=== PATIENT | female | born 1950 | race Caucasian/White ===

== ENCOUNTER → 2016-12-27 | Outpatient (CLI) | payer OTHER, MEDICARE ==
[~2016-12-27] MED LIST: ASCA500 PO; B-COTAB18 PO; CLB200 PO; CMD5 PO; COEN1CAP28 PO; COLLCAP PO; GLUC10007 PO; HYDROCHLOROTHIAZIDE PO; LEVO112T4 PO; METO-217 PO; TRIA75TA53 PO; TRIAMTERENE PO; ULT50X PO; VTMD1000 PO; ZCR20 PO
[2016-12-27 17:30] LABS: BASO % 0.5 %; BASO ABS # 0.05 K/uL (0-0.2); COMPLETE YES; EOS % 2.6 %; IG% 0.3 %; LYMPH % 23.4 %; LYMPH ABS # 2.34 K/uL (1.2-3.4); MEAN CELL VOLUME 89.9 fL (80-100); MEAN CORPUSCULAR HEMOGLOBIN 31.7 pg (25-34); MEAN CORPUSCULAR HGB CONC 35.2 g/dl (32-36); MEAN PLATELET VOLUME 11.4 fL (7.4-10.4); MONO % 7.7 %; NEUT % 65.5 %; PLATELET COUNT 308 K/uL (130-400); RED BLOOD COUNT 4.67 M/uL (4.2-5.4)
[2016-12-27 17:47] LABS: INR 2.1 (0.9-1.1); PROTHROMBIN TIME (PATIENT) 23.6 SECONDS (9.0-12.0)
[2016-12-27 18:04] LABS: BLOOD UREA NITROGEN 15 mg/dl (7-18); BUN/CREATININE RATIO 18.5 (10-20); CALCIUM 9.5 mg/dl (8.5-10.1); CARBON DIOXIDE 27 mmol/L (21-32); CHLORIDE 98 mmol/L (98-107); GLUCOSE 91 mg/dl (70-99); POTASSIUM 3.2 mmol/L (3.5-5.1); SODIUM 136 mmol/L (136-145)
[2016-12-27 18:17] LABS: ALB/GLOB RATIO 0.9 (0.9-2); ALKALINE PHOSPHATASE 68 U/L (45-117); ALT/SGPT 32 U/L (12-78); AST/SGOT 23 U/L (15-37); CHOLESTEROL 249 mg/dl (0-200); CHOLESTEROL/HDL RATIO 5.1; HDL CHOLESTEROL 49 mg/dl; LDL CHOLESTEROL CALCULATED 166 mg/dl; THYROID STIMULATING HORMONE 0.924 uIu/ml (0.300-4.500); TRIGLYCERIDES 170 mg/dl (0-150); VERY LOW DENSITY LIPOPROT CALC 34 mg/dl
== END | disposition home or self-care (01) ==
LOC: C.LABPBG 12:37
PROVIDERS: ATTEND Family Medicine
DX: E78.5 Hyperlipidemia, unspecified (principal); I10 Essential (primary) hypertension; E03.9 Hypothyroidism, unspecified; Z13.0 Encounter for screening for diseases of the blood and blood-forming organs and certain disorders involving the immune mechanism; I48.91 Unspecified atrial fibrillation

== ENCOUNTER → 2016-12-30 | Outpatient (CLI) | payer OTHER, MEDICARE ==
--- NOTE | 2017-01-03 12:31 | CODING QUERY MEDICAL NECESSITY ---
SUPPORTING DIAGNOSIS NEEDED A supporting diagnosis is required for the test/procedure performed on this patient in order for us to be reimbursed by the patient's insurance. Please provide a supporting diagnosis for the following test/procedure listed below next to the test name along with your signature. *If there is no additional diagnosis for this patient that would support the following test/procedure please document that below next to the test/procedure. Test(s)/Procedure(s) that require a supporting diagnosis: DOS 12/30 * Bone Density Study DIAGNOSIS: Provider Signature: Date: Thank you Mayda Mccollum Health Information Management Once completed, please kindly fax back to [phone] For questions please call [phone]
== END | disposition home or self-care (01) ==
LOC: C.MAMM 07:40
PROVIDERS: ATTEND Family Medicine
DX: Z13.820 Encounter for screening for osteoporosis (principal)

== ENCOUNTER → 2017-06-19 | Outpatient (CLI) | payer OTHER, MEDICARE | END | disposition home or self-care (01) | LOC: C.LABPBG 12:14 | PROVIDERS: ATTEND Family Medicine | DX: Z11.59 Encounter for screening for other viral diseases (principal); I48.91 Unspecified atrial fibrillation ==

== ENCOUNTER → 2017-08-07 | Outpatient (CLI) | payer OTHER, MEDICARE ==
[~2017-08-07] MED LIST changes: +OPTIRAY 320 IV PRN
--- NOTE | 2017-08-07 08:24 | DIAGNOSTIC IMAGING REPORT ---
CT SCAN OF THE ABDOMEN AND PELVIS COMBO CLINICAL HISTORY: Generalized abdominal pain. Hematoma. COMPARISON STUDY: No priors. TECHNIQUE: Before and following the IV administration of 115 cc of Optiray 320, CT scan of the abdomen and pelvis is performed from the lung bases to the proximal femora. Images are reviewed in the axial, sagittal, and coronal planes. IV contrast was administered without complication. A dose lowering technique was utilized adhering to the principles of ALARA. CT DOSE: 2743.94 mGy.cm FINDINGS: Lung bases: The heart is top normal in size and without pericardial effusion. The lung bases are clear noting bibasilar atelectasis. Liver: The contrast-enhanced liver is normal in size, contour, and attenuation. There is no intrahepatic biliary ductal dilatation. The hepatic veins and portal veins are patent. Gallbladder: Unremarkable. Spleen: Normal in size and attenuation. Pancreas: Unremarkable. Adrenal glands: Unremarkable. Kidneys: No renal calculi are identified on the unenhanced series. The contrast enhanced kidneys demonstrate mild cortical atrophy and are without hydronephrosis. The kidneys enhance symmetrically. Subcentimeter cortical hypodensities likely represent cysts but are too small for definitive characterization. Abdominal vasculature: The abdominal aorta is normal in course and caliber noting moderate atherosclerotic calcification. Bowel: There is a tiny duodenal diverticulum. A large complex umbilical hernia contains a segment of the transverse colon. No bowel obstruction is seen. There is mild to moderate diverticulosis of the left colon without CT evidence of acute diverticulitis. The appendix is not identified and reported surgically absent. Peritoneum/retroperitoneum: There is no intraperitoneal free air or abdominal ascites. No retroperitoneal hematoma is identified. Lymphadenopathy: None. Pelvic viscera: The bladder is normal as visualized. The uterus is surgically absent. No adnexal lesion is seen. Skeletal structures: The skeletal structures are osteopenic. Moderate lumbosacral spondylosis is observed. There are bilateral pars defects at L5 with advanced this space narrowing and 1.2 cm of anterolisthesis at L5-S1. Sclerotic change is noted in the pubic symphysis and sacroiliac joints. No lytic or blastic lesions are seen. IMPRESSION: 1. There are no acute infectious or inflammatory findings in the abdomen or pelvis. 2. There is a large complex umbilical hernia which contains a nonobstructed segment of the transverse colon. 3. There is mild to moderate diverticulosis of left colon without CT evidence of acute diverticulitis. 4. Additional findings as above. Electronically signed by: Baljit Fink M.D. 08/07/2017 8:23 AM Dictated Date/Time: 08/07/2017 8:15 AM
== END | disposition home or self-care (01) ==
LOC: C.CTS 07:24
PROVIDERS: ATTEND Family Medicine
DX: R10.9 Unspecified abdominal pain (principal); T14.8 Other injury of unspecified body region; X58.XXXA Exposure to other specified factors, initial encounter; K42.9 Umbilical hernia without obstruction or gangrene; K57.90 Diverticulosis of intestine, part unspecified, without perforation or abscess without bleeding

== ENCOUNTER → 2017-08-08 | Outpatient (CLI) | payer OTHER, MEDICARE ==
[~2017-08-08] MED LIST changes: -OPTIRAY 320 IV PRN
[2017-08-08 12:24] LABS: HEMATOCRIT 45.6 % (37-47); MEAN CELL VOLUME 92.9 fL (80-100); MEAN CORPUSCULAR HEMOGLOBIN 30.8 pg (25-34); MEAN CORPUSCULAR HGB CONC 33.1 g/dl (32-36); PLATELET COUNT 278 K/uL (130-400); RED BLOOD COUNT 4.91 M/uL (4.2-5.4); WHITE BLOOD COUNT 8.76 K/uL (4.8-10.8)
[2017-08-08 13:12] LABS: LYME DISEASE AB IGG NEG (NEG); LYME DISEASE AB IGM NEG (NEG)
[2017-08-08 13:15] LABS: ALB/GLOB RATIO 0.9 (0.9-2); ALT/SGPT 33 U/L (12-78); AST/SGOT 22 U/L (15-37); BLOOD UREA NITROGEN 15 mg/dl (7-18); CALCIUM 9.3 mg/dl (8.5-10.1); CARBON DIOXIDE 28 mmol/L (21-32); CHLORIDE 103 mmol/L (98-107); CREATININE 0.85 mg/dl (0.60-1.20); GLUCOSE 99 mg/dl (70-99); POTASSIUM 3.7 mmol/L (3.5-5.1); SODIUM 138 mmol/L (136-145)
[2017-08-08 13:38] LABS: ALKALINE PHOSPHATASE 57 U/L (45-117); THYROID STIMULATING HORMONE 0.439 uIu/ml (0.300-4.500)
== END | disposition home or self-care (01) ==
LOC: C.LABPBG 10:54
PROVIDERS: ATTEND Family Medicine
DX: I48.91 Unspecified atrial fibrillation (principal); R10.9 Unspecified abdominal pain; E03.9 Hypothyroidism, unspecified; T14.8 Other injury of unspecified body region; W57.XXXA Bitten or stung by nonvenomous insect and other nonvenomous arthropods, initial encounter

== ENCOUNTER 2017-08-12 14:44 | Observation (INO) | payer OTHER, MEDICARE ==
[~2017-08-12] VITALS: Ht 160 cm; Wt 96.8 kg
[~2017-08-12 14:44] MED LIST changes: -B-COTAB18 PO; -COEN1CAP28 PO; -COLLCAP PO; -TRIA75TA53 PO
[2017-08-12] MEDS ORDERED: TRIA75TA53 PO ×2 (15:20)
[2017-08-12] MEDS ORDERED: COLLCAP PO ×2 (15:21)
[2017-08-12] MEDS ORDERED: COEN1CAP28 PO ×2 (15:21)
[2017-08-12] MEDS ORDERED: B-COTAB18 PO ×2 (15:21)
[2017-08-12] MEDS ORDERED: ASPIRIN 81 MG CHEW PO STA (15:24)
[2017-08-12] MEDS ORDERED: NITROGLYCERIN 0.4 MG SL PER TAB CHARGE SL PRN ×2 (15:30→18:15)
[2017-08-12] MEDS ORDERED: OPTIRAY 320 IV PRN (15:30)
[2017-08-12 15:33] LABS: BASO % 0.4 %; BASO ABS # 0.04 K/uL (0-0.2); COMPLETE YES; EOS % 1.3 %; HEMATOCRIT 44.7 % (37-47); IG% 0.5 %; LYMPH % 22.7 %; LYMPH ABS # 2.26 K/uL (1.2-3.4); MEAN CELL VOLUME 89.6 fL (80-100); MEAN CORPUSCULAR HEMOGLOBIN 31.9 pg (25-34); MEAN CORPUSCULAR HGB CONC 35.6 g/dl (32-36); MEAN PLATELET VOLUME 10.7 fL (7.4-10.4); MONO % 5.8 %; NEUT % 69.3 %; PLATELET COUNT 258 K/uL (130-400); RED BLOOD COUNT 4.99 M/uL (4.2-5.4); WHITE BLOOD COUNT 9.95 K/uL (4.8-10.8)
--- NOTE | 2017-08-12 15:42 | DIAGNOSTIC IMAGING REPORT ---
CHEST ONE VIEW PORTABLE CLINICAL HISTORY: cp dyspnea COMPARISON STUDY: No previous studies for comparison. FINDINGS: The bones soft tissues and hemidiaphragms are normal. The cardiomediastinal silhouette is normal. The lungs are clear. The pulmonary vasculature is normal. IMPRESSION: Negative chest. The above report was generated using voice recognition software. It may contain grammatical, syntax or spelling errors. Electronically signed by: Yosef Osborne M.D. 08/12/2017 3:41 PM Dictated Date/Time: 08/12/2017 3:40 PM
[2017-08-12 15:52] LABS: ALT/SGPT 32 U/L (12-78); AST/SGOT 24 U/L (15-37); BLOOD UREA NITROGEN 11 mg/dl (7-18); CALCIUM 9.7 mg/dl (8.5-10.1); CARBON DIOXIDE 27 mmol/L (21-32); CHLORIDE 99 mmol/L (98-107); GLUCOSE 97 mg/dl (70-99); POTASSIUM 3.2 mmol/L (3.5-5.1); SODIUM 136 mmol/L (136-145)
[2017-08-12 15:57] LABS: ALKALINE PHOSPHATASE 58 U/L (45-117)
[2017-08-12] MEDS ORDERED: MoRPHine SULFATE 10 MG/ML CARP/VIAL IV STA (16:02)
[2017-08-12] MEDS ORDERED: ONDANSETRON INJ 2 MG/ML 2 ML VIAL IV STA (16:02)
--- NOTE | 2017-08-12 17:20 | DIAGNOSTIC IMAGING REPORT ---
CT OF THE ABDOMEN AND PELVIS WITH CONTRAST CLINICAL HISTORY: Abdominal pain. COMPARISON STUDY: CT of the abdomen and pelvis August 07, 2017. TECHNIQUE: Following IV administration of 116 mL of Optiray-320, axial images of the abdomen and pelvis were obtained from the lung bases to the proximal femurs. Images were reviewed in the axial, sagittal, and coronal planes. IV contrast was administered without complication. A dose lowering technique was utilized adhering to the principles of ALARA. CT DOSE: 1281.59 mGy.cm FINDINGS: Fatty infiltration of the liver is noted. No hepatic lesions are present. There are multiple subcentimeter renal lesions which are too small to characterize. The spleen, adrenal glands and pancreas are unremarkable. There is mild gallbladder distention without pericholecystic infiltration. Note is made of an umbilical hernia which contains a portion of the transverse colon. There is no resultant bowel obstruction. Left colon diverticulosis is noted without evidence for acute diverticulitis. The appendix is not identified. There is no lymphadenopathy. No suspicious osseous lesion is present. IMPRESSION: 1. No bowel obstruction. Umbilical hernia which contains a portion of the transverse colon which is unchanged since prior CT. 2. Mild gallbladder distention without pericholecystic infiltration. 3. Fatty liver. Electronically signed by: Irwin Aranda M.D. 08/12/2017 5:19 PM Dictated Date/Time: 08/12/2017 5:06 PM
--- NOTE | 2017-08-12 18:02 | History and Physical ---
History & Physical Date & Time of Service: Aug 12, 2017 at 18:00 Chief Complaint: Abdominal Pain And Chest Discomfort Primary Care Physician: Julia Waller, History of Present Illness Source: patient This is a 66 yo F with PMHx of hypertension, hyperlipidemia, atrial fibrillation on coumadin, hypothyroidism s/p subtotal thyroidectomy from Graves disease, history of uterine carcinoma s/p KHLOE in 2001 and obesity with BMI=38.7 , presenting with abdominal pain/hematoma and chest pain to the ER today. The patient notes that her pain in her abdomen began approximately 2 weeks ago around the umbilicus. She noticed a burning and slight tenderness at that time, and then developed an area of ecchymosis on the upper right side of her umbilicus which extended down to the suprapubic region. The patient decided that he should stop taking her Coumadin for 2 days, this was approximately 10 days ago, and then resumed it once the bruising was improving. The patient was seen by Dr. Waller in the office on 08/01/[address] of the abdomen ordered which was completed 08/07/17 which showed no bowel obstruction. There is an umbilical hernia which contains a portion of the transverse colon. A repeat CT abd completed today shows no changes. The patient was concerned about developing chest pain along with the abdominal pain today. The patient admits that she has a small dog which frequently jumps up on the middle of her chest, and attributes some of the pain/soreness to that. She denies any sharp or quick pains in the chest, no radiation, no lightheadedness or dizziness. She does admit that it feels somewhat like an anxiety attack. The patient's bowels last moved this morning which appeared normal to her. She has tolerated regular diet and denies any nausea or vomiting. Here in the ER the patient's initial troponin is negative. Her potassium is slightly low at 3.2. Checking INR as one was not drawn in the ER. No leukocytosis. Other labs are within normal limits. ET of the abdomen and pelvis was reviewed and shows no bowel obstruction. Umbilical hernia which contains portion of the transverse colon, unchanged from prior CT. Past Medical/Surgical History Atrial fibrillation on Coumadin Hypothyroidism History of uterine carcinoma Hypertension Hyperlipidemia Obesity, BMI equals 38.7 Surgical history Tonsillectomy and adenoidectomy Subtotal thyroidectomy Total abdominal hysterectomy Social History Smoking Status: Never Smoker Alcohol Use: occasionally (once per year) Drug Use: none Housing status: lives with family (mother) Occupational Status: retired (nurse) Allergies Coded Allergies: Tetanus Toxoid (Verified Allergy, Unknown, LOCAL REACTION, 08/12/17) Home Medications Scheduled Ascorbic Acid (Vitamin C), 1,000 MG PO DAILY B-Complex Vitamins (Vitamin B Complex), 1 TAB PO DAILY Cholecalciferol (Vitamin D3), 5,000 TAB PO 5XWK Coenzyme Q10 (Ubidecarenone) (Co Q10), 200 MG PO DAILY Collagen-Vitamin C (Collagen Plus Vitamin C), 1 CAP PO DAILY Levothyroxine Sodium (Levothyroxine Sodium), 112 MCG PO DAILY Metoprolol Succinate (Toprol Xl), 50 MG PO BID Triamterene/Hctz (Maxzide 75MG/50MG), 1 TAB PO QAM Warfarin Sod (Coumadin), 5 MG PO DAILY Review of Systems Constitutional: No fever, sweats or chills Eyes: No diplopia, no worsening or blurred vision ENT: normal hearing, no trouble swallowing Respiratory: No cough, sputum, dyspnea at rest or on exertion Cardiovascular: + chest pain, No tightness or palpitations Abdomen: + pain, No nausea, vomiting, diarrhea or constipation Musculoskeletal: No joint pain, calf pain, swelling Neurologic: No weakness, numbness/tingling, or balance problems Psychiatric: No anxiety or depression Skin: No rash or itch Physical Exam Vital Signs Date Time Temp Pulse Resp B/P (MAP) Pulse Ox O2 Delivery O2 Flow Rate FiO2 08/12/17 16:49 87 16 96 08/12/17 16:44 87 16 96 08/12/17 16:39 90 14 96 08/12/17 16:34 93 11 97 08/12/17 16:29 95 16 97 08/12/17 16:24 98 16 97 08/12/17 16:19 105 13 96 08/12/17 16:14 90 13 96 08/12/17 16:09 99 14 97 08/12/17 16:04 90 11 97 08/12/17 16:04 82 08/12/17 16:02 95 20 147/80 97 Room Air 08/12/17 15:59 89 11 95 08/12/17 15:54 106 9 95 08/12/17 15:49 106 17 98 08/12/17 15:41 147/80 08/12/17 14:52 36.6 95 18 164/91 97 Room Air General: awake, alert, no apparent distress, obese Head: Normocephalic, atraumatic ENT: PERRL, EOMI, no pharyngeal exudate, mucous membranes moist Chest: Clear to auscultation, on room air, no adventitious breath sounds Cardiac: nontender with palpation, +irregularly irregular, no murmur, no JVD, normal peripheral pulses Abdominal: + Ecchymosis below the umbilicus, + hard area underlying ecchymotic area, NABS x 4 quadrants, soft, nontender to palpation, no rebound, guarding or tenderness Extremities: Normal inspection, no peripheral edema or erythema, calfs nontender to palpation Psych: Normal mood and affect Neuro: AAO x 3, strength intact bilaterally and related 5/5, no motor deficits, speech is clear, no peripheral sensory deficits Diagnostics Laboratory Results Results Past 24 Hours Test 08/12/17 15:18 Range/Units White Blood Count 9.95 4.8-10.8 K/uL Red Blood Count 4.99 4.2-5.4 M/uL Hemoglobin 15.9 12.0-16.0 g/dL Hematocrit 44.7 37-47 % Mean Corpuscular Volume 89.6 80-100 fL Mean Corpuscular Hemoglobin 31.9 25-34 pg Mean Corpuscular Hemoglobin Concent 35.6 32-36 g/dl Platelet Count 258 130-400 K/uL Mean Platelet Volume 10.7 7.4-10.4 fL Neutrophils (%) (Auto) 69.3 % Lymphocytes (%) (Auto) 22.7 % Monocytes (%) (Auto) 5.8 % Eosinophils (%) (Auto) 1.3 % Basophils (%) (Auto) 0.4 % Neutrophils # (Auto) 6.89 1.4-6.5 K/uL Lymphocytes # (Auto) 2.26 1.2-3.4 K/uL Monocytes # (Auto) 0.58 0.11-0.59 K/uL Eosinophils # (Auto) 0.13 0-0.5 K/uL Basophils # (Auto) 0.04 0-0.2 K/uL RDW Standard Deviation 44.8 36.4-46.3 fL RDW Coefficient of Variation 13.7 11.5-14.5 % Immature Granulocyte % (Auto) 0.5 % Immature Granulocyte # (Auto) 0.05 0.00-0.02 K/uL Sodium Level 136 136-145 mmol/L Potassium Level 3.2 3.5-5.1 mmol/L Chloride Level 99 98-107 mmol/L Carbon Dioxide Level 27 21-32 mmol/L Anion Gap 10.0 3-11 mmol/L Blood Urea Nitrogen 11 7-18 mg/dl Creatinine 0.80 0.60-1.20 mg/dl Est Creatinine Clear Calc Drug Dose 78.7 ml/min Estimated GFR () 89.7 Estimated GFR (Non- 77.4 BUN/Creatinine Ratio 14.0 10-20 Random Glucose 97 70-99 mg/dl Calcium Level 9.7 8.5-10.1 mg/dl Total Bilirubin 0.7 0.2-1 mg/dl Direct Bilirubin 0.2 0-0.2 mg/dl Aspartate Amino Transf (AST/SGOT) 24 15-37 U/L Alanine Aminotransferase (ALT/SGPT) 32 12-78 U/L Alkaline Phosphatase 58 45-117 U/L Troponin I < 0.015 0-0.045 ng/ml Total Protein 8.1 6.4-8.2 gm/dl Albumin 3.9 3.4-5.0 gm/dl Lipase 99 73-393 U/L Diagnostic Radiology CHEST ONE VIEW PORTABLE CLINICAL HISTORY: cp dyspnea COMPARISON STUDY: No previous studies for comparison. FINDINGS: The bones soft tissues and hemidiaphragms are normal. The cardiomediastinal silhouette is normal. The lungs are clear. The pulmonary vasculature is normal. IMPRESSION: Negative chest. The above report was generated using voice recognition software. It may contain grammatical, syntax or spelling errors. Electronically signed by: Yosef Osborne M.D. 08/12/2017 3:41 PM Dictated Date/Time: 08/12/2017 3:40 PM The status of this report is Signed. CT OF THE ABDOMEN AND PELVIS WITH CONTRAST CLINICAL HISTORY: Abdominal pain. COMPARISON STUDY: CT of the abdomen and pelvis August 07, 2017. TECHNIQUE: Following IV administration of 116 mL of Optiray-320, axial images of the abdomen and pelvis were obtained from the lung bases to the proximal femurs. Images were reviewed in the axial, sagittal, and coronal planes. IV contrast was administered without complication. A dose lowering technique was utilized adhering to the principles of ALARA. CT DOSE: 1281.59 mGy.cm FINDINGS: Fatty infiltration of the liver is noted. No hepatic lesions are present. There are multiple subcentimeter renal lesions which are too small to characterize. The spleen, adrenal glands and pancreas are unremarkable. There is mild gallbladder distention without pericholecystic infiltration. Note is made of an umbilical hernia which contains a portion of the transverse colon. There is no resultant bowel obstruction. Left colon diverticulosis is noted without evidence for acute diverticulitis. The appendix is not identified. There is no lymphadenopathy. No suspicious osseous lesion is present. IMPRESSION: 1. No bowel obstruction. Umbilical hernia which contains a portion of the transverse colon which is unchanged since prior CT. 2. Mild gallbladder distention without pericholecystic infiltration. 3. Fatty liver. Electronically signed by: Irwin Aranda M.D. 08/12/2017 5:19 PM Dictated Date/Time: 08/12/2017 5:06 PM The status of this report is Signed. EKG Vent. rate 81 BPM GA interval * ms QRS duration 90 ms QT/QTc 398/462 ms P-R-T axes * 0 17 Atrial fibrillation Poor R wave progression, consider anterior MO vs. lead placement vs. LVH Abnormal ECG When compared with ECG of 21-OCT-2014 15:54, No significant change Confirmed by DONNIE SWEENEY ([id number]) on 08/12/2017 4:38:32 PM Impression Assessment and Plan This is a 66 yo F with PMHx of hypertension, hyperlipidemia, atrial fibrillation on coumadin, hypothyroidism s/p subtotal thyroidectomy from Graves disease, history of uterine carcinoma s/p KHLOE in 2001 and obesity with BMI=38.7 , presenting with abdominal pain/hematoma and chest pain to the ER today. The patient notes that her pain in her abdomen began approximately 2 weeks ago around the umbilicus. Chest pain - Admit the patient to telemetry for observation - Initial troponin was negative, will trend 2 more sets - EKG reviewed showing atrial fibrillation, no signs of ST wave inversion or ischemia - Chest is nontender to palpation on exam - Nitroglycerin tabs when necessary Abdominal pain Abdominal hematoma - CT abd/pelvis reviewed which showing an umbilical hernia with portion of the transverse colon. No obstruction. Fatty liver. Mild gallbladder distention without pericholecystic infiltration. - Allow liquid diet for bowel rest- patient not complaining of nausea or vomiting, last bowel movement was this morning, is passing gas. - Checking INR with abdominal hematoma - Gen. surgery consulted for consultation of umbilical hernia repair Atrial fibrillation - Continue Coumadin 5 mg PO daily - Checking INR, adjust Coumadin accordingly, follow up with a.m. labs Hypertension - Continue Toprol-XL 50 mg BID and triamterene/HCTZ 75/50 QAM. Obesity BMI=38.7 - Diet and exercise should continue to be encouraged DVT prophylaxis: Teds, SCDs, Coumadin CODE STATUS: Full code Disposition: Admit to telemetry for observation, patient from home. Level of Care Telemetry Resuscitation Status FULL RESUSCITATION VTE Prophylaxis VTE Risk Assessment Done? Y/N: Yes Risk Level: Low Given or contraindicated: Warfarin (Coumadin), T.E.D. Stockings, SCD's
[2017-08-12] MEDS ORDERED: ACETAMINOPHEN 325 MG TAB PO PRN (18:15)
[2017-08-12] MEDS ORDERED: ONDANSETRON INJ 2 MG/ML 2 ML VIAL IV PRN (18:15)
[2017-08-12 19:24] VITALS: BP 144/83; PULSE 87; TEMP 36.8; O2SAT 97
[2017-08-12 20:21] LABS: INR 1.9 (0.9-1.1); PROTHROMBIN TIME (PATIENT) 21.4 SECONDS (9.0-12.0)
[2017-08-12] MEDS ORDERED: POTASSIUM CHLORIDE 20 MEQ TABCR PO STA (20:39)
--- NOTE | 2017-08-12 20:39 | Surgery Consultation ---
Consultation Date of Consultation: Aug 12, 2017. Attending Physician: Rafael Calero MD, PhD History of Present Illness Fariha Angeles is a 66 year old woman with HTN, hyperlipidemia, atrial fibrillation on coumadin, hypothyroidism s/p subtotal thyroidectomy (Graves diseas), hx of uterine carcinoma s/p KHLOE in 2001 who presents with abdominal pain radiating into her chest. Patient states she has had an umbilical hernia for approximately 15 years s/p her hysterectomy. It has been very slowly growing in size, but otherwise has not caused any pain or discomfort. Approximately 2 weeks ago, she noticed bruising around the umbilicus and presented to her PCP for evaluation. A CT scan was completed on 08/07/17, which showed an umbilical hernia containing transverse colon - but otherwise no signs of obstruction or other abnormalities. The bruising eventually resolved. Today , she started having epigastric pain which radiated into her chest. She presented to the ED for evaluation. A cardiac workup was initiated, and a CT scan was repeated - which again shows an umbilical hernia containing a portion of transverse colon, no signs of obstruction. Patient has not had any nausea or vomiting since start of symptoms. Denies constipation / diarrhea, melena / hematochezia. Denies fever, chills, headaches, dizziness, vision changes, SOB, abdominal pain, changes in weight or appetite, N/V, dysuria or urinary symptoms , pain / numbness / swelling / tingling in extremities. Social History Smoking Status: Never Smoker Alcohol Use: occasionally (once per year) Drug Use: none Occupation Status: retired (nurse) Allergies Coded Allergies: Tetanus Toxoid (Verified Allergy, Unknown, LOCAL REACTION, 08/12/17) Home Medications Scheduled Ascorbic Acid (Vitamin C), 1,000 MG PO DAILY B-Complex Vitamins (Vitamin B Complex), 1 TAB PO DAILY Cholecalciferol (Vitamin D3), 5,000 TAB PO 5XWK Coenzyme Q10 (Ubidecarenone) (Co Q10), 200 MG PO DAILY Collagen-Vitamin C (Collagen Plus Vitamin C), 1 CAP PO DAILY Levothyroxine Sodium (Levothyroxine Sodium), 112 MCG PO DAILY Metoprolol Succinate (Toprol Xl), 50 MG PO BID Triamterene/Hctz (Maxzide 75MG/50MG), 1 TAB PO QAM Warfarin Sod (Coumadin), 5 MG PO DAILY Current Inpatient Medications Current Inpatient Medications Medications (Trade) Dose Ordered Sig/Molly Route Start Time Stop Time Status Last Admin Dose Admin Ioversol (Optiray 320) 100 ml UD PRN IV 08/12/17 15:30 08/16/17 15:29 Acetaminophen (Tylenol Tab) 650 mg Q4H PRN PO 08/12/17 18:15 09/11/17 18:14 Ondansetron HCl (Zofran Inj) 4 mg Q6H PRN IV 08/12/17 18:15 09/11/17 18:14 Nitroglycerin (Nitrostat Tab) 0.4 mg UD PRN SL 08/12/17 18:15 09/11/17 18:14 Aspirin (Ecotrin Tab) 81 mg QAM PO 08/13/17 09:00 09/12/17 08:59 Levothyroxine Sodium (Synthroid Tab) 112 mcg DAILYBB PO 08/13/17 06:30 09/12/17 06:29 Metoprolol Succinate (Toprol Xl Tab) 50 mg BID PO 08/12/17 21:00 09/11/17 20:59 Triamterene/HCTZ (Dyazide 37.5/25 Mg Cap) 2 cap QAM PO 08/13/17 09:00 09/12/17 08:59 Warfarin Sodium (Coumadin Tab) 5 mg DAILY@1600 PO 08/12/17 21:00 09/11/17 20:59 Review of Systems Constitutional: No fever, No chills, No sweats Eyes: No worsening of vision Respiratory: No cough, No sputum, No shortness of breath Cardiovascular: + chest pain Abdomen: + pain, No nausea, No vomiting, No diarrhea, No constipation, No GI bleeding Genitourinary - Female: No dysuria Physical Exam Date Time Temp Pulse Resp B/P (MAP) Pulse Ox O2 Delivery O2 Flow Rate FiO2 08/12/17 19:24 36.8 87 16 144/83 (103) 97 Room Air 08/12/17 19:11 36.6 85 18 126/87 96 08/12/17 18:56 85 18 126/87 96 Room Air 08/12/17 16:49 87 16 96 08/12/17 16:44 87 16 96 08/12/17 16:39 90 14 96 08/12/17 16:34 93 11 97 08/12/17 16:29 95 16 97 08/12/17 16:24 98 16 97 08/12/17 16:19 105 13 96 08/12/17 16:14 90 13 96 08/12/17 16:09 99 14 97 08/12/17 16:04 90 11 97 08/12/17 16:04 82 08/12/17 16:02 95 20 147/80 97 Room Air 08/12/17 15:59 89 11 95 08/12/17 15:54 106 9 95 08/12/17 15:49 106 17 98 08/12/17 15:41 147/80 08/12/17 14:52 36.6 95 18 164/91 97 Room Air General Appearance: WD/WN, no apparent distress Head: normocephalic Neck: supple Respiratory/Chest: lungs clear, normal breath sounds Cardiovascular: regular rate, rhythm, no edema Abdomen/GI: normal bowel sounds, non tender, soft, + hernia (palpable umbilical hernia, soft, mildly tender to palpation; incompletely reducible. No overlying skin changes. Mild ecchymoses noted around umbilicus.) Extremities/Musculoskelatal: normal inspection Skin: normal color, warm/dry, no rash Laboratory Results Last 24 Hours Test 08/12/17 15:18 White Blood Count 9.95 K/uL Red Blood Count 4.99 M/uL Hemoglobin 15.9 g/dL Hematocrit 44.7 % Mean Corpuscular Volume 89.6 fL Mean Corpuscular Hemoglobin 31.9 pg Mean Corpuscular Hemoglobin Concent 35.6 g/dl Platelet Count 258 K/uL Mean Platelet Volume 10.7 fL Neutrophils (%) (Auto) 69.3 % Lymphocytes (%) (Auto) 22.7 % Monocytes (%) (Auto) 5.8 % Eosinophils (%) (Auto) 1.3 % Basophils (%) (Auto) 0.4 % Neutrophils # (Auto) 6.89 K/uL Lymphocytes # (Auto) 2.26 K/uL Monocytes # (Auto) 0.58 K/uL Eosinophils # (Auto) 0.13 K/uL Basophils # (Auto) 0.04 K/uL RDW Standard Deviation 44.8 fL RDW Coefficient of Variation 13.7 % Immature Granulocyte % (Auto) 0.5 % Immature Granulocyte # (Auto) 0.05 K/uL Prothrombin Time 21.4 SECONDS Prothromb Time International Ratio 1.9 Sodium Level 136 mmol/L Potassium Level 3.2 mmol/L Chloride Level 99 mmol/L Carbon Dioxide Level 27 mmol/L Anion Gap 10.0 mmol/L Blood Urea Nitrogen 11 mg/dl Creatinine 0.80 mg/dl Est Creatinine Clear Calc Drug Dose 78.7 ml/min Estimated GFR () 89.7 Estimated GFR (Non- 77.4 BUN/Creatinine Ratio 14.0 Random Glucose 97 mg/dl Calcium Level 9.7 mg/dl Total Bilirubin 0.7 mg/dl Direct Bilirubin 0.2 mg/dl Aspartate Amino Transf (AST/SGOT) 24 U/L Alanine Aminotransferase (ALT/SGPT) 32 U/L Alkaline Phosphatase 58 U/L Troponin I < 0.015 ng/ml Total Protein 8.1 gm/dl Albumin 3.9 gm/dl Lipase 99 U/L 08/12/17 CT Abd / Pelvis with IV contrast: IMPRESSION: 1. No bowel obstruction. Umbilical hernia which contains a portion of the transverse colon which is unchanged since prior CT. 2. Mild gallbladder distention without pericholecystic infiltration. 3. Fatty liver. Assessment & Plan Fariha Angeles is a 66 year old woman who presents with an umbilical hernia containing transverse colon. -No acute surgical intervention indicated at this time -Hernia is not acute; it is no causing any obstruction, is reducible. No signs / symptoms of incarceration or infection. No change from prior CT scan. -Continue medical management / workup of chest pain -May follow up in clinic for discussion of elective umbilical hernia repair - would need to stop coumadin / normalize INR prior to surgery -Patient agrees with the above plan -Will continue to follow Lisbet Rodríguez MD 08/12/17
--- NOTE | 2017-08-12 20:56 | EMERGENCY ROOM VISIT NOTE ---
History Report prepared by Hiwot: Sigrid Frias Under the Supervision of: Dr. Fortino Ballard D.O. First contact with patient: 14:58 Chief Complaint: ABDOMINAL PAIN Stated Complaint: ABDOMINAL PAIN AND CHEST DISCOMFORT Nursing Triage Summary: Pt presents with c/o "problems with Coumadin and had a hematoma on abdomen. Had a CT on that shows "a large, complex umbilical hernia." Continues to have pain in abd and chest. Denies n/v/d. History of Present Illness The patient is a 66 year old female who presents to the Emergency Room with complaints of intermittent chest pain starting 1.5 days ago. She describes the pain as a pressure. The pain is relieved by laying down and stretching out. It does not change with eating or drinking. The pain lasts for a couple minutes at a time. She has never had this before. She has had intermittent abdominal pain for the past 2 weeks. She has a hematoma on her abdomen. She had a CT last which showed an umbilical hernia. She is still having intermittent pain. She denies any tingling up the neck, cough, rhinorrhea, SOB, arm pain, or jaw pain. Her last bowel movement was this morning. There was no change. She is on Coumadin for A fib. She has a history of hypertension and high cholesterol. He denies any history of diabetes, [place], or heart disease. She has not had any heart catheterizations. She has had a hysterectomy and appendectomy. She still has her gallbladder. Her last stress test was over 2 years ago. She denies any history of smoking. Source of History: patient Onset: 1.5 days ago Position: chest Quality: pressure Timing: intermittent Modifying Factors (Relieving): stretching Associated Symptoms: + abdominal pain, No cough, No neck pain, No SOB Note: Pt denies rhinorrhea, arm pain, jaw pain. Review of Systems See HPI for pertinent positives & negatives. A total of 10 systems reviewed and were otherwise negative. Past Medical & Surgical Medical Problems: (1) Chest pain Family History No pertinent family history stated. Social History Smoking Status: Never Smoker Occupation Status: retired Current/Historical Medications Scheduled Ascorbic Acid (Vitamin C), 1,000 MG PO DAILY B-Complex Vitamins (Vitamin B Complex), 1 TAB PO DAILY Cholecalciferol (Vitamin D3), 5,000 TAB PO 5XWK Coenzyme Q10 (Ubidecarenone) (Co Q10), 200 MG PO DAILY Collagen-Vitamin C (Collagen Plus Vitamin C), 1 CAP PO DAILY Levothyroxine Sodium (Levothyroxine Sodium), 112 MCG PO DAILY Metoprolol Succinate (Toprol Xl), 50 MG PO BID Triamterene/Hctz (Maxzide 75MG/50MG), 1 TAB PO QAM Warfarin Sod (Coumadin), 5 MG PO DAILY Allergies Coded Allergies: Tetanus Toxoid (Verified Allergy, Unknown, LOCAL REACTION, 08/12/17) Physical Exam Vital Signs Date Time Temp Pulse Resp B/P (MAP) Pulse Ox O2 Delivery O2 Flow Rate FiO2 08/12/17 16:49 87 16 96 08/12/17 16:44 87 16 96 08/12/17 16:39 90 14 96 08/12/17 16:34 93 11 97 08/12/17 16:29 95 16 97 08/12/17 16:24 98 16 97 08/12/17 16:19 105 13 96 08/12/17 16:14 90 13 96 08/12/17 16:09 99 14 97 08/12/17 16:04 90 11 97 08/12/17 16:04 82 08/12/17 16:02 95 20 147/80 97 Room Air 08/12/17 15:59 89 11 95 08/12/17 15:54 106 9 95 08/12/17 15:49 106 17 98 08/12/17 15:41 147/80 08/12/17 14:52 36.6 95 18 164/91 97 Room Air Physical Exam GENERAL: sitting up in bed, obese, nontoxic, talking in full sentences. EYE EXAM: normal conjunctiva OROPHARYNX: no exudate, no erythema, lips, buccal mucosa, and tongue normal and mucous membranes are moist NECK: supple, no nuchal rigidity, no adenopathy, non-tender CHEST: No reproducible anterior chest wall pain. LUNGS: Clear to auscultation. Normal chest wall mechanics HEART: no murmurs, S1 normal and S2 normal ABDOMEN: abdomen soft, minimal tenderness around the umbilicus where bruise is located, normo-active bowel sounds, no masses, no rebound or guarding. BACK: Back is symmetrical on inspection and there is no deformity, no midline tenderness, no CVA tenderness. SKIN: no rashes and no bruising UPPER EXTREMITIES: upper extremities are grossly normal. LOWER EXTREMITIES: No pitting edema. Calves equal bilaterally. NEURO EXAM: Normal sensorium, cranial nerves II-XII grossly intact, normal speech, no gross weakness of arms, no gross weakness of legs. Medical Decision & Procedures ER Provider Diagnostic Interpretation: Radiology results as stated below per my review and the radiologist's interpretation: CHEST ONE VIEW PORTABLE CLINICAL HISTORY: cp dyspnea COMPARISON STUDY: No previous studies for comparison. FINDINGS: The bones soft tissues and hemidiaphragms are normal. The cardiomediastinal silhouette is normal. The lungs are clear. The pulmonary vasculature is normal. IMPRESSION: Negative chest. The above report was generated using voice recognition software. It may contain grammatical, syntax or spelling errors. Electronically signed by: Yosef Osborne M.D. 08/12/2017 3:41 PM Dictated Date/Time: 08/12/2017 3:[address] OF THE ABDOMEN AND PELVIS WITH CONTRAST CLINICAL HISTORY: Abdominal pain. COMPARISON STUDY: CT of the abdomen and pelvis August 07, 2017. TECHNIQUE: Following IV administration of 116 mL of [id number]-320, axial images of the abdomen and pelvis were obtained from the lung bases to the proximal femurs. Images were reviewed in the axial, sagittal, and coronal planes. IV contrast was administered without complication. A dose lowering technique was utilized adhering to the principles of ALARA. CT DOSE: 1281.59 mGy.cm FINDINGS: Fatty infiltration of the liver is noted. No hepatic lesions are present. There are multiple subcentimeter renal lesions which are too small to characterize. The spleen, adrenal glands and pancreas are unremarkable. There is mild gallbladder distention without pericholecystic infiltration. Note is made of an umbilical hernia which contains a portion of the transverse colon. There is no resultant bowel obstruction. Left colon diverticulosis is noted without evidence for acute diverticulitis. The appendix is not identified. There is no lymphadenopathy. No suspicious osseous lesion is present. IMPRESSION: 1. No bowel obstruction. Umbilical hernia which contains a portion of the transverse colon which is unchanged since prior CT. 2. Mild gallbladder distention without pericholecystic infiltration. 3. Fatty liver. Electronically signed by: Irwin Aranda M.D. 08/12/2017 5:19 PM Dictated Date/Time: 08/12/2017 5:06 PM Laboratory Results 08/12/17 15:18 Red Blood Count 4.99, Mean Corpuscular Volume 89.6, Mean Corpuscular Hemoglobin 31.9, Mean Corpuscular Hemoglobin Concent 35.6, Mean Platelet Volume 10.7, Neutrophils (%) (Auto) 69.3, Lymphocytes (%) (Auto) 22.7, Monocytes (%) (Auto) 5.8, Eosinophils (%) (Auto) 1.3, Basophils (%) (Auto) 0.4, Neutrophils # (Auto) 6.89, Lymphocytes # (Auto) 2.26, Monocytes # (Auto) 0.58, Eosinophils # (Auto) 0.13, Basophils # (Auto) 0.04 08/12/17 15:18 Test 08/12/17 15:18 White Blood Count 9.95 K/uL (4.8-10.8) Red Blood Count 4.99 M/uL (4.2-5.4) Hemoglobin 15.9 g/dL (12.0-16.0) Hematocrit 44.7 % (37-47) Mean Corpuscular Volume 89.6 fL (80-100) Mean Corpuscular Hemoglobin 31.9 pg (25-34) Mean Corpuscular Hemoglobin Concent 35.6 g/dl (32-36) Platelet Count 258 K/uL (130-400) Mean Platelet Volume 10.7 fL (7.4-10.4) Neutrophils (%) (Auto) 69.3 % Lymphocytes (%) (Auto) 22.7 % Monocytes (%) (Auto) 5.8 % Eosinophils (%) (Auto) 1.3 % Basophils (%) (Auto) 0.4 % Neutrophils # (Auto) 6.89 K/uL (1.4-6.5) Lymphocytes # (Auto) 2.26 K/uL (1.2-3.4) Monocytes # (Auto) 0.58 K/uL (0.11-0.59) Eosinophils # (Auto) 0.13 K/uL (0-0.5) Basophils # (Auto) 0.04 K/uL (0-0.2) RDW Standard Deviation 44.8 fL (36.4-46.3) RDW Coefficient of Variation 13.7 % (11.5-14.5) Immature Granulocyte % (Auto) 0.5 % Immature Granulocyte # (Auto) 0.05 K/uL (0.00-0.02) Prothrombin Time 21.4 SECONDS (9.0-12.0) Prothromb Time International Ratio 1.9 (0.9-1.1) Anion Gap 10.0 mmol/L (3-11) Est Creatinine Clear Calc Drug Dose 78.7 ml/min Estimated GFR () 89.7 Estimated GFR (Non- 77.4 BUN/Creatinine Ratio 14.0 (10-20) Calcium Level 9.7 mg/dl (8.5-10.1) Total Bilirubin 0.7 mg/dl (0.2-1) Direct Bilirubin 0.2 mg/dl (0-0.2) Aspartate Amino Transf (AST/SGOT) 24 U/L (15-37) Alanine Aminotransferase (ALT/SGPT) 32 U/L (12-78) Alkaline Phosphatase 58 U/L (45-117) Troponin I < 0.015 ng/ml (0-0.045) Total Protein 8.1 gm/dl (6.4-8.2) Albumin 3.9 gm/dl (3.4-5.0) Lipase 99 U/L (73-393) Laboratory results per my review. Medications Administered Medications (Trade) Dose Ordered Sig/Molly Route Start Time Stop Time Status Last Admin Dose Admin Aspirin (Aspirin Chew) 324 mg NOW STAT PO 08/12/17 15:24 08/12/17 15:25 DC 08/12/17 15:50 324 MG Nitroglycerin (Nitrostat Tab) 0.4 mg Q5M PRN SL 08/12/17 15:30 08/12/17 19:37 DC 08/12/17 15:50 0.4 MG ECG Indication: chest pain Rate (beats per minute): 81 Rhythm: atrial fibrillation Findings: Q waves (Inferior), other (normal axis) Comparison ECG Date: 21-Oct-2014 Change: no significant change ED Course ED COURSE: Vital signs were reviewed and showed hypertension. The patients medical record was reviewed The above diagnostic studies were performed and reviewed. ED treatments and interventions as stated above. 1500: The patient was evaluated in room B10. A complete history and physical examination was performed. 1524: Aspirin 324 mg PO. 1530: Nitroglycerin 0.4 mg SL. 1600: I reevaluated the patient. Her chest pain was not improved with nitro. 1634: I reevaluated the patient. She is doing well. 1733: Upon reevaluation, the patient is chest pain free. I discussed my findings with the patient and she understands and agrees with the treatment plan. Based on the patients age, coexisting illnesses, exam and lab findings the decision to treat as an inpatient was made. The patient remained stable while under my care. The patient will be evaluated for further management. 175: I reviewed the patient's case with ADAIR Kearney hospitalist. He will evaluate the patient for further management. Medical Decision Differential diagnoses includes but is not limited to acute coronary syndrome, myocardial infarction, pericarditis, pulmonary embolus, aortic dissection, pneumonia, pneumothorax, musculoskeletal, shingles, esophageal. Patient is a 66-year-old female who presents to ER for precordial chest pressure which has been coming going for the past 48 hours. She also complains of persistent lower abdominal pain which is present over the past week which does come and go as well but they are not related. She does have a history of hypertension and hyperlipidemia. She is obese. CBC able BMP, LFTs and bilirubin and troponin were negative. Lipase was normal. INR was subtherapeutic at 1.9. CT of the abdomen and pelvis shows no acute process. She was given aspirin. EKG was nondiagnostic. Chest x-ray unremarkable. She is given nitroglycerin but she thought this worsen the pain. Her pain did resolve shortly after however. With her risk factors follows reasonable to observe her overnight. She was agreeable. Discussed case with internal medicine. Medication Reconcilliation Current Medication List: was personally reviewed by me Blood Pressure Screening Patient's blood pressure: Elevated blood pressure Blood pressure disposition: Elevated BP felt to be situational Consults Time Called: [phone] Consulting Physician: ADAIR Kearney hospitalist Returned Call: 175 I reviewed the patient's case with him. He will evaluate the patient for further management. Impression Primary Impression: Precordial chest pain Additional Impression: Abdominal pain Scribe Attestation The scribe's documentation has been prepared under my direction and personally reviewed by me in its entirety. I confirm that the note above accurately reflects all work, treatment, procedures, and medical decision making performed by me. Departure Information Dispostion Being Evaluated By Hospitalist Referrals Julia Waller DO (PCP) Patient Instructions My [facility] Problem Qualifiers Additional Impression: Abdominal pain Abdominal location: unspecified location Qualified Codes: R10.9 - Unspecified abdominal pain
[2017-08-12] MEDS ORDERED: WARFARIN SOD 5 MG TAB PO SCH (21:00)
[2017-08-12] MEDS: METOPROLOL SUCC 50MG EXT REL TAB PO SCH (21:47)
[2017-08-12 21:49] VITALS: BP 119/79; PULSE 87
[2017-08-12 23:02] LABS: URINE APPEARANCE CLEAR (CLEAR); URINE BILIRUBIN NEG (NEG); URINE COLOR YELLOW; URINE NITRITE NEG (NEG); URINE PH 7.5 (4.5-7.5); URINE SPECIFIC GRAVITY 1.044 (1.000-1.030); UROBILINOGEN NEG (NEG); ZZUR CULT IF INDIC CLEAN CATCH NO
[2017-08-12 23:04] LABS: MANUAL MICROSCOPIC REQUIRED? NO; REVIEW REQ? NO
[2017-08-12 23:11] VITALS: BP 109/74; PULSE 80; TEMP 36.8; O2SAT 95
[2017-08-12] MEDS ORDERED: IV FLUIDS COMPLETED PRN (23:15)
[2017-08-12 23:35] VITALS: BP 109/74; PULSE 80; TEMP 36.8; O2SAT 95; Ht 160 cm; Wt 96.8 kg
[2017-08-13] MEDS ORDERED: PNEUMOCOCCAL ADMINISTRATION CHARGE ONE (01:45)
[2017-08-13] MEDS ORDERED: PNEUMOCOCCAL POLYSACCHARIDES 25 MCG/0.5 ML VIAL/SYR IM. ONE (01:45)
[2017-08-13 03:26] VITALS: BP 86/58; PULSE 72; TEMP 36.8; O2SAT 97
[2017-08-13 04:50] LABS: BASO % 0.6 %; BASO ABS # 0.06 K/uL (0-0.2); COMPLETE YES; EOS % 2.8 %; HEMATOCRIT 41.1 % (37-47); IG% 0.3 %; LYMPH % 28.6 %; LYMPH ABS # 2.72 K/uL (1.2-3.4); MEAN CELL VOLUME 89.9 fL (80-100); MEAN CORPUSCULAR HEMOGLOBIN 31.9 pg (25-34); MEAN CORPUSCULAR HGB CONC 35.5 g/dl (32-36); MEAN PLATELET VOLUME 10.3 fL (7.4-10.4); NEUT % 58.7 %; PLATELET COUNT 224 K/uL (130-400); RED BLOOD COUNT 4.57 M/uL (4.2-5.4); WHITE BLOOD COUNT 9.52 K/uL (4.8-10.8)
[2017-08-13 04:58] LABS: PROTHROMBIN TIME (PATIENT) 21.6 SECONDS (9.0-12.0)
[2017-08-13 05:06] LABS: BLOOD UREA NITROGEN 11 mg/dl (7-18); BUN/CREATININE RATIO 15.7 (10-20); CALCIUM 8.9 mg/dl (8.5-10.1); CARBON DIOXIDE 29 mmol/L (21-32); CHLORIDE 103 mmol/L (98-107); CREATININE 0.68 mg/dl (0.60-1.20); GLUCOSE 91 mg/dl (70-99); POTASSIUM 3.2 mmol/L (3.5-5.1); SODIUM 139 mmol/L (136-145)
[2017-08-13] MEDS ORDERED: LEVOTHYROXINE 112 MCG TAB PO SCH (06:30)
[2017-08-13 06:53] VITALS: BP 112/73; PULSE 72; TEMP 36.5; O2SAT 96
[2017-08-13] MEDS: METOPROLOL SUCC 50MG EXT REL TAB PO SCH (08:02)
[2017-08-13] MEDS ORDERED: ASPIRIN 81 MG ECTAB PO SCH (09:00)
[2017-08-13] MEDS ORDERED: TRIAMTERENE/HCTZ 37.5/25MG CAP PO SCH (09:00)
[2017-08-13 11:39] VITALS: BP 106/65; PULSE 77; TEMP 36.4; O2SAT 96
--- NOTE | 2017-08-13 12:46 | Surgery Progress Note ---
Surgery Progress Note Date of Service Aug 13, 2017. Subjective Patient examined at bedside this morning. Afebrile, vitals stable on room air, no acute events overnight. Denies pain this morning, feels well. Tolerating full liquid diet without abdominal pain, nausea or vomiting. Passing flatus, has not yet moved her bowels this admission. Ambulating and voiding without dififuclty. Would like to go home. Objective Vital Signs: Date Time Temp Pulse Resp B/P (MAP) Pulse Ox O2 Delivery O2 Flow Rate FiO2 08/13/17 11:39 36.4 77 16 106/65 (79) 96 Room Air 08/13/17 08:20 Room Air 08/13/17 06:53 36.5 72 16 112/73 (86) 96 Room Air 08/13/17 04:00 Room Air 08/13/17 03:26 36.8 72 18 86/58 (67) 97 Room Air 08/13/17 00:00 Room Air 08/12/17 23:35 36.8 80 18 109/74 95 Room Air 08/12/17 23:11 36.8 80 18 109/74 (86) 95 Room Air 08/12/17 21:49 87 119/79 (92) 08/12/17 19:24 36.8 87 16 144/83 (103) 97 Room Air 08/12/17 19:11 36.6 85 18 126/87 96 08/12/17 18:56 85 18 126/87 96 Room Air 08/12/17 16:49 87 16 96 08/12/17 16:44 87 16 96 08/12/17 16:39 90 14 96 08/12/17 16:34 93 11 97 08/12/17 16:29 95 16 97 08/12/17 16:24 98 16 97 08/12/17 16:19 105 13 96 08/12/17 16:14 90 13 96 08/12/17 16:09 99 14 97 08/12/17 16:04 90 11 97 08/12/17 16:04 82 08/12/17 16:02 95 20 147/80 97 Room Air 08/12/17 15:59 89 11 95 08/12/17 15:54 106 9 95 08/12/17 15:49 106 17 98 08/12/17 15:41 147/80 08/12/17 14:52 36.6 95 18 164/91 97 Room Air General Appearance: WD/WN, no apparent distress Head: normocephalic Neck: supple Respiratory/Chest: lungs clear, normal breath sounds, no respiratory distress Cardiovascular: regular rate, rhythm, no edema Abdomen: normal bowel sounds, non tender, non distended, soft, + hernia ( palpable umbilical hernia defect, partially reducible, no overlying skin changes , non tender to palpation) Laboratory Results: Results Past 24 Hours Test 08/12/17 15:18 08/12/17 21:13 08/12/17 22:00 08/13/17 04:42 Range/Units White Blood Count 9.95 9.52 4.8-10.8 K/uL Red Blood Count 4.99 4.57 4.2-5.4 M/uL Hemoglobin 15.9 14.6 12.0-16.0 g/dL Hematocrit 44.7 41.1 37-47 % Mean Corpuscular Volume 89.6 89.9 80-100 fL Mean Corpuscular Hemoglobin 31.9 31.9 25-34 pg Mean Corpuscular Hemoglobin Concent 35.6 35.5 32-36 g/dl Platelet Count 258 224 130-400 K/uL Mean Platelet Volume 10.7 10.3 7.4-10.4 fL Neutrophils (%) (Auto) 69.3 58.7 % Lymphocytes (%) (Auto) 22.7 28.6 % Monocytes (%) (Auto) 5.8 9.0 % Eosinophils (%) (Auto) 1.3 2.8 % Basophils (%) (Auto) 0.4 0.6 % Neutrophils # (Auto) 6.89 5.58 1.4-6.5 K/uL Lymphocytes # (Auto) 2.26 2.72 1.2-3.4 K/uL Monocytes # (Auto) 0.58 0.86 0.11-0.59 K/uL Eosinophils # (Auto) 0.13 0.27 0-0.5 K/uL Basophils # (Auto) 0.04 0.06 0-0.2 K/uL RDW Standard Deviation 44.8 45.0 36.4-46.3 fL RDW Coefficient of Variation 13.7 13.8 11.5-14.5 % Immature Granulocyte % (Auto) 0.5 0.3 % Immature Granulocyte # (Auto) 0.05 0.03 0.00-0.02 K/uL Prothrombin Time 21.4 21.6 9.0-12.0 SECONDS Prothromb Time International Ratio 1.9 2.0 0.9-1.1 Sodium Level 136 139 136-145 mmol/L Potassium Level 3.2 3.2 3.5-5.1 mmol/L Chloride Level 99 103 98-107 mmol/L Carbon Dioxide Level 27 29 21-32 mmol/L Anion Gap 10.0 7.0 3-11 mmol/L Blood Urea Nitrogen 11 11 7-18 mg/dl Creatinine 0.80 0.68 0.60-1.20 mg/dl Est Creatinine Clear Calc Drug Dose 78.7 92.8 ml/min Estimated GFR () 89.7 106.4 Estimated GFR (Non- 77.4 91.8 BUN/Creatinine Ratio 14.0 15.7 10-20 Random Glucose 97 91 70-99 mg/dl Calcium Level 9.7 8.9 8.5-10.1 mg/dl Total Bilirubin 0.7 0.2-1 mg/dl Direct Bilirubin 0.2 0-0.2 mg/dl Aspartate Amino Transf (AST/SGOT) 24 15-37 U/L Alanine Aminotransferase (ALT/SGPT) 32 12-78 U/L Alkaline Phosphatase 58 45-117 U/L Troponin I < 0.015 < 0.015 < 0.015 0-0.045 ng/ml Total Protein 8.1 6.4-8.2 gm/dl Albumin 3.9 3.4-5.0 gm/dl Lipase 99 73-393 U/L Urine Color YELLOW Urine Appearance CLEAR CLEAR Urine pH 7.5 4.5-7.5 Urine Specific [place] 1.044 1.000-1.030 Urine Protein NEG NEG Urine Glucose (UA) NEG NEG Urine Ketones NEG NEG Urine Occult Blood TRACE NEG Urine Nitrite NEG NEG Urine Bilirubin NEG NEG Urine Urobilinogen NEG NEG Urine Leukocyte Esterase SMALL NEG Urine WBC (Auto) 1-5 0-5 /hpf Urine RBC (Auto) 5-10 0-4 /hpf Urine Hyaline Casts (Auto) 0 0-5 /lpf Urine Epithelial Cells (Auto) 10-20 0-5 /lpf Urine Bacteria (Auto) NEG NEG Assessment & Plan Fariha Angeles is a 66 year old woman who has an umbilical hernia containing transverse colon. Hernia is not acute; it is no causing any obstruction, is reducible. No signs / symptoms of incarceration or infection. No change from prior CT scan from a few weeks ago. -No acute surgical intervention indicated at this time -May follow up in clinic for discussion of elective umbilical hernia repair - would need to stop coumadin / normalize INR prior to surgery -Patient agrees with the above plan -Discharge per primary team Lisbet Rodríguez MD 08/13/17
[2017-08-13] MEDS ORDERED: POTASSIUM CHLORIDE 20 MEQ TABCR PO ONE (14:00)
--- NOTE | 2017-08-13 14:36 | Discharge Instructions ---
Discharge Instructions Date of Service Aug 13, 2017. Admission Reason for Admission: Chest Pain Discharge Discharge Diagnosis / Problem: Umbilical hernia, chest pain Discharge Goals Goal(s): Decrease discomfort, Diagnostic testing, Therapeutic intervention Activity Recommendations Activity Limitations: resume your previous activity (as tolerated) . Instructions / Follow-Up Instructions / Follow-Up You were admitted to the hospital with chest and abdominal pain. A CT scan of the abdomen revealed that your umbilical hernia has been stable. Your work up for the chest pain included telemetry cardiac monitoring, serial cardiac enzymes and repeat EKGs. Your cardiac work up has returned normal. Your abdominal pain has also improved following a good bowel movement. General surgery evaluated you, and there was no need for acute surgery at this time. It is recommended that you follow up with surgery for an elective hernia repair at a later date. You are otherwise medically stable for discharge. Medications: *No changes have been made to your medications. Please continue to take your medications as prescribed. Follow up: *You will be scheduled to follow up with general surgery in a few weeks for elective umbilical hernia repair. *You will also be scheduled to follow up with your primary care provider 1 week following discharge. Please seek medical attention if you experience fevers, chills, sweats, dizziness, lightheadedness, loss of consciousness, chest pain, palpitations, shortness of breath, nausea, vomiting, worsening abdominal pain, numbness or tingling. Current Hospital Diet Patient's current hospital diet: AHA Diet (Heart Healthy), Full Liquid Diet Discharge Diet Recommended Diet: AHA Diet (Heart Healthy) Pending Studies Studies pending at discharge: no Medical Emergencies . Who to Call and When: Medical Emergencies: If at any time you feel your situation is an emergency, please call 911 immediately. . Non-Emergent Contact Non-Emergency issues call your: Primary Care Provider, Surgeon . Past History Medical & Surgical History: (1) Umbilical hernia (2) Chest pain . "Provider Documentation" section prepared by Jeana Bond. . VTE Core Measure Inpt VTE Proph given/why not?: Warfarin (Coumadin), T.EBlanquita Stockings, SCD's
[2017-08-13 14:48] VITALS: BP 106/65; PULSE 77; TEMP 36.4; O2SAT 96
--- NOTE | 2017-08-13 14:50 | Discharge Summary ---
Discharge Summary Date of Service Aug 13, 2017. (Jeana Bond .HEMANTH) Discharge Summary Admission Date: Aug 12, 2017 at 18:21 Discharge Date: Aug 13, 2017 Discharge Disposition: Home Principal Diagnosis: Chest pain, umbilical hernia Problems/Secondary Diagnoses: HTN HLD A-fib on chronic anticoagulation H/o Grave's disease s/p thyroidectomy, postsurgical hypothyroidism H/o uterine carcinoma s/p KHLOE (2001) Procedures: CT OF THE ABDOMEN AND PELVIS WITH CONTRAST CLINICAL HISTORY: Abdominal pain. COMPARISON STUDY: CT of the abdomen and pelvis August 07, 2017. TECHNIQUE: Following IV administration of 116 mL of Optiray-320, axial images of the abdomen and pelvis were obtained from the lung bases to the proximal femurs. Images were reviewed in the axial, sagittal, and coronal planes. IV contrast was administered without complication. A dose lowering technique was utilized adhering to the principles of ALARA. CT DOSE: 1281.59 mGy.cm FINDINGS: Fatty infiltration of the liver is noted. No hepatic lesions are present. There are multiple subcentimeter renal lesions which are too small to characterize. The spleen, adrenal glands and pancreas are unremarkable. There is mild gallbladder distention without pericholecystic infiltration. Note is made of an umbilical hernia which contains a portion of the transverse colon. There is no resultant bowel obstruction. Left colon diverticulosis is noted without evidence for acute diverticulitis. The appendix is not identified. There is no lymphadenopathy. No suspicious osseous lesion is present. IMPRESSION: 1. No bowel obstruction. Umbilical hernia which contains a portion of the transverse colon which is unchanged since prior CT. 2. Mild gallbladder distention without pericholecystic infiltration. 3. Fatty liver. CHEST ONE VIEW PORTABLE CLINICAL HISTORY: cp dyspnea COMPARISON STUDY: No previous studies for comparison. FINDINGS: The bones soft tissues and hemidiaphragms are normal. The cardiomediastinal silhouette is normal. The lungs are clear. The pulmonary vasculature is normal. IMPRESSION: Negative chest. (Jeana Bond PA-C) Medication Reconciliation Continued Medications: Ascorbic Acid (Vitamin C) 500 Mg Tab 1000 MG PO DAILY B-Complex Vitamins (Vitamin B Complex) 1 Tab Tab 1 TAB PO DAILY Cholecalciferol (Vitamin D3) 1,000 Inter.unit Tab 5000 TAB PO 5XWK Coenzyme Q10 (Ubidecarenone) (Co Q10) 50 Mg Cap 200 MG PO DAILY, CAP Collagen-Vitamin C (Collagen Plus Vitamin C) 1 Cap Cap 1 CAP PO DAILY Levothyroxine Sodium (Levothyroxine Sodium) 112 Mcg Tab 112 MCG PO DAILY Metoprolol Succinate (Toprol Xl) 50 Mg Tabcr 50 MG PO BID, #30 TAB Triamterene/Hctz (Maxzide 75MG/50MG) Tab 1 TAB PO QAM, TAB Warfarin Sod (Coumadin) 5 Mg Tab 5 MG PO DAILY Discharge Exam Patient reports feeling well. She did have a bowel movement this morning and her abdominal pain has since resolved except when the area is palpated. Her chest pain has also resolved. She denies any complaints now and is eager to be discharged. The patient denies fevers, chills, sweats, chest pain, palpitations , claudication, cough, wheezing, shortness of breath, nausea, vomiting, abdominal pain, dysuria, hematuria, urinary retention, paralysis, weakness, numbness and tingling. Review of Systems: Constitutional: No fever, No chills, No sweats Eyes: No worsening of vision, No eye pain, No diplopia ENT: No hearing loss, No sore throat, No trouble swallowing Respiratory: No cough, No wheezing, No shortness of breath Cardiovascular: No chest pain, No claudication, No palpitations Abdomen: No pain, No nausea, No vomiting Musculoskeletal: No joint pain, No muscle pain, No calf pain Genitourinary - Female: No dysuria, No urinary retention, No hematuria Neurologic: No paralysis, No weakness, No numbness/tingling Integumentary: No rash, No itch, No color change Physical Exam: General Appearance: WD/WN, no apparent distress, + obese Eyes: normal inspection, PERRL, EOMI ENT: normal ENT inspection, hearing grossly normal, pharynx normal Neck: supple, no JVD, trachea midline Respiratory/Chest: lungs clear, normal breath sounds, no respiratory distress Cardiovascular: no gallop, no murmur, + irregularly irregular (rate controlled) Abdomen / GI: normal bowel sounds, soft, + tenderness (umbilical area mildly TTP), + hernia (umbilical hernia) Extremities: normal inspection, no calf tenderness, no pedal edema Neurologic/Psychiatric: alert, normal mood/affect, oriented x 3 Skin: normal color, warm/dry, no rash (Bond, Jeana ., PA-C) Hospital Course 66 y/o female with a history of a-fib on chronic anticoagulation, HTN, HLD, h/o Grave's disease s/p thyroidectomy, postsurgical hypothyroidism, and h/o uterine carcinoma s/p KHLOE who presents to the ED on 08/12 with pain in the chest and abdomen. Chest pain, ACS r/o--resolved - Admit the patient to telemetry for observation. No acute events overnight. Pt in rate controlled a-fib with HR 60s-80s - Cardiac enzymes negative x 3 sets - Pt admits that her dog has been jumping up on her chest lately which may have contributed. Pain also seems more related to her abdominal pain - EKG reviewed showing atrial fibrillation, no signs of ST wave inversion or ischemia. Repeat EKG 08/13 no ischemic changes - Chest is nontender to palpation on exam - Nitroglycerin tabs when necessary Abdominal pain--resolved - CT abd/pelvis reviewed which showing an umbilical hernia which contains portion of the transverse colon. No obstruction. Fatty liver. Mild gallbladder distention without pericholecystic infiltration. - Tolerating full liquid for bowel rest- patient not complaining of nausea or vomiting, passing gas and had bowel movement today. Pt does not want to stay until dinner for regular diet - Gen. surgery consulted, appreciate recs: no indication for acute surgery. Should f/u as an outpatient for elective hernia repair Hypokalemia -Potassium 3.2 -Give KCl 40 mEq PO x 1 Atrial fibrillation on chronic AC--stable, rate controlled - Continue Coumadin 5 mg PO daily and Toprol 50 mg PO BID - INR therapeutic at 2.0 on 08/13 HTN -Continue Toprol as above, triamterene/HCTZ 75/50 1 tab PO qd H/o Grave's disease s/p thyroidectomy, postsurgical hypothyroidism -Continue Synthroid 112 mcg PO qd DVT prophylaxis -Coumadin -MARTIN Marie Code Status -Level I, FULL RESUSCITATION STATUS Total Time Spent: Greater than 30 minutes This includes examination of the patient, discharge planning, medication reconciliation, and communication with other providers. (Jeana Bond .HEMANTH) Discharge Instructions Please refer to the electronic Patient Visit Report (Discharge Instructions) for additional information. (Jeana Bond PA-C) Additional Copies To Julia Waller DO Reviewed: Pt Seen/Exam by Me (Beth Berman MD) History Physician Design Release Engineer Supervision Note: I interviewed and examined the patient. Discussed with HEATHER Bond and agree with findings and plan as documented in the note. Any exceptions or clarifications are listed here: Pt doing very well, no abd pain, no chest pain, no SOB. Dinorah diet. She reports that her chest pain was like heartburn and it all resolved when she moved her bowels more today and her abd pain went away at the same time Physical Exam: General Appearance: WD/WN, no apparent distress, + obese Eyes: normal inspection, PERRL, EOMI ENT: normal ENT inspection, hearing grossly normal, pharynx normal Neck: supple, no JVD, trachea midline Respiratory/Chest: lungs clear, normal breath sounds, no respiratory distress Cardiovascular: no gallop, no murmur, + irregularly irregular (rate controlled) Abdomen / GI: normal bowel sounds, soft, nontender, + hernia (umbilical hernia, easily reducible) Extremities: normal inspection, no calf tenderness, no pedal edema Neurologic/Psychiatric: alert, normal mood/affect, oriented x 3 Skin: normal color, warm/dry, no rash 66 yo female here with abd pain from hernia, now reducible, no need for urgent surgery, no cardiac issues, ACS ruled out. Chest pain likely GERD from ileus from hernia? Now all resolved. Plans for outpt repair of hernia underway. Stable for dc to home with close PCP f/u Documented By: Beth Berman (Beth Berman MD)
== END 2017-08-13 15:00 | disposition home or self-care (01) ==
LOC: C.EDB 14:45 → C.MED 18:21 → ENRESERV 18:59
PROVIDERS: ADMIT Hospitalist; ATTEND Hospitalist
DX: R07.9 Chest pain, unspecified (principal); K42.9 Umbilical hernia without obstruction or gangrene; E87.6 Hypokalemia; I10 Essential (primary) hypertension; E78.5 Hyperlipidemia, unspecified; I48.91 Unspecified atrial fibrillation; E89.0 Postprocedural hypothyroidism; E66.9 Obesity, unspecified; Z68.38 Body mass index [BMI] 38.0-38.9, adult; Z79.01 Long term (current) use of anticoagulants; Z90.710 Acquired absence of both cervix and uterus; Z85.42 Personal history of malignant neoplasm of other parts of uterus; Z90.49 Acquired absence of other specified parts of digestive tract

== ENCOUNTER → 2018-01-29 | Outpatient (CLI) | payer OTHER, MEDICARE ==
[~2018-01-29] MED LIST changes: +B-COTAB18 PO; -CLB200 PO; +COEN1CAP28 PO; +COLLCAP PO; -GLUC10007 PO; -HYDROCHLOROTHIAZIDE PO; +TRIA75TA53 PO; -TRIAMTERENE PO; -ULT50X PO; -ZCR20 PO
[2018-01-29 12:30] LABS: HEMATOCRIT 43.6 % (37-47); HEMOGLOBIN 14.9 g/dL (12.0-16.0); MEAN CELL VOLUME 91.8 fL (80-100); MEAN CORPUSCULAR HEMOGLOBIN 31.4 pg (25-34); MEAN CORPUSCULAR HGB CONC 34.2 g/dl (32-36); MEAN PLATELET VOLUME 10.8 fL (7.4-10.4); PLATELET COUNT 301 K/uL (130-400); RED CELL DISTRIBUTION WIDTH CV 13.6 % (11.5-14.5); RED CELL DISTRIBUTION WIDTH SD 45.6 fL (36.4-46.3); WHITE BLOOD COUNT 9.42 K/uL (4.8-10.8)
[2018-01-29 13:14] LABS: BLOOD UREA NITROGEN 15 mg/dl (7-18); CALCIUM 9.5 mg/dl (8.5-10.1); CARBON DIOXIDE 28 mmol/L (21-32); CREATININE 0.81 mg/dl (0.60-1.20); GLUCOSE 104 mg/dl (70-99); POTASSIUM 3.8 mmol/L (3.5-5.1); SODIUM 135 mmol/L (136-145)
[2018-01-29 13:27] LABS: CHOLESTEROL 250 mg/dl (0-200); LDL CHOLESTEROL CALCULATED 156 mg/dl
== END | disposition home or self-care (01) ==
LOC: C.LABPBG 08:34
PROVIDERS: ATTEND Family Medicine
DX: I10 Essential (primary) hypertension (principal); E78.5 Hyperlipidemia, unspecified; E03.9 Hypothyroidism, unspecified; I48.91 Unspecified atrial fibrillation

== ENCOUNTER 2021-10-02 23:49 | Inpatient (IN) ==
[2021-10-03] MEDS ORDERED: MoRPHine SULFATE 4 MG/ML 1 ML CARP\\VIAL IV STA (00:22)
[2021-10-03] MEDS ORDERED: ONDANSETRON INJ 2 MG/ML 2 ML VIAL IV STA (00:22)
[2021-10-03] MEDS: SODIUM CHLORIDE 0.9% 1000ML 1,000 ML IV SCH ×2 (00:45→09:04)
[2021-10-03 00:46] LABS: Hematocrit (blood only) 42.8 % (37-47); Hemoglobin 14.8 g/dL (12.0-16.0); Mean Corpuscular Hemoglobin 31.3 pg (25-34); Mean Corpuscular Hgb Conc 34.6 g/dL (32-36); Mean Corpuscular Volume 90.5 fL (80-100); Mean Platelet Volume 10.3 fL (7.4-10.4); Platelet Count 227 K/uL (130-400); RDW Coefficient of Variation 13.7 % (11.5-14.5); RDW Standard Deviation 45.3 fL (36.4-46.3); Red Blood Count 4.73 M/uL (4.2-5.4); White Blood Count 22.38 K/uL (4.8-10.8)
[2021-10-03 00:53] LABS: Prothrombin Time 19.2 Seconds (9.0-12.0)
[2021-10-03 01:09] LABS: Alanine Aminotransferase 99 U/L (12-78); Albumin Level 3.4 gm/dl (3.4-5.0); Aspartate Aminotransferase 198 U/L (15-37); BUN Creatinine Ratio 13.9 (10-20); Blood Urea Nitrogen 13 mg/dl (7-18); Calcium 9.1 mg/dl (8.5-10.1); Carbon Dioxide 22 mmol/L (21-32); Chloride 97 mmol/L (98-107); Est GFR (African American) 69.9 ml/min; Est GFR (Non-African American) 60.3 ml/min; Glucose 106 mg/dl (70-99); Lipase 82 U/L (73-393); Potassium 2.8 mmol/L (3.5-5.1); Sodium 133 mmol/L (136-145)
[2021-10-03 01:13] LABS: Albumin Globulin Ratio 0.8 (0.9-2); Alkaline Phosphatase 76 U/L (45-117); Bilirubin,Total 2.4 mg/dl (0.2-1); Globulin 4.1 gm/dl (2.5-4.0); Total Protein 7.5 gm/dl (6.4-8.2); Troponin I < 0.015 ng/ml (0-0.045)
[2021-10-03] MEDS ORDERED: PIPERACILLIN/TAZOBACTAM 4.5 GM/120 ML BAG IV ONE (01:17)
[2021-10-03] MEDS ORDERED: PIPERACILL/TAZOBAC CONSULT ACTIVE PRN ×2 (01:17→09:48)
--- NOTE | 2021-10-03 01:49 | Emergency Department Note ---
History of Present Illness General Chief complaint: Abdominal Pain Stated complaint: ABDOMINAL PAIN Time Seen by Provider: 10/03/21 00:13 Source: patient Mode of arrival: ambulatory Limitations: no limitations History of Present Illness Provider complaint: Abdominal pain Onset (ago): day(s) 1 Radiation: back Severity: moderate Pain Consistency: + constant Maximum Pain Intensity: 7 Associated symptoms: + fever/chills, + loss of appetite and + nausea/vomiting; no chest pain or no shortness of breath Treatments prior to arrival: other This is a 70-year-old female presents the emergency department complaining of abdominal pain. Patient states after eating chips and salsa at around 2 PM she began having upper abdominal pain located on the right. She states this is similar to prior episodes that she feels are related to her gallbladder. Pat lan states she has previously had testing of her gallbladder and was told she had sludge. Patient states the intermittent episodes typically have self resolved although this 1 has been persistent. She states tonight then she developed an episode of chills and was concerned for possible infection so she came to the emergency room. She states she did attempt to take a pain pill she has at home, however this did not provide any relief. She states she was nauseated however did not vomit. She denies overt fevers. Denies any recent change in bowel or bladder function. States the pain does seem to radiate from the right upper quadrant around her right flank into the right back, and mildly feels as though it is coming up under the right shoulder. She denies chest pain or trouble breathing. States she does have an umbilical hernia. Patient does use blood thinners due to history of atrial fibrillation. Pt seen during a time of high acuity and national emergency pandemic while wearing PPE. Home Medications Medication Instructions Recorded Confirmed Type ascorbic acid (vitamin C) 1,000 mg 1 gm PO DAILY tab 10/04/19 10/03/21 History tablet coenzyme Q10 200 mg capsule 200 mg PO Q OTHER DAY 10/04/19 10/03/21 History vitamin B complex 1 tab PO DAILY 01/22/20 10/03/21 History potassium chloride 20 mEq 20 meq PO DAILY #90 tab 12/04/20 10/03/21 Rx tablet,extended release(part/cryst) (Klor-Con M) clindamycin phosphate 1 % topical 1 applic TOPICAL DAILY PRN #60 g 04/24/21 10/03/21 Rx gel levothyroxine 112 mcg tablet 112 mcg PO DAILY #90 tab 07/10/21 10/03/21 Rx warfarin 5 mg tablet 5 mg PO .COMPLEX #90 tab 07/26/21 10/03/21 Rx metoprolol tartrate 50 mg tablet 50 mg PO BID #180 tab 07/27/21 10/03/21 Rx triamterene 75 1 tab PO DAILY #90 tab 07/27/21 10/03/21 Rx mg-hydrochlorothiazide 50 mg tablet Allergies Allergy/AdvReac Type Severity Reaction Status Date / Time tetanus toxoid, adsorbed Allergy Mild LOCAL Verified 10/03/21 01:11 REACTION Past Med/Surg History Medical History (Updated 10/04/21 @ 03:00 by Mary Torres DO) Atrial fibrillation Dyslipidemia Hypertension Hypothyroidism Migraine Osteoarthritis Umbilical hernia Vertigo Surgical History H/O wisdom tooth extraction S/P hysterectomy S/P thyroidectomy S/P TKR (total knee replacement) (11/08/14) Left S/P tonsillectomy Family History Grandmother (Maternal) Myocardial infarction Grandfather (Paternal) Myocardial infarction Uncle Esophageal cancer Mother Atrial fibrillation Hypertension Osteoarthritis Kidney disease Aunt Breast cancer Colorectal cancer Denies family history of Ovarian cancer Prostate cancer Lung cancer Social History Smoking Status: Never smoker Second Hand Exposure: Yes; Hx Alcohol Use: No Hx Substance Use: No Preferred Language: Romansh Communication Ability: Effective Visual Impairment: No Limitations Hearing Ability: Normal Brooch Maker Novelty Required: No Beliefs That Will Affect Care: None marital status: Single Current Living Situation: Alone current occupational status: retired current occupation: nurse Feels Safe at Home: Yes Childhood Exposure to Second-Hand Smoke: Yes Diet Comment: regular caffeine: Yes (coffee tea) during the past year weight has: remained stable Dental Care, Regularly: Yes Physical Activity Frequency: 3-4 Times per Week Physical Activity Frequency Comment: general house work, exercise for legs Seatbelt Use: always Sunscreen Use: No Review of Systems A total of 10 systems reviewed and were otherwise negative All systems reviewed & are unremarkable except as noted in HPI & below Physical Exam Vital Signs Vital Signs - 24 hr 10/03/21 03:53 10/03/21 04:00 Pulse Rate from SpO2 Sensor 105 H 106 H Respiratory Rate 18 Blood Pressure 135/71 Blood Pressure Mean 92 Pulse Oximetry 96 94 GENERAL: alert, unwell and uncomfortable appearing, well nourished, mild distress, non-toxic, BMI>41 EYE EXAM: normal conjunctiva, PERRL and EOM's grossly intact OROPHARYNX: no exudate, no erythema, lips, buccal mucosa, and tongue normal and mucous membranes are moist NECK: supple, no nuchal rigidity, no adenopathy, non-tender LUNGS: Clear to auscultation. Normal chest wall mechanics, no w/r/r HEART: no murmurs, S1 normal and S2 normal ABDOMEN: abdomen soft, tenderness with palpation to the epigastric and right upper quadrant, normo-active bowel sounds, no masses, no rebound or guarding. BACK: Back is symmetrical on inspection and there is no deformity, no midline tenderness, no CVA tenderness. SKIN: no rashes and no bruising UPPER EXTREMITIES: upper extremities are grossly normal. FROM, nml pulses b/l. LOWER EXTREMITIES: No pitting edema. FROM, nml pulses b/l. NEURO EXAM: Normal sensorium, cranial nerves II-XII grossly intact, normal speech, no gross weakness of arms, no gross weakness of legs. Gross sensation intact. Course Course 0335: Discussed with Dr. Carl. 0355: Discussed with Dr. Hickman. Administered Medications Piperacillin Sod/Tazobactam (Sod 4.5 gm/ Dextrose) 120 mls @ 30 mls/hr IV Q8H [facility]; Protocol Stop: 10/13/21 15:59 Last Admin: 10/04/21 00:59 Dose: 30 mls/hr Documented by: [id number] Infusion: 10/03/21 22:48 Dose: 0 mls/hr Documented by: [id number] Admin: 10/03/21 18:46 Dose: 30 mls/hr Documented by: [id number] Levothyroxine Sodium (Levothyroxine Sodium 112 Mcg Tablet) 112 mcg PO DAILYBB [facility] Stop: 11/02/21 09:47 Last Admin: 10/03/21 12:30 Dose: 112 mcg Documented by: [id number] Metoprolol Tartrate (Metoprolol Tartrate 50 Mg Tab) 50 mg PO BID DANIELE Stop: 11/02/21 09:47 Last Admin: 10/03/21 20:35 Dose: 50 mg Documented by: [id number] Admin: 10/03/21 12:30 Dose: 50 mg Documented by: [id number] Discontinued Medications Sodium Chloride (Nss 1000ml) 1,000 mls @ 125 mls/hr IV .Q8H DANIELE Stop: 11/02/21 00:29 Last Infusion: 10/03/21 12:11 Dose: 0 mls/hr Documented by: [id number] Admin: 10/03/21 09:04 Dose: 125 mls/hr Documented by: [id number] Infusion: 10/03/21 09:04 Dose: 0 mls/hr Documented by: [id number] Admin: 10/03/21 00:45 Dose: 125 mls/hr Documented by: [id number] Piperacillin Sod/Tazobactam Sod (Zosyn) 4.5 gm in 120 mls @ 240 mls/hr IV NOW ONE Stop: 10/03/21 01:46 Last Infusion: 10/03/21 03:10 Dose: 0 mls/hr Documented by: [id number] Admin: 10/03/21 02:37 Dose: 240 mls/hr Documented by: [id number] Phytonadione 10 mg/ Sodium (Chloride) 51 mls @ 102 mls/hr IV ONE ONE Stop: 10/03/21 08:59 Last Infusion: 10/03/21 12:11 Dose: 0 mls/hr Documented by: [id number] Admin: 10/03/21 09:02 Dose: 102 mls/hr Documented by: [id number] Piperacillin Sod/Tazobactam (Sod 4.5 gm/ Dextrose) 120 mls @ 240 mls/hr IV ONE ONE; Protocol Stop: 10/03/21 12:29 Last Admin: 10/03/21 18:13 Dose: Not Given Documented by: [id number] Lactated Ringer's (Lr) 1,000 mls @ 125 mls/hr IV .Q8H [facility] Stop: 10/04/21 01:47 Last Infusion: 10/04/21 01:51 Dose: 0 mls/hr Documented by: [id number] Admin: 10/03/21 19:09 Dose: 125 mls/hr Documented by: [id number] Infusion: 10/03/21 19:09 Dose: 125 mls/hr Documented by: [id number] Admin: 10/03/21 12:10 Dose: 125 mls/hr Documented by: [id number] Potassium Chloride (K Talat / Wtr) 10 meq in 100 mls @ 100 mls/hr IV Q1H STA Stop: 10/03/21 11:20 Last Infusion: 10/03/21 12:11 Dose: 0 mls/hr Documented by: [id number] Admin: 10/03/21 10:30 Dose: 100 mls/hr Documented by: [id number] Potassium Chloride (K Talat / Wtr) 10 meq in 100 mls @ 100 mls/hr IV Q1H DANIELE Stop: 10/03/21 14:14 Last Admin: 10/03/21 18:51 Dose: Not Given Documented by: [id number] Admin: 10/03/21 18:50 Dose: Not Given Documented by: [id number] Infusion: 10/03/21 17:50 Dose: 0 mls/hr Documented by: [id number] Admin: 10/03/21 11:30 Dose: 75 mls/hr Documented by: [id number] Indomethacin (Indomethacin 50 Mg Supp) Confirm Administered Dose 100 mg TX .STK- MED ONE Stop: 10/03/21 14:12 Last Admin: 10/03/21 15:01 Dose: Not Given Documented by: [id number] Metoprolol Tartrate (Metoprolol Tartrate 1 Mg/Ml Vial) 5 mg IV NOW STA Stop: 10/03/21 08:16 Last Admin: 10/03/21 08:28 Dose: 5 mg Documented by: [id number] Metoprolol Tartrate (Metoprolol Tartrate 50 Mg Tab) 50 mg PO NOW STA Stop: 10/03/21 08:17 Last Admin: 10/03/21 08:28 Dose: 50 mg Documented by: [id number] Metoprolol Tartrate (Metoprolol Tartrate 50 Mg Tab) Confirm Administered Dose 50 mg .ROUTE .STK-MED ONE Stop: 10/03/21 08:21 Last Admin: 10/03/21 08:28 Dose: Not Given Documented by: [id number] Metoprolol Tartrate (Metoprolol Tartrate 1 Mg/Ml Vial) Confirm Administered Dose 5 mg IV .STK-MED ONE Stop: 10/03/21 08:21 Last Admin: 10/03/21 08:28 Dose: Not Given Documented by: [id number] Miscellaneous (Patient's Height And/Or Weight Needed) 1 ea N/A Q2H DANIELE Stop: 11/02/21 11:59 Last Admin: 10/03/21 18:52 Dose: 1 ea Documented by: [id number] Admin: 10/03/21 15:19 Dose: 1 ea Documented by: [id number] Morphine Sulfate (Morphine Sulfate 4 Mg/Ml 1 Ml Carp\Vial) 4 mg IV NOW STA Stop: 10/03/21 00:23 Last Admin: 10/03/21 00:45 Dose: 4 mg Documented by: [id number] Ondansetron HCl (Ondansetron Inj 2 Mg/Ml 2 Ml Vial) 4 mg IV NOW STA Stop: 10/03/21 00:23 Last Admin: 10/03/21 00:45 Dose: 4 mg Documented by: [id number] Potassium Chloride (Potassium Chloride Crtab 20 Meq Tabcr) 40 meq PO NOW STA Stop: 10/03/21 03:25 Last Admin: 10/03/21 03:40 Dose: 40 meq Documented by: [id number] Potassium Chloride (Potassium Chloride Crtab 20 Meq Tabcr) 40 meq PO NOW STA Stop: 10/03/21 04:04 Last Admin: 10/03/21 10:31 Dose: Not Given Documented by: [id number] Potassium Chloride (Potassium Chloride 10 Meq / 100ml Wtr) Confirm Administered Dose 10 meq IV .STK-MED ONE Stop: 10/03/21 10:24 Last Admin: 10/03/21 10:46 Dose: Not Given Documented by: [id number] Medical Decision Making Differential Diagnosis Differential diagnoses includes but is not limited to gastritis, peptic ulcer disease, GERD, gallbladder disease, pancreatitis, small bowel obstruction, acute coronary syndrome, pericarditis, ischemic bowel, irritable bowel disease, irritable bowel syndrome, appendicitis, diverticulitis, malignancy, hernia, urinary tract infection, torsion, [/ectopic (if female)], perforation, trauma, infectious. Medical Records Attestation: I reviewed the patient's medical records. Home Medications Current Medication List: was personally reviewed by me Laboratory Data Attestation: I reviewed the patient's lab results. Result diagrams: 10/03/21 00:32 10/03/21 17:02 Lab Results 10/03/21 10/03/2121 Range/Units 00:32 00:32 00:32 WBC 22.38 H (4.8-10.8) K/uL RBC 4.73 (4.2-5.4) M/uL Hgb 14.8 (12.0-16.0) g/dL Hct 42.8 (37-47) % MCV 90.5 (80-100) fL MCH 31.3 (25-34) pg MCHC 34.6 (32-36) g/dL RDW Std Deviation 45.3 (36.4-46.3) fL RDW Coeff of [place] 13.7 (11.5-14.5) % Plt Count 227 (130-400) K/uL MPV 10.3 (7.4-10.4) fL Immature Gran % (Auto) 0.4 % Neut % (Auto) 95.0 % Lymph % (Auto) 2.5 % [place] % (Auto) 2.1 % Eos % (Auto) 0.0 % Baso % (Auto) 0.0 % Neut # (Auto) 21.25 H (1.4-6.5) K/uL Lymph # (Auto) 0.56 L (1.2-3.4) K/uL [place] # (Auto) 0.48 (0.11-0.59) K/uL Eos # (Auto) 0.00 (0-0.5) K/uL Baso # (Auto) 0.01 (0-0.2) K/uL Immature Gran # (Auto) 0.08 H (0.00-0.02) K/uL PT 19.2 H (9.0-12.0) Seconds INR 2.0 H (0.9-1.1) Sodium 133 L (136-145) mmol/L Potassium 2.8 L (3.5-5.1) mmol/L Chloride 97 L (98-107) mmol/L Carbon Dioxide 22 (21-32) mmol/L Anion Gap 14.0 H (3-11) BUN 13 (7-18) mg/dl Creatinine 0.96 (0.6-1.2) mg/dl Est Cr Clr Drug Dosing Not Reportable Est GFR ( Amer) 69.9 ml/min Est GFR (Non-Af Amer) 60.3 ml/min BUN/Creatinine Ratio 13.9 (10-20) Glucose 106 H (70-99) mg/dl Calcium 9.1 (8.5-10.1) mg/dl Total Bilirubin 2.4 H (0.2-1) mg/dl AST 198 H (15-37) U/L ALT 99 H (12-78) U/L Alkaline Phosphatase 76 (45-117) U/L Troponin I < 0.015 (0-0.045) ng/ml Total Protein 7.5 (6.4-8.2) gm/dl Albumin 3.4 (3.4-5.0) gm/dl Globulin 4.1 H (2.5-4.0) gm/dl Albumin/Globulin Ratio 0.8 L (0.9-2) Lipase 82 (73-393) U/L COVID-19 Eval Order SARS-CoV-2 (PCR) (Negative) 10/03/21 10/03/21 Range/Units 01:45 01:45 WBC (4.8-10.8) K/uL RBC (4.2-5.4) M/uL Hgb (12.0-16.0) g/dL Hct (37-47) % MCV (80-100) fL MCH (25-34) pg MCHC (32-36) g/dL RDW Std Deviation (36.4-46.3) fL RDW Coeff of L[place]ette (11.5-14.5) % Plt Count (130-400) K/uL MPV (7.4-10.4) fL Immature Gran % (Auto) % Neut % (Auto) % Lymph % (Auto) % [place] % (Auto) % Eos % (Auto) % Baso % (Auto) % Neut # (Auto) (1.4-6.5) K/uL Lymph # (Auto) (1.2-3.4) K/uL [place] # (Auto) (0.11-0.59) K/uL Eos # (Auto) (0-0.5) K/uL Baso # (Auto) (0-0.2) K/uL Immature Gran # (Auto) (0.00-0.02) K/uL PT (9.0-12.0) Seconds INR (0.9-1.1) Sodium (136-145) mmol/L Potassium (3.5-5.1) mmol/L Chloride (98-107) mmol/L Carbon Dioxide (21-32) mmol/L Anion Gap (3-11) BUN (7-18) mg/dl Creatinine (0.6-1.2) mg/dl Est Cr Clr Drug Dosing Est GFR ( Amer) ml/min Est GFR (Non-Af Amer) ml/min BUN/Creatinine Ratio (10-20) Glucose (70-99) mg/dl Calcium (8.5-10.1) mg/dl Total Bilirubin (0.2-1) mg/dl AST (15-37) U/L ALT (12-78) U/L Alkaline Phosphatase (45-117) U/L Troponin I (0-0.045) ng/ml Total Protein (6.4-8.2) gm/dl Albumin (3.4-5.0) gm/dl Globulin (2.5-4.0) gm/dl Albumin/Globulin Ratio (0.9-2) Lipase (73-393) U/L COVID-19 Eval Order Covid19 [address] [facility] SARS-CoV-2 (PCR) NEGATIVE (Negative) Imaging Data Radiologist's Impression: Endo Retro Cholangiopancreatogram 10/03/21 00:00 FL ERCP biliary ductal CLINICAL HISTORY: Fluoroscopic assistance for ERCP.Right upper quadrant pain. COMPARISON STUDY: Abdominal ultrasound 10/03/2021. FLUOROSCOPY TIME: 38 seconds. FINDINGS: 5 fluoroscopic spot images of the right or quadrant demonstrate cannulation of the ampulla with contrast injected into the common bile duct. A balloon sweep was performed. This is followed by placement of a common bile duct stent which appears in good position. IMPRESSION: Fluoroscopic assistance provided for ERCP as described above. ACT 112: Negative or not required by law. Electronically signed by: Nabil La M.D. 10/03/2021 5:06 PM US RUQ: Comparison to CT scan from August 12, 2017. The liver is mildly enlarged and fatty infiltrated measuring 18.2 cm. No focal liver lesion is seen. The portal vein is patent with normal directional flow. The common bile duct is upper normal in size measuring 8 mm. No choledochol ithiasis is seen. The gallbladder is fully distended with a 9 mm shadowing stone within it dependently. The wall thickness is normal measuring less than 2 mm. There is trace amount of pericholecystic fluid. Sonographic Campos sign cannot be assessed due to recent pain medication administration. The right kidney is unremarkable. No hydronephrosis is seen. Radiologist: Logan Hickman MD ECG Data Attestation: I personally reviewed and interpreted this ECG as follows: Indication: + abdominal pain Rate (beats per minute): 105 Rhythm: + atrial fibrillation ECG Intervals/blocks: + Normal QRS and + Normal QT ECG [place]: + Normal ECG ST segments: + Nonspecific ST abnormalities MDM Narrative This is a 70-year-old female who presents with worsening upper abdominal pain. Patient states she has had several episodes for many years, however they typic ally will go away. Tonight with pain medication she does keep at home symptoms is not resolving more persistent and worsening so she presented to the emergency room. Labs drawn and sent, patient found to have significant leukocytosis of 22, as well as elevated LFTs with the exception of her alkaline phosphatase. Patient given IV Zosyn while awaiting ultrasound. Patient is anticoagulated due to history of atrial fibrillation and INR was therapeutic at 2.0. Due to patient's description and location of pain, patient was sent for ultrasound which was suggestive of acute cholecystitis. Case discussed with on-call general surgery and then with the hospitalist for admission and medical cleara nce. Patient given medication for pain and nausea and was kept on IV fluids. Patient otherwise kept n.p.o. until additional evaluation. No evidence at this time of bacteremia/sepsis, no evidence for a sending cholangitis. I do not suspect perforation, GI bleed, or colitis. An order was placed for continuous cardiac monitoring. The monitor shows a rate of _92_ with _atrial fibrillation_ rhythm. Impression & Plan Abdominal pain, Acute cholecystitis, Atrial fibrillation Discharge Plan Visit Data Chief Complaint: Abdominal Pain Stated Complaint: ABDOMINAL PAIN ED Provider: Mary Torres Discharge Problem: Abdominal pain, Acute cholecystitis, Atrial fibrillation Patient Disposition: Admitted As Inpatient Condition: Good Discharge Instructions Interventions: ED Discharge Assessment Last Done: 10/03/21 06:00 Discharge Problem: Abdominal pain Qualifiers: Abdominal location: upper abdomen, unspecified Qualified Code(s): R10.10 - Upper abdominal pain, unspecified Atrial fibrillation Qualifiers: Atrial fibrillation type: unspecified chronic Qualified Code(s): I48.20 - Chronic atrial fibrillation, unspecified
[2021-10-03 01:58] LABS: Basophils # (auto) 0.01 K/uL (0-0.2); Immature Granulocytes # (auto) 0.08 K/uL (0.00-0.02); Immature Granulocytes % (auto) 0.4 %; Lymphocytes # (auto) 0.56 K/uL (1.2-3.4); Lymphocytes % (auto) 2.5 %; Monocytes # (auto) 0.48 K/uL (0.11-0.59); Monocytes % (auto) 2.1 %; Neutrophils # (auto) 21.25 K/uL (1.4-6.5)
[2021-10-03] MEDS ORDERED: POTASSIUM CHLORIDE CRTAB 20 MEQ TABCR PO STA ×2 (03:24→04:03)
--- NOTE | 2021-10-03 04:21 | History & Physical Report ---
Date of Service October 03, 2021 Assessment & Plan (1) Acute cholecystitis: Plan: 70yo female with history of AF on Coumadin anticoagulation, HTN, HLP presenting with RUQ pain which started this AM. Pain similar to prior biliary pain. She is afebrile, HD stable, non-toxic in appearance. Pain has resolved with Morphine. Labs significant for neutrophil predominant leukocytosis with WBC=22.38 with bands. Elevation of EER=659, ALT=99 and Tbili=2.4. RUQ US with distended gallbladder with dependent 9mm stone and mild pericholecystic fluid. -Admit to medical -Keep NPO -Zosyn 3.375gm IV q 8 -Tylenol PRN pain or fever -Zofran PRN nausea -Morphine as needed for pain - 2mg IV q 4 hours - adjust as needed -Bowel regimen with colace and Miralax PRN -General Surgery consultation appreciated -Repeat CBC, LFTs and chemistry in AM -Will defer additional imaging for now (2) Hypokalemia: Plan: K=2.8. Patient is on daily Triamterene/HCTZ with K supplementation outpatient -Will hold Triamterene/HCTZ -K repletion with 80mEq -Repeat chemistry panel in AM (3) Atrial fibrillation: Plan: Mildly elevated HR in setting of pain and possible infection. Anticoagulated on Coumadin with appropriate INR of 2 -Continue Metoprolol 50mg po BID -Hold Coumadin for possible cholecystectomy -Monitor INR daily (4) Hypertension: Plan: Blood pressure well controlled -Continue metoprolol 50mg po BID -Hold Triamterene-HCTZ for now -Continue to monitor (5) Hypothyroidism: Plan: Chronic -Continue Synthroid 112 mcg po daily Plan: F/E/N - LR at 125mL/hr x 2 liters, K repletion as above, NPO except chips/sips/meds for now Ppx - SCDs Code - DNR/DNI per discussion with patient DIspo - Admit to medical History of Present Illness Chief Complaint: RUQ pain Primary Care Provider: DO Fariha Cheung Karthik is a 70yo female with history of AF on Coumadin anticoagulation, HTN, HLP and Hypothyroidism presenting with RUQ pain. Patient reports longstanding history of gallbladder pain dating back to her teenage years. Her episodes are usually brief and self-limiting. This afternoon around 1400 she developed acute RUQ discomfort after eating chips and salsa. The pain was severe, stabbing in nature and radiating into epigastrium and back. She had some associated nausea without vomiting and chills as well. Pain persisted longer than usual which prompted her to come to the ER. Last episode of biliary pain was January 2021 Pain relieved with morphine. Now with dull aching pain in RUQ, much improved No additional complaints at this time In the ER patient afebrile, HD stable, nontoxic in appearance. ER Course: Morphine, Zosyn, KCl, NSS Allergies Allergy/AdvReac Type Severity Reaction Status Date / Time tetanus toxoid, adsorbed Allergy Mild LOCAL Verified 10/03/21 01:11 REACTION Home Medications Medication Instructions Recorded Confirmed Type ascorbic acid (vitamin C) 1,000 mg 1 gm PO DAILY tab 10/04/19 10/03/21 History tablet coenzyme Q10 200 mg capsule 200 mg PO Q OTHER DAY 10/04/19 10/03/21 History vitamin B complex 1 tab PO DAILY 01/22/20 10/03/21 History potassium chloride 20 mEq 20 meq PO DAILY #90 tab 12/04/20 10/03/21 Rx tablet,extended release(part/cryst) (Klor-Con M) clindamycin phosphate 1 % topical 1 applic TOPICAL DAILY PRN #60 g 04/24/21 10/03/21 Rx gel levothyroxine 112 mcg tablet 112 mcg PO DAILY #90 tab 07/10/21 10/03/21 Rx warfarin 5 mg tablet 5 mg PO .COMPLEX #90 tab 07/26/21 10/03/21 Rx metoprolol tartrate 50 mg tablet 50 mg PO BID #180 tab 07/27/21 10/03/21 Rx triamterene 75 1 tab PO DAILY #90 tab 07/27/21 10/03/21 Rx mg-hydrochlorothiazide 50 mg tablet Past Med/Surg History Medical History (Updated 10/03/21 @ 04:17 by Leesa Hickman DO) Atrial fibrillation Dyslipidemia Hypertension Hypothyroidism Migraine Osteoarthritis Umbilical hernia Vertigo Surgical History H/O wisdom tooth extraction S/P hysterectomy S/P thyroidectomy S/P TKR (total knee replacement) (11/08/14) Left S/P tonsillectomy Family History Grandmother (Maternal) Myocardial infarction Grandfather (Paternal) Myocardial infarction Uncle Esophageal cancer Mother Atrial fibrillation Hypertension Osteoarthritis Kidney disease Aunt Breast cancer Colorectal cancer Denies family history of Ovarian cancer Prostate cancer Lung cancer Social History Smoking Status: Never smoker Second Hand Exposure: Yes; Hx Alcohol Use: No Hx Substance Use: No Preferred Language: Bengali Communication Ability: Effective Visual Impairment: No Limitations Hearing Ability: Normal [employer] Bonder Required: No Beliefs That Will Affect Care: None marital status: Single Current Living Situation: Alone current occupational status: retired current occupation: nurse Feels Safe at Home: Yes Childhood Exposure to Second-Hand Smoke: Yes Diet Comment: regular caffeine: Yes (coffee tea) during the past year weight has: remained stable Dental Care, Regularly: Yes Physical Activity Frequency: 3-4 Times per Week Physical Activity Frequency Comment: general house work, exercise for legs Seatbelt Use: always Sunscreen Use: No Review of Systems Review of Systems: All systems reviewed & are unremarkable except as noted in HPI & below Physical Exam Physical Exam: General: patient resting comfortably, NAD, non-toxic in appearance, AA&O x 4 Skin: warm, dry, intact, no rashes or lesions HEENT: NC/AT, PERRL, EOMI, anicteric sclera, conjunctiva without injection, external ear normal to inspection and nontender, nares patent, moist mucus membranes, dentition intact, no oropharyngeal lesions, neck supple, trachea midline, no LAD, no thyromegaly, no JVD Heart: +S1/S2, irregularly irregular, no m/r/g Lungs: equal air entry bilaterally, no rales/rhonchi/wheezes Abd: +BS, soft, mildly tender in RUQ with no rebound/guarding/peritoneal signs, no masses/organomegaly/ascites Ext: warm, 2+ pulses in UE/LE bilaterally, no clubbing/cyanosis or edema Neuro: nonfocal, patient AA&O x 4, speech intact, no facial droop, moving all extremities on command with equal strength 5/5 Results & Data Results & Data ([facility]) Vital Signs (Past 12 Hours) Vital Signs Temp Pulse Resp BP Pulse Ox 10/03/21 03:53 18 135/71 96 10/03/21 01:30 95 H 18 102/58 L 92 10/03/21 01:00 91 H 22 97 10/03/21 00:41 104 H 22 109/61 95 10/02/21 23:56 36.5 C 107 H 20 103/62 96 Laboratory Results Laboratory Results WBC 22.38 K/uL (4.8-10.8) H 10/03/21 00:32 RBC 4.73 M/uL (4.2-5.4) 10/03/21 00:32 Hgb 14.8 g/dL (12.0-16.0) 10/03/21 00:32 Hct 42.8 % (37-47) 10/03/21 00:32 MCV 90.5 fL (80-100) 10/03/21 00:32 MCH 31.3 pg (25-34) 10/03/21 00:32 MCHC 34.6 g/dL (32-36) 10/03/21 00:32 RDW Std Deviation 45.3 fL (36.4-46.3) 10/03/21 00:32 RDW Coeff of Linnette 13.7 % (11.5-14.5) 10/03/21 00:32 Plt Count 227 K/uL (130-400) 10/03/21 00:32 MPV 10.3 fL (7.4-10.4) 10/03/21 00:32 Immature Gran % (Auto) 0.4 % 10/03/21 00:32 Neut % (Auto) 95.0 % 10/03/21 00:32 Lymph % (Auto) 2.5 % 10/03/21 00:32 [place] % (Auto) 2.1 % 10/03/21 00:32 Eos % (Auto) 0.0 % 10/03/21 00:32 Baso % (Auto) 0.0 % 10/03/21 00:32 Neut # (Auto) 21.25 K/uL (1.4-6.5) H 10/03/21 00:32 Lymph # (Auto) 0.56 K/uL (1.2-3.4) L 11/03/21 00:32 [place] # (Auto) 0.48 K/uL (0.11-0.59) 10/03/21 00:32 Eos # (Auto) 0.00 K/uL (0-0.5) 10/03/21 00:32 Baso # (Auto) 0.01 K/uL (0-0.2) 10/03/21 00:32 Immature Gran # (Auto) 0.08 K/uL (0.00-0.02) H 10/03/21 00:32 PT 19.2 Seconds (9.0-12.0) H 10/03/21 00:32 INR 2.0 (0.9-1.1) H 10/03/21 00:32 Sodium 133 mmol/L (136-145) L 10/03/21 00:32 Potassium 2.8 mmol/L (3.5-5.1) L 10/03/21 00:32 Chloride 97 mmol/L (98-107) L 10/03/21 00:32 Carbon Dioxide 22 mmol/L (21-32) 10/03/21 00:32 Anion Gap 14.0 (3-11) H 10/03/21 00:32 BUN 13 mg/dl (7-18) 10/03/21 00:32 Creatinine 0.96 mg/dl (0.6-1.2) 10/03/21 00:32 Est Cr Clr Drug Dosing Not Reportable 10/03/21 00:32 Est GFR ( Amer) 69.9 ml/min 10/03/21 00:32 Est GFR (Non-Af Amer) 60.3 ml/min 10/03/21 00:32 BUN/Creatinine Ratio 13.9 (10-20) 10/03/21 00:32 Glucose 106 mg/dl (70-99) H 10/03/21 00:32 Calcium 9.1 mg/dl (8.5-10.1) 10/03/21 00:32 Total Bilirubin 2.4 mg/dl (0.2-1) H 10/03/21 00:32 AST 198 U/L (15-37) H 10/03/21 00:32 ALT 99 U/L (12-78) H 10/03/21 00:32 Alkaline Phosphatase 76 U/L (45-117) 10/03/21 00:32 Troponin I < 0.015 ng/ml (0-0.045) 10/03/21 00:32 Total Protein 7.5 gm/dl (6.4-8.2) 10/03/21 00:32 Albumin 3.4 gm/dl (3.4-5.0) 10/03/21 00:32 Globulin 4.1 gm/dl (2.5-4.0) H 10/03/21 00:32 Albumin/Globulin Ratio 0.8 (0.9-2) L 10/03/21 00:32 Lipase 82 U/L (73-393) 10/03/21 00:32 COVID-19 Eval Order Covid19 at [facility] 10/03/21 01:45 SARS-CoV-2 (PCR) NEGATIVE (Negative) 10/03/21 01:45 Diagnostic Findings RUQUS - Per STAT rad: Comparison to CT scan from 08/12/2017 - The liver is mildly enlarged and fatty infiltrated measuring 18.2cm. No focal liver lesion is seen. The portal vein is patent with normal direction of flow. The CBD is upper normal size measuring 8mm. No choledocholithiasis is seen. The gallbladder is fully distended with a 9mm shadowing stone within it dependently. THe wal lthickness is normal measuring less than 2mm. There is a trace amount of pericholecystic fluid. Sonographic Campos's sign cannot be assessed due to recent pain medication administration. The right kidney is unremarkable. No hydronephrosis. ECG Additional Comments: EKG with AF at 105bpm, normal axis, QRS=84, VEr=605, no acute ischemic changes. No change from prior study Code Status & VTE Plan VTE Prophylaxis Plan VTE Prophylaxis will be ordered: Yes PG Care Time/CCT Total # of Minutes Spent Total Time Spent with Patient: Total time spent is greater than 50% in coordination of care (as documented) at patient's floor/unit and/or counseling patient: Coding Level of Care Code 22501 Initial Inpt Care Lvl 3 Diagnoses Hypertension I10 Hypothyroidism E03.9 Atrial fibrillation I48.91 Acute cholecystitis K81.0 Hypokalemia E87.6
--- NOTE | 2021-10-03 07:18 | Ultrasound Report ---
US abdomen limited CLINICAL HISTORY: RUQ pain. COMPARISON: Previous abdominal CT from 08/12/2017 TECHNIQUE: Multiple grayscale and color images of the right upper quadrant of the abdomen. FINDINGS: This is a limited study due to overlying bowel gas. Pancreas: The head and body the pancreas are within normal limits. The tail is obscured by overlying bowel gas. Liver: Liver is increased in echogenicity characteristic of fatty infiltration. Liver is mildly enlar ged measuring 18.2 cm in the axillary margin. There is no evidence for a focal mass. There is no intr ahepatic biliary duct dilatation. Gallbladder: The gallbladder is distended with no evidence for wall thickening. There is evidence fo r a single calculus with posterior acoustic shadowing seen. There is minimal pericholecystic fluid pr esent. The patient had recent pain medication and Campos's sign cannot be assessed. Common Bile Duct: (CBD): There is mild dilatation of the common bile duct measuring 9 mm. There is no evidence for choledocholithiasis. Inferior Vena Cava (IVC): The imaged IVC is patent. Right kidney: There is no evidence for hydronephrosis, calculus or gross renal mass. The kidney is n ormal in size measuring Centimeters IMPRESSION: 1. Distention of the gallbladder with cholelithiasis and minimal pericholecystic edema. The presence of early acute cholecystitis cannot be completely excluded due to the patient having had pain medicin e. Campos's sign cannot be assessed. 2. Mild dilatation of the common bile duct with no evidence of choledocholithiasis. 3. Mild hepatomegaly with fatty infiltration of the liver. ACT 112: Negative or not required by law. Electronically signed by: Laurent Wasserman M.D. 10/03/2021 7:17 AM
[2021-10-03] MEDS ORDERED: METOPROLOL TARTRATE 1 MG/ML VIAL IV STA (08:15)
[2021-10-03] MEDS ORDERED: METOPROLOL TARTRATE 50 MG TAB PO STA (08:16)
[2021-10-03] MEDS ORDERED: METOPROLOL TARTRATE 1 MG/ML VIAL IV ONE (08:20)
[2021-10-03] MEDS ORDERED: METOPROLOL TARTRATE 50 MG TAB ONE (08:20)
[2021-10-03] MEDS ORDERED: PHYTONADIONE 10 MG in SODIUM CHLORIDE 0.9% 50 ML IV ONE (08:30)
[2021-10-03] MEDS ORDERED: ACETAMINOPHEN 325 MG TAB PO PRN (09:48)
[2021-10-03] MEDS ORDERED: MoRPHine SULFATE 2 MG/ML CARP IV PRN (09:48)
[2021-10-03] MEDS ORDERED: ONDANSETRON INJ 2 MG/ML 2 ML VIAL IV PRN ×2 (09:48→12:38)
[2021-10-03] MEDS ORDERED: DOCUSATE SODIUM 100 MG CAP PO PRN (09:48)
[2021-10-03] MEDS ORDERED: POLYETHYLENE (MIRALAX) 17 GM PACK PO PRN (09:48)
--- NOTE | 2021-10-03 09:50 | Gastrointestinal Consultation ---
Date of Consultation October 03, 2021 Assessment & Plan (1) Acute cholecystitis: 70 year old female admitted w/ pain, nausea, imaging concerning for gallstones, acute cholecystitis, biliary dilation w/ elevated LFTs raising concern for CBD stone/sludge. NPO Hold Coumadin Vit K ordered EUS +/- ERCP today Continue IV ABX Continue supportive measure and pain control CCY per general surgery team Thank you for allowing us to participate in the care of this patient. Please call with any acute changes, questions or concerns. Please see addendum below with additional recommendation from my supervising physician. Supervising Physician Co-Signing Physician Notes I performed a history and physical examination of the patient today, including specifically on physical exam - soft abdomen. I have discussed the patient's management with the advanced practitioner. Please refer to the nurse practitioner's note for the documented findings and plan of care. EUS/ERCP Patient was explained in detail regarding risks, benefits, limitations and alternatives of the above endoscopic procedure. Risks of intravenous sedation used for procedure were also explained. Risks include, but not limited to perforation, bleeding, infection, respiratory distress, cardiac arrest and . Patient is also aware about the possibility of missed lesion. Patient's questions were answered. The patient verbalized understanding the information and agreed to undergo the procedure. History of Present Illness Reason for Consultation: elevated LFT, gallstones Requesting Physician: Cullen Attending Physician: Beth Berman MD History of Present Illness 70 year old female with history of afib on coumadin, pre-diabets, dyslipidemia, htn, OA and others below admitted w/ pain, nausea. Imaging concerning for gall stones, acute cholecystitis and biliary dilation - GI asked to evaluate given elevated LFTs. Pt was seen, chart reviewed. Notes her symptoms are similar to prior epidoes of biliary pain. Ruq, nausea w/ emesis. Denies GERD. No change in bowel habits. Denies black or bloody stools. No fevers but feels chills. No CP, SOB ABD US 2020: . Distention of the gallbladder with cholelithiasis and minimal pericholecystic edema. The presence of early acute cholecystitis cannot be completely excluded due to the patient having had pain medicine. Campos's sign cannot be assessed. 2. Mild dilatation of the common bile duct with no evidence of choledocholithiasis. 3. Mild hepatomegaly with fatty infiltration of the liver. Allergies Allergy/AdvReac Type Severity Reaction Status Date / Time tetanus toxoid, adsorbed Allergy Mild LOCAL Verified 10/03/21 01:11 REACTION Home Medications Medication Instructions Recorded Confirmed Type ascorbic acid (vitamin C) 1,000 mg 1 gm PO DAILY tab 10/04/19 10/03/21 History tablet coenzyme Q10 200 mg capsule 200 mg PO Q OTHER DAY 10/04/19 10/03/21 History vitamin B complex 1 tab PO DAILY 01/22/20 10/03/21 History potassium chloride 20 mEq 20 meq PO DAILY #90 tab 12/04/20 10/03/21 Rx tablet,extended release(part/cryst) (Klor-Con M) clindamycin phosphate 1 % topical 1 applic TOPICAL DAILY PRN #60 g 04/24/21 10/03/21 Rx gel levothyroxine 112 mcg tablet 112 mcg PO DAILY #90 tab 07/10/21 10/03/21 Rx warfarin 5 mg tablet 5 mg PO .COMPLEX #90 tab 07/26/21 10/03/21 Rx metoprolol tartrate 50 mg tablet 50 mg PO BID #180 tab 07/27/21 10/03/21 Rx triamterene 75 1 tab PO DAILY #90 tab 07/27/21 10/03/21 Rx mg-hydrochlorothiazide 50 mg tablet Patient History Medical History (Updated 10/03/21 @ 12:35 by Nabil Streeter MD) Atrial fibrillation Dyslipidemia Hypertension Hypothyroidism Migraine Osteoarthritis Umbilical hernia Vertigo Surgical History H/O wisdom tooth extraction S/P hysterectomy S/P thyroidectomy S/P TKR (total knee replacement) (11/08/14) Left S/P tonsillectomy Family History Grandmother (Maternal) Myocardial infarction Grandfather (Paternal) Myocardial infarction Uncle Esophageal cancer Mother Atrial fibrillation Hypertension Osteoarthritis Kidney disease Aunt Breast cancer Colorectal cancer Denies family history of Ovarian cancer Prostate cancer Lung cancer Social History Smoking Status: Never smoker Second Hand Exposure: Yes; Hx Alcohol Use: No Hx Substance Use: No Preferred Language: [place] Verdean Communication Ability: Effective Visual Impairment: No Limitations Hearing Ability: Normal House Decorator Required: No Beliefs That Will Affect Care: None marital status: Single Current Living Situation: Alone current occupational status: retired current occupation: nurse Feels Safe at Home: Yes Childhood Exposure to Second-Hand Smoke: Yes Diet Comment: regular caffeine: Yes (coffee tea) during the past year weight has: remained stable Dental Care, Regularly: Yes Physical Activity Frequency: 3-4 Times per Week Physical Activity Frequency Comment: general house work, exercise for legs Seatbelt Use: always Sunscreen Use: No Review of Systems Review of Systems: All systems reviewed & are unremarkable except as noted in HPI & below Physical Exam Constitutional: WD/WN, vitals as above Neck: trachea midline, no thyromegaly Respiratory: normal respiratory effort, lungs clear to auscultation Cardiovascular: Rate/Rhythm: + tachycardic Gastrointestinal (Abdomen): normal bowel sounds, soft, nontender, no hepatosplenomegaly Skin: no rashes, warm and dry Results & Data ([facility]) Vital Signs (Past 12 Hours) Vital Signs Temp Pulse Resp BP Pulse Ox 10/03/21 08:28 155 H 174/98 H 10/03/21 05:00 114/73 93 10/03/21 04:30 93 10/03/21 04:00 94 10/03/21 03:53 18 135/71 96 10/03/21 01:30 95 H 18 102/58 L 92 10/03/21 01:00 91 H 22 97 10/03/21 00:41 104 H 22 109/61 95 10/02/21 23:56 36.5 C 107 H 20 103/62 96 Laboratory Results 10/03/21 10/03/21 10/03/21 Range/Units 01:45 01:45 00:32 WBC (4.8-10.8) K/uL RBC (4.2-5.4) M/uL Hgb (12.0-16.0) g/dL Hct (37-47) % MCV (80-100) fL MCH (25-34) pg MCHC (32-36) g/dL RDW Std Deviation (36.4-46.3) fL RDW Coeff of Linnette (11.5-14.5) % Plt Count (130-400) K/uL MPV (7.4-10.4) fL Immature Gran % (Auto) % Neut % (Auto) % Lymph % (Auto) % [place] % (Auto) % Eos % (Auto) % Baso % (Auto) % Neut # (Auto) (1.4-6.5) K/uL Lymph # (Auto) (1.2-3.4) K/uL [place] # (Auto) (0.11-0.59) K/uL Eos # (Auto) (0-0.5) K/uL Baso # (Auto) (0-0.2) K/uL Immature Gran # (Auto) (0.00-0.02) K/uL PT (9.0-12.0) Seconds INR (0.9-1.1) Sodium 133 L (136-145) mmol/L Potassium 2.8 L (3.5-5.1) mmol/L Chloride 97 L (98-107) mmol/L Carbon Dioxide 22 (21-32) mmol/L Anion Gap 14.0 H (3-11) BUN 13 (7-18) mg/dl Creatinine 0.96 (0.6-1.2) mg/dl Est Cr Clr Drug Dosing Not Reportable Est GFR ( Amer) 69.9 ml/min Est GFR (Non-Af Amer) 60.3 ml/min BUN/Creatinine Ratio 13.9 (10-20) Glucose 106 H (70-99) mg/dl Calcium 9.1 (8.5-10.1) mg/dl Total Bilirubin 2.4 H (0.2-1) mg/dl AST 198 H (15-37) U/L ALT 99 H (12-78) U/L Alkaline Phosphatase 76 (45-117) U/L Troponin I < 0.015 (0-0.045) ng/ml Total Protein 7.5 (6.4-8.2) gm/dl Albumin 3.4 (3.4-5.0) gm/dl Globulin 4.1 H (2.5-4.0) gm/dl Albumin/Globulin Ratio 0.8 L (0.9-2) Lipase 82 (73-393) U/L COVID-19 Eval Order Covid19 at [facility] SARS-CoV-2 (PCR) NEGATIVE (Negative) 10/03/21 10/03/21 Range/Units 00:32 00:32 WBC 22.38 H (4.8-10.8) K/uL RBC 4.73 (4.2-5.4) M/uL Hgb 14.8 (12.0-16.0) g/dL Hct 42.8 (37-47) % MCV 90.5 (80-100) fL MCH 31.3 (25-34) pg MCHC 34.6 (32-36) g/dL RDW Std Deviation 45.3 (36.4-46.3) fL RDW Coeff of Linnette 13.7 (11.5-14.5) % Plt Count 227 (130-400) K/uL MPV 10.3 (7.4-10.4) fL Immature Gran % (Auto) 0.4 % Neut % (Auto) 95.0 % Lymph % (Auto) 2.5 % [place] % (Auto) 2.1 % Eos % (Auto) 0.0 % Baso % (Auto) 0.0 % Neut # (Auto) 21.25 H (1.4-6.5) K/uL Lymph # (Auto) 0.56 L (1.2-3.4) K/uL [place] # (Auto) 0.48 (0.11-0.59) K/uL Eos # (Auto) 0.00 (0-0.5) K/uL Baso # (Auto) 0.01 (0-0.2) K/uL Immature Gran # (Auto) 0.08 H (0.00-0.02) K/uL PT 19.2 H (9.0-12.0) Seconds INR 2.0 H (0.9-1.1) Sodium (136-145) mmol/L Potassium (3.5-5.1) mmol/L Chloride (98-107) mmol/L Carbon Dioxide (21-32) mmol/L Anion Gap (3-11) BUN (7-18) mg/dl Creatinine (0.6-1.2) mg/dl Est Cr Clr Drug Dosing Est GFR ( Amer) ml/min Est GFR (Non-Af Amer) ml/min BUN/Creatinine Ratio (10-20) Glucose (70-99) mg/dl Calcium (8.5-10.1) mg/dl Total Bilirubin (0.2-1) mg/dl AST (15-37) U/L ALT (12-78) U/L Alkaline Phosphatase (45-117) U/L Troponin I (0-0.045) ng/ml Total Protein (6.4-8.2) gm/dl Albumin (3.4-5.0) gm/dl Globulin (2.5-4.0) gm/dl Albumin/Globulin Ratio (0.9-2) Lipase (73-393) U/L COVID-19 Eval Order SARS-CoV-2 (PCR) (Negative)
[2021-10-03] MEDS ORDERED: POTASSIUM CHLORIDE / WTR 10 MEQ/100 ML PLCT IV STA (10:21)
[2021-10-03] MEDS ORDERED: POTASSIUM CHLORIDE 10 MEQ / 100ML WTR IV ONE (10:23)
--- NOTE | 2021-10-03 10:35 | Surgery Consultation ---
Date of Consultation October 03, 2021 Assessment & Plan (1) Acute cholecystitis: pt is a 70 year-old female who presents to ER with acute RUQ pain, IMP: acute cholecystitis, cholelithiasis plan, recommend- correct INR, Hold coumadin, consult GI for ERCP, consult sheet metal assembler for pre-op clearance, laparoscopic cholecystectomy possible open or cholangiogram tomorrow, D/W benefits, rissk and alternatives of the surgery, pt understood, she agrees with the plan, I answered all questions, NPO after MN, IV zosyn 3.375gm q8h, control pain, IV fluid, (2) Cholelithiasis: see above History of Present Illness Reason for Consultation: acute cholecystitis, Attending Physician: Beth Berman MD History of Present Illness History of Present Illness Chief Complaint: RUQ pain Primary Care Provider: Julia Waller DO Fariha Angeles is a 70yo female with history of AF on Coumadin anticoagulation, HTN, HLP and Hypothyroidism presenting with RUQ pain. Patient reports longstanding history of gallbladder pain dating back to her teenage years. Her episodes are usually brief and self-limiting. This afternoon around 1400 she developed acute RUQ discomfort after eating chips and salsa. The pain was severe, stabbing in nature and radiating into epigastrium and back. She had some associated nausea without vomiting and chills as well. Pain persisted longer than usual which prompted her to come to the ER. Last episode of biliary pain was January 2021 Pain relieved with morphine. Now with dull aching pain in RUQ, much improved No additional complaints at this time In the ER patient afebrile, HD stable, nontoxic in appearance. ER Course: Morphine, Zosyn, KCl, NSS I ( Vini Carl mD ) got a call for consult acute cholecystitis, I reviewed pt's H/P, labs, U/S study with pt, pt is still have RUQ pain and A-Fib, Allergies Allergy/AdvReac Type Severity Reaction Status Date / Time tetanus toxoid, adsorbed Allergy Mild LOCAL Verified 10/03/21 01:11 REACTION Home Medications Medication Instructions Recorded Confirmed Type ascorbic acid (vitamin C) 1,000 mg 1 gm PO DAILY tab 10/04/1910/03 History tablet coenzyme Q10 200 mg capsule 200 mg PO Q OTHER DAY 10/04/19 10/03/21 H istory vitamin B complex 1 tab PO DAILY 01/22/20 10/03/21 History potassium chloride 20 mEq 20 meq PO DAILY #90 tab 12/04/20 10/03/21 R x tablet,extended release(part/cryst) (Gaurav García) clindamycin phosphate 1 % topical 1 applic TOPICAL DAILY PRN #60 g 04/24/21 10/03/21 Rx gel levothyroxine 112 mcg tablet 112 mcg PO DAILY #90 tab 07/10/21 Rx warfarin 5 mg tablet 5 mg PO .COMPLEX #90 tab 07/26/21 10/03/21 Rx metoprolol tartrate 50 mg tablet 50 mg PO BID #180 tab 07/27/2110/03 Rx triamterene 75 1 tab PO DAILY #90 tab 07/27/21 10/03/21 Rx mg-hydrochlorothiazide 50 mg tablet Past Med/Surg History Medical History(Updated 10/03/21 @ 04:17 by Leesa Hickman DO) Atrial fibrillation Dyslipidemia Hypertension Hypothyroidism Migraine Osteoarthritis Umbilical hernia Vertigo Surgical History H/O wisdom tooth extraction S/P hysterectomy S/P thyroidectomy S/P TKR (total knee replacement) (11/08/14) LeftS/P tonsillectomy Family History Grandmother (Maternal) Myocardial infarctionGrandfather (Paternal) Myocardial infarctionUncle Esophageal cancerMother Atrial fibrillation Hypertension Osteoarthritis Kidney diseaseAunt Breast cancer Colorectal cancerDenies family history of Ovarian cancer Prostate cancer Lung cancer Social History Smoking Status: Never smoker Second Hand Exposure: Yes; Hx Alcohol Use: No Hx Substance Use: No Preferred Language: [place] Citizen Communication Ability: Effective Visual Impairment: No Limitations Hearing Ability: Normal Learning Operations Specialist Required: No Beliefs That Will Affect Care: None marital status: Single Current Living Situation: Alone current occupational status: retired current occupation: nurse Feels Safe at Home: Yes Childhood Exposure to Second-Hand Smoke: Yes Diet Comment: regular caffeine: Yes (coffee tea) during the past year weight has: remained stable Dental Care, Regularly: Yes Physical Activity Frequency: 3-4 Times per Week Physical Activity Frequency Comment: general house work, exercise for legs Seatbelt Use: always Sunscreen Use: No Review of Systems Review of Systems: All systems reviewed & are unremarkable except as noted in HPI & below Allergies Allergy/AdvReac Type Severity Reaction Status Date / Time tetanus toxoid, adsorbed Allergy Mild LOCAL Verified 10/03/21 01:11 REACTION Home Medications Medication Instructions Recorded Confirmed Type ascorbic acid (vitamin C) 1,000 mg 1 gm PO DAILY tab 10/04/19 10/03/21 History tablet coenzyme Q10 200 mg capsule 200 mg PO Q OTHER DAY 10/04/19 10/03/21 History vitamin B complex 1 tab PO DAILY 01/22/20 10/03/21 History potassium chloride 20 mEq 20 meq PO DAILY #90 tab 12/04/20 10/03/21 Rx tablet,extended release(part/cryst) (Klor-Con M) clindamycin phosphate 1 % topical 1 applic TOPICAL DAILY PRN #60 g 04/24/21 10/03/21 Rx gel levothyroxine 112 mcg tablet 112 mcg PO DAILY #90 tab 07/10/21 10/03/21 Rx warfarin 5 mg tablet 5 mg PO .COMPLEX #90 tab 07/26/21 10/03/21 Rx metoprolol tartrate 50 mg tablet 50 mg PO BID #180 tab 07/27/21 10/03/21 Rx triamterene 75 1 tab PO DAILY #90 tab 07/27/21 10/03/21 Rx mg-hydrochlorothiazide 50 mg tablet Patient History Medical History (Updated 10/03/21 @ 10:37 by Vini Carl MD) Atrial fibrillation Dyslipidemia Hypertension Hypothyroidism Migraine Osteoarthritis Umbilical hernia Vertigo Surgical History H/O wisdom tooth extraction S/P hysterectomy S/P thyroidectomy S/P TKR (total knee replacement) (11/08/14) Left S/P tonsillectomy Family History Grandmother (Maternal) Myocardial infarction Grandfather (Paternal) Myocardial infarction Uncle Esophageal cancer Mother Atrial fibrillation Hypertension Osteoarthritis Kidney disease Aunt Breast cancer Colorectal cancer Denies family history of Ovarian cancer Prostate cancer Lung cancer Social History Smoking Status: Never smoker Second Hand Exposure: Yes; Hx Alcohol Use: No Hx Substance Use: No Preferred Language: [place] Citizen Communication Ability: Effective Visual Impairment: No Limitations Hearing Ability: Normal Learning Operations Specialist Required: No Beliefs That Will Affect Care: None marital status: Single Current Living Situation: Alone current occupational status: retired current occupation: nurse Feels Safe at Home: Yes Childhood Exposure to Second-Hand Smoke: Yes Diet Comment: regular caffeine: Yes (coffee tea) during the past year weight has: remained stable Dental Care, Regularly: Yes Physical Activity Frequency: 3-4 Times per Week Physical Activity Frequency Comment: general house work, exercise for legs Seatbelt Use: always Sunscreen Use: No Review of Systems Constitutional: as per Subjective / HPI Eyes: as per Subjective / HPI Respiratory: as per Subjective / HPI Cardiovascular: Additional Comments: HTN, A-fib Gastrointestinal: as per Subjective / HPI Genitourinary: as per Subjective / HPI Musculoskeletal: as per Subjective / HPI Neurologic: as per Subjective / HPI Psychiatric: as per Subjective / HPI Endocrine: prediabetes Physical Exam Constitutional: WD/WN, vitals as above Eyes: PERRL, conjunctivae normal, anicteric sclerae Neck: trachea midline, no thyromegaly Respiratory: normal respiratory effort, lungs clear to auscultation Cardiovascular: normal S1, S@, no murmurs, A-fib Gastrointestinal (Abdomen): soft, mild tenderness at RUQ, no rebound pain, no distend, BS + Musculoskeletal: no cyanosis or clubbing, extremities motor strength 5/5 Neurologic: patellar DTR's 2+ bilat, sensation intact Psychiatric: A+Ox3, euthymic affect Results & Data ([facility]) Vital Signs (Past 12 Hours) Vital Signs Temp Pulse Resp BP Pulse Ox 10/03/21 08:28 155 H 174/98 H 10/03/21 05:00 114/73 93 10/03/21 04:30 93 10/03/21 04:00 94 10/03/21 03:53 18 135/71 96 10/03/21 01:30 95 H 18 102/58 L 92 10/03/21 01:00 91 H 22 97 10/03/21 00:41 104 H 22 109/61 95 10/02/21 23:56 36.5 C 107 H 20 103/62 96 Laboratory Results Abnormal lab results 10/03/21 10/03/21 10/03/21 Range/Units 00:32 00:32 00:32 WBC 22.38 H (4.8-10.8) K/uL Neut # (Auto) 21.25 H (1.4-6.5) K/uL Lymph # (Auto) 0.56 L (1.2-3.4) K/uL Immature Gran # (Auto) 0.08 H (0.00-0.02) K/uL PT 19.2 H (9.0-12.0) Seconds INR 2.0 H (0.9-1.1) Sodium 133 L (136-145) mmol/L Potassium 2.8 L (3.5-5.1) mmol/L Chloride 97 L (98-107) mmol/L Anion Gap 14.0 H (3-11) Glucose 106 H (70-99) mg/dl Total Bilirubin 2.4 H (0.2-1) mg/dl AST 198 H (15-37) U/L ALT 99 H (12-78) U/L Globulin 4.1 H (2.5-4.0) gm/dl Albumin/Globulin Ratio 0.8 L (0.9-2) Diagnostic Findings US abdomen limited CLINICAL HISTORY: RUQ pain. COMPARISON: Previous abdominal CT from 08/12/2017 TECHNIQUE: Multiple grayscale and color images of the right upper quadrant of the abdomen. FINDINGS: This is a limited study due to overlying bowel gas. Pancreas: The head and body the pancreas are within normal limits. The tail is obscured by overlying bowel gas. Liver: Liver is increased in echogenicity characteristic of fatty infiltration. Liver is mildly enlarged measuring 18.2 cm in the axillary margin. There is no evidence for a focal mass. There is no intrahepatic biliary duct dilatation. Gallbladder: The gallbladder is distended with no evidence for wall thickening. There is evidence for a single calculus with posterior acoustic shadowing seen. There is minimal pericholecystic fluid present. The patient had recent pain medication and Campos's sign cannot be assessed. Common Bile Duct: (CBD): There is mild dilatation of the common bile duct m easuring 9 mm. There is no evidence for choledocholithiasis. Inferior Vena Cava (IVC): The imaged IVC is patent. Right kidney: There is no evidence for hydronephrosis, calculus or gross renal mass. The kidney is normal in size measuring Centimeters IMPRESSION: 1. Distention of the gallbladder with cholelithiasis and minimal pericholecystic edema. The presence of early acute cholecystitis cannot be completely excluded due to the patient having had pain medicine. Campos's sign cannot be assessed. 2. Mild dilatation of the common bile duct with no evidence of choledocholithiasis. 3. Mild hepatomegaly with fatty infiltration of the liver.
--- NOTE | 2021-10-03 10:57 | Electrocardiogram Report ---
Test Reason : Blood Pressure : / mmHG Vent. Rate : 105 BPM Atrial Rate : 127 BPM P-R Int : 000 ms QRS Dur : 084 ms QT Int : 346 ms P-R-T Axes : 000 -01 001 degrees QTc Int : 457 ms Poor data quality, interpretation may be adversely affected Atrial fibrillation with rapid ventricular response Anterior infarct (cited on or before 03-OCT-2021) Abnormal ECG When compared with ECG of 22-JAN-2020 11:46, No significant change was found Confirmed by Nehemiah Maria ([id number]) on 10/03/2021 10:57:31 AM Referred By: REFERRED SELF Confirmed By:Dionisio Maria
[2021-10-03] MEDS: POTASSIUM CHLORIDE / WTR 10 MEQ/100 ML PLCT IV SCH ×3 (11:30→18:51)
[2021-10-03] MEDS ORDERED: PIPERACILLIN/TAZOBACTAM 4.5 GM in DEXTROSE 5% 100 ML IV ONE (12:00)
[2021-10-03] MEDS: LACTATED RINGER'S 1,000 ML IV SCH ×2 (12:10→19:09)
[2021-10-03] MEDS: METOPROLOL TARTRATE 50 MG TAB PO SCH ×2 (12:30→20:35)
[2021-10-03] MEDS: LEVOTHYROXINE SODIUM 112 MCG TABLET PO SCH (12:30)
--- NOTE | 2021-10-03 12:33 | Anesthesiology Consultation ---
Date of Service October 03, 2021 Assessment & Plan (1) Encounter for pre-operative examination: Chart Review Chart Review: Acceptable Risk for Surgery (necessary surgery) and Patient NOT seen in Pre Admission Testing Consults Requested none History Surgery Operation Date: 10/03/21 08:20 Proposed Procedures p Endoscopic Ultrasonography Upper - Martir Chatman MD s Endoscopic Retrograde Cholangiopancreatogram - Martir Chatman MD Operation Date: 10/04/21 11:20 Proposed Procedures p Laparoscopic Cholecystectomy - Vini Carl MD Allergies Allergy/AdvReac Type Severity Reaction Status Date / Time tetanus toxoid, adsorbed Allergy Mild LOCAL Verified 10/03/21 01:11 REACTION Medications Home Medications Medication Instructions Recorded Confirmed Last Taken ascorbic acid (vitamin C) 1,000 mg 1 gm PO DAILY tab 10/04/19 10/03/21 10/02/21 tablet coenzyme Q10 200 mg capsule 200 mg PO Q OTHER DAY 10/04/19 10/03/21 10/02/21 vitamin B complex 1 tab PO DAILY 01/22/20 10/03/21 10/02/21 potassium chloride 20 mEq 20 meq PO DAILY #90 tab 12/04/20 10/03/21 10/02/21 tablet,extended release(part/cryst) (Klor-Con M) clindamycin phosphate 1 % topical 1 applic TOPICAL DAILY PRN #60 g 04/24/21 10/03/21 Unknown gel levothyroxine 112 mcg tablet 112 mcg PO DAILY #90 tab 07/10/21 10/03/21 10/02/21 warfarin 5 mg tablet 5 mg PO .COMPLEX #90 tab 07/26/21 10/03/21 10/01/21 metoprolol tartrate 50 mg tablet 50 mg PO BID #180 tab 07/27/21 10/03/21 10/02/21 08:00 triamterene 75 1 tab PO DAILY #90 tab 07/27/21 10/03/21 10/02/21 mg-hydrochlorothiazide 50 mg tablet Active Medications Generic Name Dose Route Start Last Admin Trade Name Freq PRN Reason Stop Dose Admin Lactated Ringer's 1,000 mls @ 125 mls/hr 10/03/21 09:48 10/03/21 12:10 Lr IV 10/04/21 01:47 125 mls/hr .Q8H DANIELE Administration Potassium Chloride 10 meq in 100 mls @ 100 mls/hr 10/03/21 11:15 10/03/21 11:30 K Talat / Wtr IV 10/03/21 14:14 75 mls/hr Q1H DANIELE Administration Past Medical History Medical History (Updated 10/03/21 @ 12:35 by Nabil Streeter MD) Atrial fibrillation Dyslipidemia Hypertension Hypothyroidism Migraine Osteoarthritis Umbilical hernia Vertigo Past Family History Family History Grandmother (Maternal) Myocardial infarction Grandfather (Paternal) Myocardial infarction Uncle Esophageal cancer Mother Atrial fibrillation Hypertension Osteoarthritis Kidney disease Aunt Breast cancer Colorectal cancer Denies family history of Ovarian cancer Prostate cancer Lung cancer Past Surgical History Surgical History H/O wisdom tooth extraction S/P hysterectomy S/P thyroidectomy S/P TKR (total knee replacement) (11/08/14) Left S/P tonsillectomy Social History Smoking Status: Never smoker Hx Alcohol Use: No Hx Substance Use: No Physical Exam Vital Signs Last Vital Signs Temp 36.9 C 10/03/21 10:00 Pulse 87 10/03/21 10:00 Resp 22 10/03/21 10:00 BP 127/73 10/03/21 10:00 Pulse Ox 95 10/03/21 10:00 Testing Laboratory Results 10/03/21 00:32 10/03/21 00:32 PT 19.2 Seconds (9.0-12.0) H 10/03/21 00:32 INR 2.0 (0.9-1.1) H 10/03/21 00:32 Electrocardiogram Date: 11/02/21 DICTATED BY:Nehemiah Maria MD Test Reason : Blood Pressure : / mmHG Vent. Rate : 105 BPM Atrial Rate : 127 BPM P-R Int : 000 ms QRS Dur : 084 ms QT Int : 346 ms P-R-T Axes : 000 -01 001 degrees QTc Int : 457 ms Poor data quality, interpretation may be adversely affected Atrial fibrillation with rapid ventricular response Anterior infarct (cited on or before 03-OCT-2021) Abnormal ECG When compared with ECG of 22-JAN-2020 11:46, No significant change was found Confirmed by Nehemiah Maria ([id number]) on 10/03/2021 10:57:31 AM Referred By: REFERRED SELF Confirmed By:Dionisio Maria Signed By: 10/03/21 1057
[2021-10-03] MEDS ORDERED: ATROPINE SULFATE 0.1 MG/ML 10ML SYR IV PRN (12:38)
[2021-10-03] MEDS ORDERED: PHENYLEPHRINE 100MCG/ML 5ML SYR IV PRN (12:38)
[2021-10-03] MEDS ORDERED: fentaNYL citrate 100 MCG/2 ML VIAL IV PRN (12:38)
[2021-10-03] MEDS ORDERED: LABETALOL HCL IV 5 MG/ML 20ML IV PRN (12:38)
[2021-10-03] MEDS ORDERED: ePHEDrine sulfate 50 MG/ML AMP IV PRN (12:38)
--- NOTE | 2021-10-03 12:41 | History & Physical Bridge Note ---
Date of Service October 03, 2021 History & Physical Bridge Note I have examined the patient, reviewed the History & Physical and in the interval since the performance of the History & Physical I have noted the following changes of clinical significance: Patient feeling better now with pain medicine, pain in the right upper quadrant is less but still present. No further nausea. She was in rapid atrial fibrillation this morning she missed her p.o. metoprolol last night. I gave her IV metoprolol and her morning p.o. metoprolol and rates are now improved when I saw her. I discussed her care with the studio owner who will perform ERCP today. The general surgeon is requesting a preoperative cardiology evaluation. The patient reports that she has never followed with a tester food products for her atrial fibrillation. She has no history of CAD or angina. She is easily able to climb up and down flight of stairs without chest pain or shortness of breath and is quite active. Her PCP manages her atrial fibrillation on her Coumadin which she has been on for 10 years and does not want a switch to a DOAC. Vitals reviewed Gen: AAOx3, NAD HEENT: Anicteric sclerae, EOMI CV: Irregularly irregular, normal rate no mgr nl S1S2 Pulm: CTAB no wcr Abd: +BS soft minimal tenderness right upper quadrant without guarding or rebound ND no masses or hernias Ext: No edema, 2+ DP pulses Skin: No rashes, warm/dry Neuro: Full strength throughout Laboratory values reviewed, radiology studies reviewed ECG reviewed 70-year-old female here with likely choledocholithiasis and acute cholecystitis. Needs urgent ERCP today-discussed with GI Reverse Coumadin with 10 mg of IV vitamin K, repeat INR this afternoon Replete potassium with further for riders potassium chloride and repeat potassium level this afternoon Plan for cholecystectomy tomorrow, n.p.o. after midnight We will consult cardiology as per surgery request for preoperative evaluation, although patient can easily achieve at least 4 METS and has no active cardiac issues, she is at average risk perioperatively for cardiovascular mortality and morbidity and should proceed with surgery as planned.
[2021-10-03] MEDS ORDERED: fentaNYL citrate 100 MCG/2 ML VIAL ONE (14:04)
[2021-10-03] MEDS ORDERED: INDOMETHACIN 50 MG SUPP PR ONE (14:11)
[2021-10-03] MEDS ORDERED: SUGAMMADEX SODIUM 200 MG/2 ML VIAL IV ONE (14:49)
--- NOTE | 2021-10-03 14:59 | Operative Report ---
Post Operative Report Pre & Post Diagnosis Operation Date: 10/03/21 08:20 Pre-Op Diagnosis: ACUTE CHOLECYSTITIS Post-Op Diagnosis: ACUTE CHOLECYSTITIS Operation Date: 10/04/21 11:20 <No data on this case meets the specified criteria> I identified the patient and participated in the time-out.: Yes Procedure Operation Date: 10/03/21 08:20 Actual Procedures p Endoscopic Ultrasonography Upper, esophagogastroduodenoscopy(Not Applicable) - Martir Chatman MD s Endoscopic Retrograde Cholangiopancreatogram(Not Applicable) - Martir nichols MD Operation Date: 10/04/21 11:20 <No data on this case meets the specified criteria> Surgeon Martir Chatman MD Egg Separator None Estimated Blood Loss 0 Findings See Below (CBD stone removed, cholangitis noted, stent placed) Specimens None Description of Procedure EUS/ERCP I attest to the content of the Intraoperative Record and any orders documented therein. Any exceptions are noted below.
[2021-10-03] MEDS ORDERED: PROPOFOL IV EMULSION 10 MG/ML 20 ML VIAL IV ONE (15:00)
[2021-10-03] MEDS ORDERED: ROCURONIUM BROMIDE 10 MG/ML 5 ML VIAL IV ONE (15:00)
[2021-10-03] MEDS ORDERED: ONDANSETRON INJ 2 MG/ML 2 ML VIAL ONE (15:00)
[2021-10-03] MEDS ORDERED: DEXAMETHASONE SOD INJ 4 MG/ML VIAL ONE (15:00)
[2021-10-03] MEDS ORDERED: SUCCINYLCHOLINE CHLORIDE 20 MG/ML 10 ML VIAL IV ONE (15:00)
[2021-10-03] MEDS ORDERED: LIDOCAINE 2% 2 ML VIAL/AMP(20MG/ML) INFIL ONE (15:00)
--- NOTE | 2021-10-03 15:07 | GI REPORT ---
Patient Name: Fariha Angeles Procedure Date: 10/03/2021 2:11 PM Date of : 1950 Admit Type: Inpatient Age: 70 Gender: Female Attending MD: Martir Chatman MD Procedure: Upper GI endoscopy Providers: Martir Chatman MD Referring MD: Beth Berman Md Indications: Abdominal pain Medicines: General Anesthesia Complications: No immediate complications. Estimated Blood Loss: Estimated blood loss: none. Procedure: Pre-Anesthesia Assessment: - Prior to the procedure, a History and Physical was performed, and patient medications, allergies and sensitivities were reviewed. The patient's tolerance of previous anesthesia was reviewed. - The risks and benefits of the procedure and the sedation options and risks were discussed with the patient. All questions were answered and informed consent was obtained. - Patient identification and proposed procedure were verified prior to the procedure by the physician and the nurse. The procedure was verified in the procedure room. - Pre-procedure physical examination revealed no contraindications to sedation. After obtaining informed consent, the endoscope was passed under direct vision. Throughout the procedure, the patient's blood pressure, pulse, and oxygen saturations were monitored continuously. The Endoscope was introduced through the mouth, and advanced to the second part of duodenum. The upper GI endoscopy was accomplished without difficulty. The patient tolerated the procedure well. Findings: The examined esophagus was normal. The entire examined stomach was normal. The duodenal bulb and second portion of the duodenum were normal. Impression: - Normal esophagus. - Normal stomach. - Normal duodenal bulb and second portion of the duodenum. - No specimens collected. Recommendation: - Perform an upper endoscopic ultrasound (UEUS) today. Martir Chatman MD 10/03/2021 3:07:07 PM This report has been signed electronically. Note Initiated On: 10/03/2021 2:11 PM Number of Addenda: 0 I attest to the content of the Intraoperative Record and orders documented therein, exceptions below {[id number]}
--- NOTE | 2021-10-03 15:09 | GI REPORT ---
Patient Name: Fariha Angeles Procedure Date: 10/03/2021 2:10 PM Date of : 1950 Admit Type: Inpatient Age: 70 Gender: Female Attending MD: Martir Chatman MD Procedure: Upper EUS Providers: Martir Chatman MD Referring MD: Beth Berman Md Indications: Elevated liver enzymes, Suspected choledocholithiasis Medicines: General Anesthesia Complications: No immediate complications. Estimated Blood Loss: Estimated blood loss: none. Procedure: Pre-Anesthesia Assessment: - Prior to the procedure, a History and Physical was performed, and patient medications, allergies and sensitivities were reviewed. The patient's tolerance of previous anesthesia was reviewed. - The risks and benefits of the procedure and the sedation options and risks were discussed with the patient. All questions were answered and informed consent was obtained. - Patient identification and proposed procedure were verified prior to the procedure by the physician and the nurse. The procedure was verified in the procedure room. - Pre-procedure physical examination revealed no contraindications to sedation. After obtaining informed consent, the endoscope was passed under direct vision. Throughout the procedure, the patient's blood pressure, pulse, and oxygen saturations were monitored continuously. The Endosonoscope was introduced through the mouth, and advanced to the second part of duodenum. The upper EUS was accomplished without difficulty. The patient tolerated the procedure well. Findings: ENDOSONOGRAPHIC FINDING: : There was no sign of significant endosonographic abnormality in the ampulla. There was dilation in the common bile duct which measured up to 10 mm. One stone was visualized endosonographically in the common bile duct. The stone was round. It was hyperechoic and characterized by shadowing. Many stones were visualized endosonographically in the gallbladder. They were hyperechoic and characterized by shadowing. There was no sign of significant endosonographic abnormality in the visualized portion of the liver. There was no sign of significant endosonographic abnormality in the entire pancreas. The pancreatic duct measured up to 2 mm in diameter. There was no sign of significant endosonographic abnormality in the visualized portion of the left adrenal gland. There was no sign of significant endosonographic abnormality involving the celiac trunk. Impression: - There was no sign of significant pathology in the ampulla. - There was dilation in the common bile duct which measured up to 10 mm. - One stone was visualized endosonographically in the common bile duct. - Many stones were visualized endosonographically in the gallbladder. - There was no evidence of significant pathology in the visualized portion of the liver. - There was no sign of significant pathology in the entire pancreas. - Endosonographic images of the left adrenal gland were unremarkable. - The celiac trunk was endosonographically normal. - No specimens collected. Recommendation: - Perform an ERCP today. Martir Chatman MD 10/03/2021 3:09:30 PM This report has been signed electronically. Note Initiated On: 10/03/2021 2:10 PM Number of Addenda: 0 I attest to the content of the Intraoperative Record and orders documented therein, exceptions below {[id number]}
--- NOTE | 2021-10-03 15:13 | GI REPORT ---
Patient Name: Fariha Angeles Procedure Date: 10/03/2021 2:09 PM Date of : 1950 Admit Type: Inpatient Age: 70 Gender: Female Attending MD: Martir Chatman MD Procedure: ERCP Providers: Martir Chatman MD Referring MD: Beth Berman Md Indications: For therapy of bile duct stone(s), Elevated liver enzymes Medicines: General Anesthesia Complications: No immediate complications. Estimated Blood Loss: Estimated blood loss: none. Procedure: Pre-Anesthesia Assessment: - Prior to the procedure, a History and Physical was performed, and patient medications, allergies and sensitivities were reviewed. The patient's tolerance of previous anesthesia was reviewed. - The risks and benefits of the procedure and the sedation options and risks were discussed with the patient. All questions were answered and informed consent was obtained. - Patient identification and proposed procedure were verified prior to the procedure by the physician and the nurse. The procedure was verified in the procedure room. - Pre-procedure physical examination revealed no contraindications to sedation. After obtaining informed consent, the scope was passed under direct vision. Throughout the procedure, the patient's blood pressure, pulse, and oxygen saturations were monitored continuously. The scope was introduced through the mouth, and advanced to the duodenum and used to inject contrast into the bile duct. The ERCP was accomplished without difficulty. The patient tolerated the procedure well. Findings: The physical damage appraiser film was normal. The esophagus was successfully intubated under direct vision. The scope was advanced to a normal major papilla in the descending duodenum without detailed examination of the pharynx, larynx and associated structures, and upper GI tract. The upper GI tract was grossly normal. The major papilla was on the rim of a diverticulum. A 0.035 inch angled standard wire was passed into the biliary tree. The Fusion OMNI sphincterotome was passed over the guidewire and the bile duct was then deeply cannulated. Contrast was injected. I personally interpreted the bile duct images. Ductal flow of contrast was adequate. Image quality was adequate. Contrast extended to the main bile duct. Opacification of the entire biliary tree was successful. The maximum diameter of the ducts was 10 mm. Biliary sphincterotomy was made with a monofilament traction (standard) sphincterotome using ERBE electrocautery. There was no post-sphincterotomy bleeding. The biliary tree was swept with a 12 mm balloon starting at the bifurcation. Sludge was swept from the duct. One stone was removed. No stones remained. Pus was swept from the duct. One 10 Fr by 8 cm plastic biliary stent with two external flaps and a single internal flap was placed into the common bile duct. Bile flowed through the stent. The stent was in good position. Impression: - The major papilla was on the rim of a diverticulum. - Choledocholithiasis was found. Complete removal was accomplished by biliary sphincterotomy and balloon extraction. - The biliary tree was swept and pus was found. - One plastic biliary stent was placed into the common bile duct. Recommendation: - [facility]. - Repeat ERCP in 6 - 8 weeks to remove stent. - Follow up with surgery for cholecystectomy. Martir Chatman MD 10/03/2021 3:13:08 PM This report has been signed electronically. Note Initiated On: 10/03/2021 2:09 PM Number of Addenda: 0 I attest to the content of the Intraoperative Record and orders documented therein, exceptions below {[id number]}
[2021-10-03] MEDS: PATIENT'S HEIGHT AND/OR WEIGHT NEEDED SCH ×2 (15:19→18:52)
--- NOTE | 2021-10-03 15:33 | Anesthesiology Progress Note ---
Date of Service October 03, 2021 Anesthesia Post Procedure Vital Signs Vital Signs: Temp Pulse Pulse Resp BP BP Pulse Ox 10/03/21 15:30 96 H 16 116/53 L 100 10/03/21 15:20 90 16 109/61 100 10/03/21 15:12 36.6 C 91 H 16 112/44 L 98 10/03/21 13:04 37.5 C 95 H 18 135/80 96 10/03/21 10:00 36.9 C 87 22 127/73 95 10/03/21 08:28 155 H 174/98 H 10/03/21 05:00 114/73 93 10/03/21 04:30 93 10/03/21 04:00 94 10/03/21 03:53 18 135/71 96 10/03/21 01:30 95 H 18 102/58 L 92 10/03/21 01:00 91 H 22 97 10/03/21 00:41 104 H 22 109/61 95 10/02/21 23:56 36.5 C 107 H 20 103/62 96 Pain Intensity Right Upper Abdomen: Pain Intensity: 0 Transfer of Care Handoff Completed per policy Notes Mental Status: alert / awake / arousable Patient Amnestic to Procedure: Yes Nausea / Vomiting: adequately controlled Pain: adequately controlled Airway Patency, RR, SpO2: stable & adequate BP & HR: stable & adequate Hydration State: stable & adequate Anesthetic Complications: no major complications apparent and Pt Satisfied with anesthetic care
--- NOTE | 2021-10-03 15:41 | Anesthesiology Consultation ---
Date of Service October 03, 2021 Assessment & Plan Chart Review Chart Review: Acceptable Risk for Surgery and Patient NOT seen in Pre Admission Testing Consults Requested none History Surgery Operation Date: 10/03/21 08:20 Proposed Procedures p Endoscopic Ultrasonography Upper - Martir Chatman MD s Endoscopic Retrograde Cholangiopancreatogram - Martir Chatman MD Operation Date: 10/04/21 11:20 Proposed Procedures p Laparoscopic Cholecystectomy - Vini Carl MD Height/Weight Height: 5 ft 2.5 in Weight: 104.2 kg Allergies Allergy/AdvReac Type Severity Reaction Status Date / Time tetanus toxoid, adsorbed Allergy Mild LOCAL Verified 10/03/21 01:11 REACTION Medications Home Medications Medication Instructions Recorded Confirmed Last Taken ascorbic acid (vitamin C) 1,000 mg 1 gm PO DAILY tab 10/04/19 10/03/21 10/02/21 tablet coenzyme Q10 200 mg capsule 200 mg PO Q OTHER DAY 10/04/19 10/03/21 10/02/21 vitamin B complex 1 tab PO DAILY 01/22/20 10/03/21 10/02/21 potassium chloride 20 mEq 20 meq PO DAILY #90 tab 12/04/20 10/03/21 10/02/21 tablet,extended release(part/cryst) (Klor-Con M) clindamycin phosphate 1 % topical 1 applic TOPICAL DAILY PRN #60 g 04/24/21 10/03/21 Unknown gel levothyroxine 112 mcg tablet 112 mcg PO DAILY #90 tab 07/10/21 10/03/21 10/02/21 warfarin 5 mg tablet 5 mg PO .COMPLEX #90 tab 07/26/21 10/03/21 10/01/21 metoprolol tartrate 50 mg tablet 50 mg PO BID #180 tab 07/27/21 10/03/21 10/02/21 08:00 triamterene 75 1 tab PO DAILY #90 tab 07/27/21 10/03/21 10/02/21 mg-hydrochlorothiazide 50 mg tablet Active Medications Generic Name Dose Route Start Last Admin Trade Name Freq PRN Reason Stop Dose Admin Lactated Ringer's 1,000 mls @ 125 mls/hr 10/03/21 09:48 10/03/21 12:10 Lr IV 10/04/21 01:47 125 mls/hr .Q8H DANIELE Administration Levothyroxine Sodium 112 mcg 10/03/21 09:48 10/03/21 12:30 Levothyroxine Sodium 112 Mcg Tablet PO 11/02/21 09:47 112 mcg DAILYBB DANIELE Administration Metoprolol Tartrate 50 mg 10/03/21 09:48 10/03/21 12:30 Metoprolol Tartrate 50 Mg Tab PO 11/02/21 09:47 50 mg BID DANIELE Administration NPO Date Last Intake of Fluids: 10/03/21 Time Last Intake of Fluids: 01:00 Date Last Intake of Solids: 10/02/21 Time Last Intake of Solids: 14:00 Past Medical History Medical History Atrial fibrillation Dyslipidemia Hypertension Hypothyroidism Migraine Osteoarthritis Umbilical hernia Vertigo Past Family History Family History Grandmother (Maternal) Myocardial infarction Grandfather (Paternal) Myocardial infarction Uncle Esophageal cancer Mother Atrial fibrillation Hypertension Osteoarthritis Kidney disease Aunt Breast cancer Colorectal cancer Denies family history of Ovarian cancer Prostate cancer Lung cancer Past Surgical History Surgical History H/O wisdom tooth extraction S/P hysterectomy S/P thyroidectomy S/P TKR (total knee replacement) (11/08/14) Left S/P tonsillectomy Social History Smoking Status: Never smoker Hx Alcohol Use: No Hx Substance Use: No Physical Exam Vital Signs Last Vital Signs Temp 36.6 C 10/03/21 15:12 Pulse 96 H 10/03/21 15:30 Resp 16 10/03/21 15:30 BP 116/53 L 10/03/21 15:30 Pulse Ox 100 10/03/21 15:30 Testing Laboratory Results 10/03/21 00:32 10/03/21 00:32 PT 19.2 Seconds (9.0-12.0) H 10/03/21 00:32 INR 2.0 (0.9-1.1) H 10/03/21 00:32 Electrocardiogram Date: 11/02/21 DICTATED BY:Nehemiah Maria MD Test Reason : Blood Pressure : / mmHG Vent. Rate : 105 BPM Atrial Rate : 127 BPM P-R Int : 000 ms QRS Dur : 084 ms QT Int : 346 ms P-R-T Axes : 000 -01 001 degrees QTc Int : 457 ms Poor data quality, interpretation may be adversely affected Atrial fibrillation with rapid ventricular response Anterior infarct (cited on or before 03-OCT-2021) Abnormal ECG When compared with ECG of 22-JAN-2020 11:46, No significant change was found Confirmed by Nehemiah Maria ([id number]) on 10/03/2021 10:57:31 AM Referred By: REFERRED SELF Confirmed By:Dionisio Maria Signed By: 10/03/21 1057
--- NOTE | 2021-10-03 16:51 | Cardiology Consultation ---
Date of Consultation October 03, 2021 Assessment & Plan (1) Atrial fibrillation: 1. Atrial fibrillation: Generally asymptomatic. Also good rate control on her current medical regimen. Somewhat elevated rates given her acute illness. However, no symptoms. She has elected to stay on warfarin rather than a novel agent. 2. Preoperative evaluation: She has a history of good exercise tolerance. She did not report symptoms of cardiovascular disease associated with activity. Her examination is also benign with the exception of rate controlled atrial fibrillation. I do not believe she requires any additional cardiovascular testing prior to the proposed procedure. The patient did receive vitamin K to reverse her anticoagulation. Warfarin should be resumed post surgery as soon as she is able to take pills. Standard cardiovascular precautions apply which involve limiting blood loss, avoiding significant anemia, avoiding hypoxia, avoiding significant hypertension or hypotension, and avoiding sustained high heart rates History of Present Illness Reason for Consultation: Preoperative cardiovascular evaluation Requesting Physician: Vini Attending Physician: Beth Berman MD History of Present Illness The patient is a 70-year-old woman with a history of permanent atrial fibrillation who presented with symptoms of cholecystitis. She is scheduled for a laparoscopic cholecystectomy tomorrow. Patient states that for many years she has suffered from atrial fibrillation, initially paroxysmal and now permanent. She believes this was precipitated by hyperthyroidism many years ago. In general she is not bothered by the arrhythmia. Rarely she will note some fluttering. This appears to be with higher heart rates and significant exertion. Otherwise, no sense of palpitation. She is an active individual who is able to mow her lawn and shovel snow without limitation. She denies any exertional dyspnea or chest discomfort. If she has some limitation with activity tends to be related to arthritis or back pain. She denies any orthopnea or paroxysmal nocturnal dyspnea. She has occasional episodes of dizziness that she feels is vertigo. This tends to be exacerbated by certain weather conditions intense respond to meclizine. She has not suffered syncope. No lower extremity edema. Currently feeling well. Some right upper quadrant discomfort. Allergies Allergy/AdvReac Type Severity Reaction Status Date / Time tetanus toxoid, adsorbed Allergy Mild LOCAL Verified 10/03/21 01:11 REACTION Home Medications Medication Instructions Recorded Confirmed Type ascorbic acid (vitamin C) 1,000 mg 1 gm PO DAILY tab 10/04/19 10/03/21 History tablet coenzyme Q10 200 mg capsule 200 mg PO Q OTHER DAY 10/04/19 10/03/21 History vitamin B complex 1 tab PO DAILY 01/22/20 10/03/21 History potassium chloride 20 mEq 20 meq PO DAILY #90 tab 12/04/20 10/03/21 Rx tablet,extended release(part/cryst) (RufusCon M) clindamycin phosphate 1 % topical 1 applic TOPICAL DAILY PRN #60 g 04/24/21 10/03/21 Rx gel levothyroxine 112 mcg tablet 112 mcg PO DAILY #90 tab 07/10/21 10/03/21 Rx warfarin 5 mg tablet 5 mg PO .COMPLEX #90 tab 07/26/21 10/03/21 Rx metoprolol tartrate 50 mg tablet 50 mg PO BID #180 tab 07/27/21 10/03/21 Rx triamterene 75 1 tab PO DAILY #90 tab 07/27/21 10/03/21 Rx mg-hydrochlorothiazide 50 mg tablet Patient History Medical History Atrial fibrillation Dyslipidemia Hypertension Hypothyroidism Migraine Osteoarthritis Umbilical hernia Vertigo Surgical History H/O wisdom tooth extraction S/P hysterectomy S/P thyroidectomy S/P TKR (total knee replacement) (11/08/14) Left S/P tonsillectomy Family History Grandmother (Maternal) Myocardial infarction Grandfather (Paternal) Myocardial infarction Uncle Esophageal cancer Mother Atrial fibrillation Hypertension Osteoarthritis Kidney disease Aunt Breast cancer Colorectal cancer Denies family history of Ovarian cancer Prostate cancer Lung cancer Social History Smoking Status: Never smoker Second Hand Exposure: Yes; Hx Alcohol Use: No Hx Substance Use: No Preferred Language: Tajik Communication Ability: Effective Visual Impairment: No Limitations Hearing Ability: Normal Math And Science Instructor Required: No Beliefs That Will Affect Care: None marital status: Single Current Living Situation: Alone current occupational status: retired current occupation: nurse Feels Safe at Home: Yes Childhood Exposure to Second-Hand Smoke: Yes Diet Comment: regular caffeine: Yes (coffee tea) during the past year weight has: remained stable Dental Care, Regularly: Yes Physical Activity Frequency: 3-4 Times per Week Physical Activity Frequency Comment: general house work, exercise for legs Seatbelt Use: always Sunscreen Use: No Review of Systems Review of Systems: Per HPI. Physical Exam Physical Exam: She is alert and oriented x3. Mood affect appear normal. She answered all questions appropriately. Obese HEENT: Sclerae are anicteric. Pupils are equal and reactive to light and accommodation. Extraocular movements were intact. Neuro: Cranial nerves intact Neck: Well-healed thyroidectomy scar Lungs: Lungs are clear to auscultation bilaterally. There are no rales wheezes or rhonchi. She has normal respiratory effort without use of accessory muscles. There is normal pulmonary excursion. Cardiac: The rhythm was irregular. S1 and S2 were normal. There are no murmurs on examination. The PMI was not markedly displaced on palpation. Abdomen: Obese Extremities: Patient has bilateral radial pulses that are equal in intensity. There is no evidence cyanosis or clubbing. There was no evidence of significant peripheral edema bilaterally. Skin: There are no rashes noted on examination today. Results & Data ([facility]) Vital Signs (Past 12 Hours) Vital Signs Temp Pulse Pulse Resp BP BP Pulse Ox 10/03/21 16:00 89 16 110/70 94 10/03/21 15:50 87 16 100/56 L 95 10/03/21 15:40 37.4 C 91 H 20 115/47 L 100 10/03/21 15:30 96 H 16 116/53 L 100 10/03/21 15:20 90 16 109/61 100 10/03/21 15:12 36.6 C 91 H 16 112/44 L 98 10/03/21 13:04 37.5 C 95 H 18 135/80 96 10/03/21 10:00 36.9 C 87 22 127/73 95 10/03/21 08:28 155 H 174/98 H 10/03/21 05:00 114/73 93 Laboratory Results Abnormal Lab Results 10/03/21 10/03/21 10/03/21 00:32 00:32 00:32 WBC 22.38 H RBC 4.73 Hgb 14.8 Hct 42.8 MCV 90.5 MCH 31.3 MCHC 34.6 RDW Std Deviation 45.3 RDW Coeff of Linnette 13.7 Plt Count 227 MPV 10.3 Immature Gran % (Auto) 0.4 Neut % (Auto) 95.0 Lymph % (Auto) 2.5 Luce % (Auto) 2.1 Eos % (Auto) 0.0 Baso % (Auto) 0.0 Neut # (Auto) 21.25 H Lymph # (Auto) 0.56 L Luce # (Auto) 0.48 Eos # (Auto) 0.00 Baso # (Auto) 0.01 Immature Gran # (Auto) 0.08 H PT 19.2 H INR 2.0 H Sodium 133 L Potassium 2.8 L Chloride 97 L Carbon Dioxide 22 Anion Gap 14.0 H BUN 13 Creatinine 0.96 Est Cr Clr Drug Dosing Not Reportable Est GFR ( Amer) 69.9 Est GFR (Non-Af Amer) 60.3 BUN/Creatinine Ratio 13.9 Glucose 106 H Calcium 9.1 Total Bilirubin 2.4 H AST 198 H ALT 99 H Alkaline Phosphatase 76 Troponin I < 0.015 Total Protein 7.5 Albumin 3.4 Globulin 4.1 H Albumin/Globulin Ratio 0.8 L Lipase 82 COVID-19 Eval Order SARS-CoV-2 (PCR) 10/03/21 10/03/21 01:45 01:45 WBC RBC Hgb Hct MCV MCH MCHC RDW Std Deviation RDW Coeff of Linnette Plt Count MPV Immature Gran % (Auto) Neut % (Auto) Lymph % (Auto) Luce % (Auto) Eos % (Auto) Baso % (Auto) Neut # (Auto) Lymph # (Auto) Luce # (Auto) Eos # (Auto) Baso # (Auto) Immature Gran # (Auto) PT INR Sodium Potassium Chloride Carbon Dioxide Anion Gap BUN Creatinine Est Cr Clr Drug Dosing Est GFR ( Amer) Est GFR (Non-Af Amer) BUN/Creatinine Ratio Glucose Calcium Total Bilirubin AST ALT Alkaline Phosphatase Troponin I Total Protein Albumin Globulin Albumin/Globulin Ratio Lipase COVID-19 Eval Order Covid19 at [facility] SARS-CoV-2 (PCR) NEGATIVE Diagnostic Findings With possible common bile duct stone ECG Additional Comments: EKG obtained today revealed atrial fibrillation and a rapid ventricular response. Poor R-wave progression in the precordial leads. Unchanged from 2019 PG Care Time/CCT Total # of Minutes Spent Total Time Spent with Patient: Total time spent is greater than 50% in coordination of care (as documented) at patient's floor/unit and/or counseling patient: Coding Level of Care Code 31024 Initial Inpt Care Lvl 3 Diagnoses Atrial fibrillation I48.91
--- NOTE | 2021-10-03 17:08 | Fluoroscopy Report ---
FL ERCP biliary ductal CLINICAL HISTORY: Fluoroscopic assistance for ERCP.Right upper quadrant pain. COMPARISON STUDY: Abdominal ultrasound 10/03/2021. FLUOROSCOPY TIME: 38 seconds. FINDINGS: 5 fluoroscopic spot images of the right or quadrant demonstrate cannulation of the ampulla with contrast injected into the common bile duct. A balloon sweep was performed. This is followed by placement of a common bile duct stent which appears in good position. IMPRESSION: Fluoroscopic assistance provided for ERCP as described above. ACT 112: Negative or not required by law. Electronically signed by: Nabil La M.D. 10/03/2021 5:06 PM
[2021-10-03 17:26] LABS: INR 1.6 (0.9-1.1); Prothrombin Time 15.5 Seconds (9.0-12.0)
[2021-10-03] MEDS: PIPERACILLIN/TAZOBACTAM 4.5 GM in DEXTROSE 5% 100 ML IV SCH (18:46)
[2021-10-04] MEDS: PIPERACILLIN/TAZOBACTAM 4.5 GM in DEXTROSE 5% 100 ML IV SCH ×4 (00:59→23:40)
[2021-10-04] MEDS: LEVOTHYROXINE SODIUM 112 MCG TABLET PO SCH (06:05)
[2021-10-04 06:27] LABS: Basophils # (auto) 0.01 K/uL (0-0.2); Basophils % (auto) 0.1 %; Eosinophils # (auto) 0.01 K/uL (0-0.5); Eosinophils % (auto) 0.1 %; Hemoglobin 12.6 g/dL (12.0-16.0); Immature Granulocytes # (auto) 0.03 K/uL (0.00-0.02); Immature Granulocytes % (auto) 0.2 %; Lymphocytes # (auto) 0.73 K/uL (1.2-3.4); Lymphocytes % (auto) 5.3 %; Mean Corpuscular Hemoglobin 31.3 pg (25-34); Mean Corpuscular Hgb Conc 34.1 g/dL (32-36); Mean Corpuscular Volume 91.8 fL (80-100); Mean Platelet Volume 10.7 fL (7.4-10.4); Monocytes # (auto) 0.38 K/uL (0.11-0.59); Monocytes % (auto) 2.8 %; Neutrophils # (auto) 12.55 K/uL (1.4-6.5); Neutrophils % (auto) 91.5 %; Platelet Count 210 K/uL (130-400); RDW Coefficient of Variation 14.7 % (11.5-14.5); RDW Standard Deviation 49.9 fL (36.4-46.3); Red Blood Count 4.03 M/uL (4.2-5.4); White Blood Count 13.71 K/uL (4.8-10.8)
[2021-10-04 06:38] LABS: INR 1.4 (0.9-1.1); Prothrombin Time 13.5 Seconds (9.0-12.0)
[2021-10-04 06:55] LABS: Albumin Level 2.6 gm/dl (3.4-5.0); BUN Creatinine Ratio 12.3 (10-20); Bilirubin Direct 1.7 mg/dl (0-0.2); Calcium 8.6 mg/dl (8.5-10.1); Creatinine Clr Calc Pharmacy 70.9 ml/min; Est GFR (African American) 79.9 ml/min; Est GFR (Non-African American) 68.9 ml/min; Potassium 3.6 mmol/L (3.5-5.1)
[2021-10-04 06:58] LABS: Bilirubin,Total 2.7 mg/dl (0.2-1); Total Protein 6.6 gm/dl (6.4-8.2)
[2021-10-04] MEDS: METOPROLOL TARTRATE 50 MG TAB PO SCH ×2 (08:15→20:54)
--- NOTE | 2021-10-04 09:03 | Gastroenterology Progress Note ---
Date of Service October 04, 2021 Assessment & Plan (1) Acute cholecystitis: Plan: 70 year old female admitted w/ pain, nausea, imaging concerning for gallstones, acute cholecystitis, biliary dilation w/ elevated LFTs raising concern for CBD stone/sludge. S/P ERCP w/ stone extraction, sphincterotomy and extraction, stent placed Continue ABX for 10 days Continue supportive measure and pain control CCY per general surgery team Repeat ERCP in 6-8 weeks for stent removal GI will sign off. Thank you for allowing us to participate in the care of this patient. Please call with any acute changes, questions or concerns. Please see addendum below with additional recommendation from my supervising physician. (2) Choledocholithiasis: Admission and Anticipated Discharge Date Admission Date: October 03, 2021 Supervising Physician Co-Signing Physician Notes I performed a history and physical examination of the patient today, including specifically on physical exam - soft abdomen. I have discussed the patient's management with the advanced practitioner. Please refer to the nurse practitioner's note for the documented findings and plan of care. Going for Lap kenyatta today. Monitor LFTs Recall GI if needed. Subjective Feeling well. Pain improved. NPO for CCY today. No concerns. Review of Systems Review of Systems: All systems reviewed & are unremarkable except as noted in HPI & below Physical Exam Constitutional: WD/WN, vitals as above Neck: trachea midline, no thyromegaly Respiratory: normal respiratory effort, lungs clear to auscultation Cardiovascular: Rate/Rhythm: regular rate Gastrointestinal (Abdomen): normal bowel sounds, soft, nontender, no hepatosplenomegaly Skin: no rashes, warm and dry Results & Data ([facility]) Vital Signs (Past 12 Hours) Vital Signs Temp Pulse Resp BP Pulse Ox 10/04/21 07:24 36.7 C 75 16 113/73 95 10/03/21 23:03 36.7 C 73 16 101/67 96 Laboratory Results 10/04/21 10/04/21 10/04/21 Range/Units 05:52 05:52 05:52 WBC 13.71 H (4.8-10.8) K/uL RBC 4.03 L (4.2-5.4) M/uL Hgb 12.6 (12.0-16.0) g/dL Hct 37.0 (37-47) % MCV 91.8 (80-100) fL MCH 31.3 (25-34) pg MCHC 34.1 (32-36) g/dL RDW Std Deviation 49.9 H (36.4-46.3) fL RDW Coeff of Linnette 14.7 H (11.5-14.5) % Plt Count 210 (130-400) K/uL MPV 10.7 H (7.4-10.4) fL Immature Gran % (Auto) 0.2 % Neut % (Auto) 91.5 % Lymph % (Auto) 5.3 % [place] % (Auto) 2.8 % Eos % (Auto) 0.1 % Baso % (Auto) 0.1 % Neut # (Auto) 12.55 H (1.4-6.5) K/uL Lymph # (Auto) 0.73 L (1.2-3.4) K/uL [place] # (Auto) 0.38 (0.11-0.59) K/uL Eos # (Auto) 0.01 (0-0.5) K/uL Baso # (Auto) 0.01 (0-0.2) K/uL Immature Gran # (Auto) 0.03 H (0.00-0.02) K/uL PT 13.5 H (9.0-12.0) Seconds INR 1.4 H (0.9-1.1) Sodium 139 (136-145) mmol/L Potassium 3.6 (3.5-5.1) mmol/L Chloride 104 (98-107) mmol/L Carbon Dioxide 29 (21-32) mmol/L Anion Gap 6.0 (3-11) BUN 11 (7-18) mg/dl Creatinine 0.86 (0.6-1.2) mg/dl Est Cr Clr Drug Dosing 70.9 ml/min Est GFR ( Amer) 79.9 ml/min Est GFR (Non-Af Amer) 68.9 ml/min BUN/Creatinine Ratio 12.3 (10-20) Glucose 140 H (70-99) mg/dl Calcium 8.6 (8.5-10.1) mg/dl Total Bilirubin 2.7 H (0.2-1) mg/dl Direct Bilirubin 1.7 H (0-0.2) mg/dl AST 146 H (15-37) U/L ALT 176 H (12-78) U/L Alkaline Phosphatase 60 (45-117) U/L Total Protein 6.6 (6.4-8.2) gm/dl Albumin 2.6 L (3.4-5.0) gm/dl 10/03/21 10/03/21 Range/Units 17:02 17:02 WBC (4.8-10.8) K/uL RBC (4.2-5.4) M/uL Hgb (12.0-16.0) g/dL Hct (37-47) % MCV (80-100) fL MCH (25-34) pg MCHC (32-36) g/dL RDW Std Deviation (36.4-46.3) fL RDW Coeff of Linnette (11.5-14.5) % Plt Count (130-400) K/uL MPV (7.4-10.4) fL Immature Gran % (Auto) % Neut % (Auto) % Lymph % (Auto) % [place] % (Auto) % Eos % (Auto) % Baso % (Auto) % Neut # (Auto) (1.4-6.5) K/uL Lymph # (Auto) (1.2-3.4) K/uL [place] # (Auto) (0.11-0.59) K/uL Eos # (Auto) (0-0.5) K/uL Baso # (Auto) (0-0.2) K/uL Immature Gran # (Auto) (0.00-0.02) K/uL PT 15.5 H (9.0-12.0) Seconds INR 1.6 H (0.9-1.1) Sodium (136-145) mmol/L Potassium 3.9 D (3.5-5.1) mmol/L Chloride (98-107) mmol/L Carbon Dioxide (21-32) mmol/L Anion Gap (3-11) BUN (7-18) mg/dl Creatinine (0.6-1.2) mg/dl Est Cr Clr Drug Dosing ml/min Est GFR ( Amer) ml/min Est GFR (Non-Af Amer) ml/min BUN/Creatinine Ratio (10-20) Glucose (70-99) mg/dl Calcium (8.5-10.1) mg/dl Total Bilirubin (0.2-1) mg/dl Direct Bilirubin (0-0.2) mg/dl AST (15-37) U/L ALT (12-78) U/L Alkaline Phosphatase (45-117) U/L Total Protein (6.4-8.2) gm/dl Albumin (3.4-5.0) gm/dl
[2021-10-04] MEDS ORDERED: PROPOFOL IV EMULSION 10 MG/ML 20 ML VIAL IV ONE (13:01)
[2021-10-04] MEDS ORDERED: NEOSTIGMINE METHYLSULFATE 1 MG/ML 10ML VIAL ONE (13:01)
[2021-10-04] MEDS ORDERED: fentaNYL citrate 100 MCG/2 ML VIAL ONE ×2 (13:01→14:15)
[2021-10-04] MEDS ORDERED: ONDANSETRON INJ 2 MG/ML 2 ML VIAL ONE (13:01)
[2021-10-04] MEDS ORDERED: ROCURONIUM BROMIDE 10 MG/ML 5 ML VIAL IV ONE (13:01)
[2021-10-04] MEDS ORDERED: MIDAZOLAM HCL 1 MG/ML 2ML VIAL ONE (13:01)
[2021-10-04] MEDS ORDERED: DEXAMETHASONE SOD INJ 4 MG/ML VIAL ONE (13:01)
[2021-10-04] MEDS ORDERED: LIDOCAINE 2% 2 ML VIAL/AMP(20MG/ML) INFIL ONE (13:01)
[2021-10-04] MEDS ORDERED: GLYCOPYRROLATE 0.2 MG/ML VIAL ONE (13:01)
[2021-10-04] MEDS ORDERED: LIDOCAINE 1% LOCAL 20 ML VIAL ONE (13:27)
[2021-10-04] MEDS ORDERED: BUPIVACAINE 0.5 % 5 MG/1 ML MPF 30ML VIAL ONE (13:27)
[2021-10-04] MEDS ORDERED: BACITRACIN OINT 15 GM TUBE ONE (13:27)
[2021-10-04] MEDS ORDERED: ceFAZolin 2000MG 2,000 MG/15 ML SYR IV ONE (13:28)
--- NOTE | 2021-10-04 13:28 | History & Physical Bridge Note ---
Date of Service October 04, 2021 History & Physical Bridge Note I have examined the patient, reviewed the History & Physical and in the interval since the performance of the History & Physical I have noted the following changes of clinical significance: no changes noted Supervising Physician Co-Signing Physician Notes I performed a history and physical examination of the patient today, including specifically on physical exam - soft abdomen. I have discussed the patient's management with the advanced practitioner. Please refer to the nurse practitioner's note for the documented findings and plan of care. Going for Lap kenyatta today. Monitor LFTs Recall GI if needed.
[2021-10-04] MEDS ORDERED: KETOROLAC 30 MG/ML VIAL IV PRN (13:38)
[2021-10-04] MEDS ORDERED: fentaNYL citrate 100 MCG/2 ML VIAL IV PRN (13:38)
[2021-10-04] MEDS ORDERED: ATROPINE SULFATE 0.1 MG/ML 10ML SYR IV PRN (13:38)
[2021-10-04] MEDS ORDERED: ONDANSETRON INJ 2 MG/ML 2 ML VIAL IV PRN (13:38)
[2021-10-04] MEDS ORDERED: PROMETHAZINE HCL 6.25 MG in SODIUM CHLORIDE 0.9% 50 ML IV PRN (13:38)
[2021-10-04] MEDS ORDERED: Nursing to Pharmacy Communication SCH (13:45)
[2021-10-04] MEDS: SURGICEL ABSORB HEMOSTAT 2IN X 14IN TOP ONE ×2 (14:53→14:58)
[2021-10-04] MEDS ORDERED: SUGAMMADEX SODIUM 200 MG/2 ML VIAL IV ONE (14:57)
--- NOTE | 2021-10-04 15:10 | Post Operative Brief Note ---
Immediate Post Op Note v1 Date of Surgery October 04, 2021 Pre & Post Diagnosis Operation Date: 10/03/21 08:20 Pre-Op Diagnosis: Acute cholangitis Post-Op Diagnosis: Acute cholangitis Operation Date: 10/04/21 11:20 Pre-Op Diagnosis: Acute Cholecystitis, Cholelithiasis Post-Op Diagnosis: Acute Cholecystitis, cholelithiasis I identified the patient and participated in the time-out.: Yes Procedure Operation Date: 10/03/21 08:20 Actual Procedures p Endoscopic Ultrasonography Upper, esophagogastroduodenoscopy(Not Applicable) - Martir Chatman MD s Endoscopic Retrograde Cholangiopancreatogram(Not Applicable) - Martir Chatman MD Operation Date: 10/04/21 11:20 Actual Procedures p Laparoscopic Cholecystectomy, Ventral Hernia Repair(Not Applicable) - Vini Carl MD Surgeon Vini Carl MD Protection Specialist HEATHER Parks Estimated Blood Loss 20 Findings Consistent with Post-Op Diagnosis Fluids 1000ml Specimens gallbladder Anesthesia Type General Complications none Disposition Accompanied Patient To Recovery: Yes
--- NOTE | 2021-10-04 15:48 | Anesthesiology Progress Note ---
Date of Service October 04, 2021 Anesthesia Post Procedure Vital Signs Vital Signs: Temp Pulse Pulse Resp BP Pulse Ox 10/04/21 15:40 70 13 153/66 H 100 10/04/21 15:31 36.2 C L 78 12 143/81 H 95 10/04/21 13:23 36.5 C 75 18 113/58 L 96 10/04/21 07:24 36.7 C 75 16 113/73 95 10/03/21 23:03 36.7 C 73 16 101/67 96 10/03/21 20:33 105 H 120/78 10/03/21 16:00 89 16 110/70 94 10/03/21 15:50 87 16 100/56 L 95 Pain Intensity Right Upper Abdomen: Pain Intensity: 0 Transfer of Care Handoff Completed per policy Notes Mental Status: alert / awake / arousable and participated in evaluation Patient Amnestic to Procedure: Yes Nausea / Vomiting: adequately controlled Pain: adequately controlled Airway Patency, RR, SpO2: stable & adequate BP & HR: stable & adequate Hydration State: stable & adequate Anesthetic Complications: no major complications apparent
[2021-10-04] MEDS ORDERED: NON-FORMULARY MEDICATION (Coenzyme Q10 200 mg capsule) PO SCH (16:31)
[2021-10-04] MEDS ORDERED: oxyCODONE/ACETAMINOPHEN 5mg/325mg TAB PO PRN (16:31)
[2021-10-04] MEDS ORDERED: COUGH DROP (SUGAR FREE) LOZ 24 LOZ/1 BOX BUCCAL ONE (17:42)
--- NOTE | 2021-10-04 17:51 | Hospitalist Progress Note ---
Date of Service October 04, 2021 Assessment & Plan (1) Acute cholecystitis: Plan: 70yo female with history of AF on Coumadin anticoagulation, HTN, HLP presenting with RUQ pain. Pain similar to prior biliary pain. She was afebrile but labs significant for neutrophil predominant leukocytosis with WBC=22.38 with bands. Elevation of QXC=577, ALT=99 and Tbili=2.4. RUQ US with distended gallbladder with dependent 9mm stone and mild pericholecystic fluid. She was admitted and had urgent ERCP on 10/03 after discussion with GI-had choledocholithiasis with biliary stent placement and sphincterotomy Her Coumadin was reversed on 10/03 with 10 mg of IV vitamin K -Now status post cholecystectomy on 10/04 -Continue Zosyn 3.375gm IV q 8 and convert to p.o. Augmentin on discharge for total of 10 days -Tylenol and Percocet as needed PRN pain -Zofran PRN nausea -Bowel regimen with colace and Miralax PRN -General Surgery and gastroenterology consultations appreciated Remains afebrile leukocytosis improving, LFTs remain elevated but stable from previous -Continue to hold Coumadin until the afternoon of 10/05 -Repeat CBC, LFTs and chemistry in AM-expect LFTs will continue to trend downward -Will need repeat ERCP in 6-8 weeks to remove biliary stent -Advance diet as tolerated (2) Ascending cholangitis: Plan: As above (3) Choledocholithiasis: Plan: As above (4) Hypokalemia: Plan: K=2.8 on arrival and now normalized after replacement Patient is on daily Triamterene/HCTZ with K supplementation outpatient -Okay to restart triamterene/HCTZ -Follow BMP (5) Atrial fibrillation: Plan: Mildly elevated HR in setting of pain and possible infection upon arrival which is now improved Anticoagulated on Coumadin which has been reversed for surgery as above -Continue Metoprolol 50mg po BID -Continue to hold Coumadin but can restart on 10/05 -Monitor INR daily (6) Hypertension: Plan: Blood pressure well controlled to mildly elevated now after holding triamterene HCTZ -Continue metoprolol 50mg po BID -Restart Triamterene-HCTZ in the morning -Continue to monitor (7) Hypothyroidism: Plan: Chronic. TSH 0.2 in 05/2021 -Continue Synthroid 112 mcg po daily Plan: Ppx - SCDs Code - DNR/DNI per discussion with patient DIspo -continued stance medical/surgical, but possible discharge home tomorrow Admission and Anticipated Discharge Date Admission Date: October 03, 2021 Subjective Patient had cholecystectomy today. She is doing very well afterwards and is tolerating clear liquids diet for dinner. She only has some pain in the abdomen at surgical sites with coughing. Has a sore throat from ET tube. Denies chest pains or shortness of breath Review of Systems Review of Systems: All systems reviewed & are unremarkable except as noted in HPI & below Physical Exam Constitutional: WD/WN, vitals as above Eyes: PERRL, conjunctivae normal, anicteric sclerae Neck: trachea midline, no thyromegaly Respiratory: normal respiratory effort, lungs clear to auscultation Cardiovascular: Rate/Rhythm: regular rate and + irregularly irregular Heart Sounds: no murmur Extremities: no edema Chest (Breasts): Chest: normal inspection of chest Gastrointestinal (Abdomen): Inspection/Auscultation: normal bowel sounds; + abdomen abnormal to inspection (Multiple laparoscopic incisions with dressings clean dry and intact ) and abdomen not distended Percussion/Palpation: abdomen soft; abdomen nontender Musculoskeletal: Extremities: extremities normal to inspection; no cyanosis and no clubbing Skin: no rashes, warm and dry Neurologic: moves all extremities and awake; no focal motor deficits Psychiatric: A+Ox3, euthymic affect Lymphatic: no lymphedema Results & Data Results & Data ([facility]) Vital Signs (Past 12 Hours) Vital Signs Temp Pulse Pulse Pulse Resp BP Pulse Ox 10/04/21 17:41 36.4 C L 74 16 151/81 H 97 10/04/21 17:00 36.4 C L 84 16 142/84 H 98 10/04/21 16:34 36.4 C L 75 16 116/54 L 97 10/04/21 16:10 36.1 C L 76 17 114/73 99 10/04/21 16:00 68 20 135/72 99 10/04/21 15:50 68 15 149/74 H 99 10/04/21 15:40 70 13 153/66 H 100 10/04/21 15:31 36.2 C L 78 12 143/81 H 95 10/04/21 13:23 36.5 C 75 18 113/58 L 96 10/04/21 07:24 36.7 C 75 16 113/73 95 Laboratory Results 10/04/21 10/04/21 10/04/21 Range/Units 05:52 05:52 05:52 WBC 13.71 H (4.8-10.8) K/uL RBC 4.03 L (4.2-5.4) M/uL Hgb 12.6 (12.0-16.0) g/dL Hct 37.0 (37-47) % MCV 91.8 (80-100) fL MCH 31.3 (25-34) pg MCHC 34.1 (32-36) g/dL RDW Std Deviation 49.9 H (36.4-46.3) fL RDW Coeff of Linnette 14.7 H (11.5-14.5) % Plt Count 210 (130-400) K/uL MPV 10.7 H (7.4-10.4) fL Immature Gran % (Auto) 0.2 % Neut % (Auto) 91.5 % Lymph % (Auto) 5.3 % Maries % (Auto) 2.8 % Eos % (Auto) 0.1 % Baso % (Auto) 0.1 % Neut # (Auto) 12.55 H (1.4-6.5) K/uL Lymph # (Auto) 0.73 L (1.2-3.4) K/uL Maries # (Auto) 0.38 (0.11-0.59) K/uL Eos # (Auto) 0.01 (0-0.5) K/uL Baso # (Auto) 0.01 (0-0.2) K/uL Immature Gran # (Auto) 0.03 H (0.00-0.02) K/uL PT 13.5 H (9.0-12.0) Seconds INR 1.4 H (0.9-1.1) Sodium 139 (136-145) mmol/L Potassium 3.6 (3.5-5.1) mmol/L Chloride 104 (98-107) mmol/L Carbon Dioxide 29 (21-32) mmol/L Anion Gap 6.0 (3-11) BUN 11 (7-18) mg/dl Creatinine 0.86 (0.6-1.2) mg/dl Est Cr Clr Drug Dosing 70.9 ml/min Est GFR ( Amer) 79.9 ml/min Est GFR (Non-Af Amer) 68.9 ml/min BUN/Creatinine Ratio 12.3 (10-20) Glucose 140 H (70-99) mg/dl Calcium 8.6 (8.5-10.1) mg/dl Total Bilirubin 2.7 H (0.2-1) mg/dl Direct Bilirubin 1.7 H (0-0.2) mg/dl AST 146 H (15-37) U/L ALT 176 H (12-78) U/L Alkaline Phosphatase 60 (45-117) U/L Total Protein 6.6 (6.4-8.2) gm/dl Albumin 2.6 L (3.4-5.0) gm/dl PG Care Time/CCT Total # of Minutes Spent Total Time Spent with Patient: Total time spent is greater than 50% in coordination of care (as documented) at patient's floor/unit and/or counseling patient: Coding Level of Care Code 49609 Subseq Hosp Care Lvl 3 Diagnoses Acute cholecystitis K81.0 Hypokalemia E87.6 Atrial fibrillation I48.20 Atrial fibrillation type: unspecified chronic Hypertension I10 Hypothyroidism E03.9 Choledocholithiasis K80.50 Ascending cholangitis K83.09 (1) Atrial fibrillation Atrial fibrillation type: unspecified chronic Qualified Code(s): I48.20 - Chronic atrial fibrillation, unspecified
[2021-10-04] MEDS ORDERED: diphenhydrAMINE Capsule 25 MG CAP PO ONE (21:15)
[2021-10-04] MEDS ORDERED: LORATADINE 10 MG TAB PO ONE (21:30)
--- NOTE | 2021-10-04 23:49 | Operative Report (OR) ---
DATE OF SERVICE: 10/04/2021 PREOPERATIVE DIAGNOSES: Acute cholecystitis, cholelithiasis. POSTOPERATIVE DIAGNOSES: Acute cholecystitis, cholelithiasis. OPERATION: Laparoscopic cholecystectomy. SURGEON: Vini Carl MD. CABLE TOOL OPERATOR: Ely Steve PA-C. ANESTHESIA: General. ESTIMATED BLOOD LOSS: About 20 mL. FINDINGS: Acute cholecystitis with cholelithiasis. COMPLICATIONS: None. INDICATIONS FOR THE PROCEDURE: This is a 70-year-old female who was admitted to the hospital for acu te cholecystitis, cholelithiasis and patient is postop ERCP and removal of common bile duct stone. I recommended to do laparoscopic cholecystectomy, possible open, possible cholangiogram. I did talk to the patient about the benefit, risk, alternate procedure. I indicated the risks may include, but no t limited to, such as bleeding, infection, injury to other organs, injury to common bile duct, bile l eak, myocardial infarction, DVT, stroke, even . The patient understands and she signed informed consent and I answered all questions. DETAILS OF PROCEDURE: After we identified the patient and verified the procedure, we brought the pat ient to the OR, put the patient in the supine position. The patient received SCD on bilateral legs t o prevent DVT. Also, patient received 3.375 grams of Zosyn IV for prophylactic antibiotic. The chavez ent received general anesthesia without difficulty. The abdomen was prepped and draped in routine st erile fashion. After timeout, I injected the local anesthesia by using 1% lidocaine mixed with 0.5% Marcaine just above the umbilicus. I then made a small incision just above the umbilicus, opened fas sendy, opened peritoneum. Under direct vision, put a Golden trocar in, connected to CO2 to create pneu moperitoneum, flow rate at 6 liters per minute, pressure not more than 14 mmHg. Once we got a nice pneumoperitoneum, we put a camera in, looked around the abdomen. Normal finding o n the liver; however, the gallbladder showed significant inflammation, gallbladder wall thickening an d edema, confirming the diagnosis of acute cholecystitis. Once we confirmed the diagnosis, I put ano ther two 5 mm trocars in the right upper quadrant and one 11 trocar in the epigastric area. Once all trocars in, we used the grasper to hold the base of gallbladder, put in the direction to the diaphra gm, another grasper to hold the pouch of gallbladder, put a lateral to explore the triangle of Calot. The cystic duct was identified and mobilized. I put two 10 mm metal clips on the proximal cystic cami t and one on the distal cystic duct, then used a scissor for transection of cystic duct; rechecked, n o bile leak. The cystic artery was identified and mobilized. I put two 10 mm metal clips on the pro ximal cystic artery and one on the distal cystic artery, then used a scissor for transection of cysti c artery, rechecked, no active bleeding. Then, we used the Bovie to take down gallbladder from liver bed. Rechecked, no active bleeding, no bile leak from liver bed. Then, we removed gallbladder thro ugh the catch bag. Then, we reinserted the Golden trocar in, connected to CO2 to create pneumoperitoneum, again looked a round the abdomen, no active bleeding, no bile leak from the liver bed. Then, we removed all trocars under direct vision. No active bleeding from the trocar site. Pneumoperitoneum was released. Then I closed the umbilical incision fascial layer by using 0 Vicryl [id number] x2, closed subcutane ous layer by using 2-0 Vicryl interruptedly, closed skin by using 4-0 Vicryl continuous running, clos ed the epigastric incision fascial layer by using 0 Vicryl [id number] x2, closed subcutaneous la tien by using 2-0 Vicryl interruptedly, closed skin by using 4-0 Vicryl interruptedly, closed another two 5 mm trocar site of skin only by using 4-0 Vicryl. Then, we put the dressing on. The patient tolerated the procedure well. All instrument, needle and sponge counts were correct x2 a t the end of the case. The patient was transferred to recovery room in stable condition. The specim en was sent to pathology. The oncology physician assistant, Ely, is necessary for this procedure. Her role is to hold the camera, expos ure and retraction. Job ID: [id number]
[2021-10-05] MEDS: LEVOTHYROXINE SODIUM 112 MCG TABLET PO SCH (05:57)
[2021-10-05 06:23] LABS: Basophils # (auto) 0.01 K/uL (0-0.2); Basophils % (auto) 0.1 %; Eosinophils # (auto) 0.01 K/uL (0-0.5); Eosinophils % (auto) 0.1 %; Hematocrit (blood only) 36.7 % (37-47); Hemoglobin 12.3 g/dL (12.0-16.0); Immature Granulocytes # (auto) 0.04 K/uL (0.00-0.02); Immature Granulocytes % (auto) 0.3 %; Lymphocytes # (auto) 0.83 K/uL (1.2-3.4); Lymphocytes % (auto) 6.2 %; Mean Corpuscular Hemoglobin 31.1 pg (25-34); Mean Corpuscular Hgb Conc 33.5 g/dL (32-36); Mean Corpuscular Volume 92.9 fL (80-100); Mean Platelet Volume 11.1 fL (7.4-10.4); Monocytes % (auto) 4.5 %; Neutrophils # (auto) 11.88 K/uL (1.4-6.5); Neutrophils % (auto) 88.8 %; Platelet Count 201 K/uL (130-400); RDW Coefficient of Variation 14.6 % (11.5-14.5); Red Blood Count 3.95 M/uL (4.2-5.4); White Blood Count 13.37 K/uL (4.8-10.8)
[2021-10-05 06:56] LABS: INR 1.1 (0.9-1.1); Prothrombin Time 11.3 Seconds (9.0-12.0)
[2021-10-05 07:03] LABS: Albumin Level 2.5 gm/dl (3.4-5.0); BUN Creatinine Ratio 18.8 (10-20); Bilirubin,Total 1.2 mg/dl (0.2-1); Calcium 8.4 mg/dl (8.5-10.1); Creatinine Clr Calc Pharmacy 74.3 ml/min; Est GFR (African American) 84.6 ml/min; Potassium 3.4 mmol/L (3.5-5.1); Total Protein 6.5 gm/dl (6.4-8.2)
[2021-10-05] MEDS: METOPROLOL TARTRATE 50 MG TAB PO SCH (08:36)
[2021-10-05] MEDS: PIPERACILLIN/TAZOBACTAM 4.5 GM in DEXTROSE 5% 100 ML IV SCH (08:36)
[2021-10-05] MEDS ORDERED: POTASSIUM CHLORIDE CRTAB 20 MEQ TABCR PO SCH (09:00)
[2021-10-05] MEDS ORDERED: VITAMIN B COMPLEX TAB PO SCH (09:00)
[2021-10-05] MEDS ORDERED: TRIAMTERENE/HCTZ 37.5/25MG TAB PO SCH (09:00)
[2021-10-05] MEDS ORDERED: ASCORBIC ACID 500 MG TAB PO SCH (09:00)
[2021-10-05] MEDS ORDERED: POTASSIUM CHLORIDE CRTAB 20 MEQ TABCR PO STA (10:13)
--- NOTE | 2021-10-05 10:24 | Surgery Progress Note ---
Date of Service October 05, 2021 Assessment & Plan (1) Acute cholecystitis: Plan: POD # 1 s/p laparoscopic cholecystectomy and ventral hernia repair without mesh, POD # 2 s/p ERCP +stent placement -avss - minimal postop pain, controlled - no n/v - t.bili and lfts improved Plan: Doing well from surgical standpoint regular diet continue ambulation okay to resume Coumadin discharge instructions reviewed and provided f/u surgical office in [address] Carl has seen patient and agrees with above. Admission and Anticipated Discharge Date Admission Date: October 03, 2021 Subjective feeling better minimal abdominal pain, soreness on right side due to coughing throughout night no chest pain or shortness of breath no nausea or vomiting tolerated clear liquids ambulating urinating without difficulty Physical Exam Constitutional: WD/WN, vitals as above + obese Respiratory: normal respiratory effort; no respiratory distress and no labored breathing Gastrointestinal (Abdomen): Inspection/Auscultation: abdomen normal to inspection and + abdominal surgical incision (covered with clean and dry dressings); abdomen not distended Percussion/Palpation: + abdomen tender (mild at incision sites) and abdomen soft; no guarding and abdomen not rigid Skin: no rashes, warm and dry Psychiatric: A+Ox3, euthymic affect Results & Data ([facility]) Vital Signs (Past 12 Hours) Vital Signs Temp Pulse Resp BP Pulse Ox 10/05/21 07:07 36.7 C 68 16 104/68 95 10/05/21 05:58 36.5 C 70 16 129/73 96 10/05/21 03:36 36.5 C 66 16 116/56 L 96 10/04/21 23:44 36.4 C L 72 16 151/84 H 96 Laboratory Results 10/05/21 10/05/21 10/05/21 Range/Units 05:32 05:32 05:32 WBC 13.37 H (4.8-10.8) K/uL RBC 3.95 L (4.2-5.4) M/uL Hgb 12.3 (12.0-16.0) g/dL Hct 36.7 L (37-47) % MCV 92.9 (80-100) fL MCH 31.1 (25-34) pg MCHC 33.5 (32-36) g/dL RDW Std Deviation 50.0 H (36.4-46.3) fL RDW Coeff of Linnette 14.6 H (11.5-14.5) % Plt Count 201 (130-400) K/uL MPV 11.1 H (7.4-10.4) fL Immature Gran % (Auto) 0.3 % Neut % (Auto) 88.8 % Lymph % (Auto) 6.2 % Gordon % (Auto) 4.5 % Eos % (Auto) 0.1 % Baso % (Auto) 0.1 % Neut # (Auto) 11.88 H (1.4-6.5) K/uL Lymph # (Auto) 0.83 L (1.2-3.4) K/uL Gordon # (Auto) 0.60 H (0.11-0.59) K/uL Eos # (Auto) 0.01 (0-0.5) K/uL Baso # (Auto) 0.01 (0-0.2) K/uL Immature Gran # (Auto) 0.04 H (0.00-0.02) K/uL PT 11.3 (9.0-12.0) Seconds INR 1.1 (0.9-1.1) Sodium 136 (136-145) mmol/L Potassium 3.4 L (3.5-5.1) mmol/L Chloride 101 (98-107) mmol/L Carbon Dioxide 28 (21-32) mmol/L Anion Gap 7.0 (3-11) BUN 15 (7-18) mg/dl Creatinine 0.82 (0.6-1.2) mg/dl Est Cr Clr Drug Dosing 74.3 ml/min Est GFR ( Amer) 84.6 ml/min Est GFR (Non-Af Amer) 73.0 ml/min BUN/Creatinine Ratio 18.8 (10-20) Glucose 130 H (70-99) mg/dl Calcium 8.4 L (8.5-10.1) mg/dl Total Bilirubin 1.2 H D (0.2-1) mg/dl Direct Bilirubin Pending AST 96 H (15-37) U/L ALT 151 H (12-78) U/L Alkaline Phosphatase 59 (45-117) U/L Total Protein 6.5 (6.4-8.2) gm/dl Albumin 2.5 L (3.4-5.0) gm/dl
[2021-10-05 10:49] LABS: Bilirubin Direct 0.5 mg/dl (0-0.2)
--- NOTE | 2021-10-05 12:22 | Discharge Summary ---
Date of Service October 05, 2021 Admission HPI Per Admitting Provider Fariha Angeles is a 70yo female with history of AF on Coumadin anticoagulation, HTN, HLP and Hypothyroidism presenting with RUQ pain. Patient reports longstanding history of gallbladder pain dating back to her teenage years. Her episodes are usually brief and self-limiting. This afternoon around 1400 she developed acute RUQ discomfort after eating chips and salsa. The pain was severe, stabbing in nature and radiating into epigastrium and back. She had some associated nausea without vomiting and chills as well. Pain persisted longer than usual which prompted her to come to the ER. Last episode of biliary pain was January 2021 Pain relieved with morphine. Now with dull aching pain in RUQ, much improved No additional complaints at this time In the ER patient afebrile, HD stable, nontoxic in appearance. ER Course: Morphine, Zosyn, KCl, NSS Principal Diagnosis Ascending cholangitis, choledocholithiasis, acute cholecystitis status post ERCP with biliary stent placement and sphincterotomy, status post cholecystectomy and ventral hernia repair, hypokalemia Discharge Exam Constitutional WD/WN, vitals as above Eyes + anicteric sclerae Neck trachea midline, no thyromegaly Respiratory normal respiratory effort, lungs clear to auscultation Cardiovascular Rate/Rhythm: regular rate and + irregularly irregular Heart Sounds: no murmur Extremities: no edema Chest (Breasts) Chest: normal inspection of chest Gastrointestinal (Abdomen) Inspection/Auscultation: normal bowel sounds; + abdomen abnormal to inspection (Multiple laparoscopic incisions with dressings clean dry and intact ) and abdomen not distended Percussion/Palpation: abdomen soft; abdomen nontender Musculoskeletal Extremities: extremities normal to inspection; no cyanosis and no clubbing Skin no rashes, warm and dry Neurologic moves all extremities and awake; no focal motor deficits Psychiatric A+Ox3, euthymic affect Lymphatic no lymphedema Discharge Data Allergies Allergy/AdvReac Type Severity Reaction Status Date / Time tetanus toxoid, adsorbed Allergy Mild LOCAL Verified 10/03/21 01:11 REACTION Consultations 10/03/21 03:56 Consult General Surgery Stat ED Decision to Admit Stat 10/03/21 07:46 Consult Gastroenterology Routine 10/03/21 12:39 Consult Cardiology Routine Procedures Performed Operation Date: 10/03/21 08:20 Actual Procedures p Endoscopic Ultrasonography Upper, esophagogastroduodenoscopy(Not Applicable) - Martir Chatman MD s Endoscopic Retrograde Cholangiopancreatogram(Not Applicable) - Martir Chatman MD Operation Date: 10/04/21 11:20 Actual Procedures p Laparoscopic Cholecystectomy, Ventral Hernia Repair(Not Applicable) - Vini Carl MD Ordered Studies 10/03/21 [place] ERCP biliary ductal Routine 10/03/21 00:22 US abdomen limited Urgent 10/03/21 14:02 US upper EUS PACS images Routine Hospital Course (1) Acute cholecystitis: 70yo female with history of AF on Coumadin anticoagulation, HTN, HLP presenting with RUQ pain. Pain similar to prior biliary pain. She was afebrile but labs significant for neutrophil predominant leukocytosis with WBC=22.38 with bands. Elevation of FSB=829, ALT=99 and Tbili=2.4. RUQ US with distended gallbladder with dependent 9mm stone and mild pericholecystic fluid. She was admitted and had urgent ERCP on 10/03 after discussion with GI-had choledocholithiasis with biliary stent placement and sphincterotomy Her Coumadin was reversed on 10/03 with 10 mg of IV vitamin K -Now status post cholecystectomy on 10/04-doing very well postoperatively -Received Zosyn 3.375gm IV q 8 and convert to p.o. Augmentin on discharge for total of 10 days-needs 8 more days on discharge -Tylenol and Percocet as needed PRN pain after discharge -Bowel regimen with colace and Miralax PRN -General Surgery and gastroenterology consultations appreciated Remains afebrile leukocytosis improving, LFTs remain elevated but continued to downtrend from previous almost back to normal -Okay to restart Coumadin at usual home doses and have INR checked on Friday -Follow LFTs as an outpatient with PCP in 1 week -Will need repeat ERCP in 6-8 weeks with GI to remove biliary stent -Tolerating regular diet the time of discharge -Follow-up with general surgery in 2 weeks (2) Ascending cholangitis: As above (3) Choledocholithiasis: As above (4) Hypokalemia: K=2.8 on arrival and now normalized after replacement Patient is on daily Triamterene/HCTZ with K supplementation outpatient -Okay to restart triamterene/HCTZ and potassium supplement Given extra 20 mEq p.o. potassium chloride on the day of discharge -Follow BMP (5) Atrial fibrillation: Mildly elevated HR in setting of pain and possible infection upon arrival which is now improved Anticoagulated on Coumadin which has been reversed for surgery as above -Continue Metoprolol 50mg po BID Restart Coumadin and check INR on Friday as above (6) Hypertension: Blood pressure well controlled -Continue metoprolol 50mg po BID -Restart Triamterene-HCTZ on the day of discharge (7) Hypothyroidism: Chronic. TSH 0.2 in 05/2021 -Continue Synthroid 112 mcg po daily Ppx - SCDs Code - DNR/DNI per discussion with patient DIspo -discharge to home Total Time Total Time Spent Total Time Spent (In Minutes): 35 minutes Total Time Includes: Examination of the Patient, Discharge Planning, Medication Reconciliation and Communication With Other Providers (General surgery) Discharge Plan Discharge Items Patient Disposition: Home - Self-Care Reason For Visit: ACUTE CHOLECYSTITIS Discharge Diagnosis: Ascending cholangitis, choledocholithiasis, acute cholecystitis, status post cholecystectomy and biliary stent placement, ventral hernia repair without mesh Condition on Discharge: Good Activity: As commented below Non-emergency contact: Primary Care Provider, Surgeon and Acid Purification Equipment Operator Call non-emergency contact if: you have any medication questions, your symptoms worsen, your pain is not controlled, your pain is worsening, your pain is unusual for you, your pain is concerning for you, you have a fever, your wound has increased redness, your wound has increased drainage and your wound pain has increased Follow-up/Referrals: Julia Waller DO [Primary Care Provider] - (Follow-up within 1 to 2 weeks.) Vini Carl MD [Physician] - (Follow-up as directed.) Martir Chatman MD [Hospitalist] - (Follow-up for repeat ERCP in 6-8 weeks. [facility] gastro[facility] office should be contacting you with this appointment date and time.) Diet: Heart Healthy and Low Fat Addtl Attending Provider Instructions: Please continue to take the antibiotics for 8 more days-this is Augmentin 1 tablet twice daily. You can take oxycodone/acetaminophen for moderate to severe pain and Tylenol as needed for mild pain. You can restart your Coumadin today and have your INR checked on Friday at the lab in [place]. Dr. Waller can continue to manage your Coumadin after discharge. Addtl Director Of Anesthesia Services Provider Instructions: Post-Surgical ~Discharge Instructions Activity Recommendations: - lifting limitation: (20 pounds for 4 weeks), - exercise/sex/sports limit: (nonstrenuous for 2 weeks), - driving or machine use limit: (none for 1 week or until pain free and no longer taking narcotic pain medication), - Shower/bathe limit: (march shower beginning Friday) Diet: - Resume previous diet SPECIAL CARE INSTRUCTIONS: - May shower on Friday. Keep dressing dry until Friday. Friday, remove outer dressings and let water run over area and pat dry. - Leave steri strips on for one week and then remove. They may fall off on their own that is okay. - Call the surgeon's office with any questions or concerns - - (ex. temperature higher than 101 degrees F, excessive bleeding or pain). MEDICATIONS: - Resume previous medications unless instructed otherwise by your surgeon. - Percocet 1 every 4 hours, as needed for moderate to severe pain - May want to take daily stool softener (Colace) while taking narcotic pain medication to prevent constipation and straining. FOLLOW UP VISIT: - If not already scheduled, please call the office to schedule a two week follow-up appointment. Office number You had a ventral hernia repair without mesh at time of your gallbladder surgery. Recommend no heavy lifting over 20 pounds for at least 4 weeks. No strenuous activity. Pending Studies at Discharge: No Stand-Alone Forms: My [facility] Medications and DC Order Prescriptions: New oxycodone-acetaminophen 5-300 mg tablet 1 tab PO Q6H PRN (Reason: pain (scale score 7-10)) Qty: 5 RF: 0 acetaminophen 325 mg Tablet 650 mg PO Q4H PRN (Reason: Mild pain) Qty: 30 RF: 0 docusate sodium 100 mg Capsule 100 mg PO BID PRN (Reason: constipation) Qty: 14 RF: 0 amoxicillin-pot clavulanate [Augmentin] 875-125 mg tablet 1 tab PO BID Qty: 16 RF: 0 Continued potassium chloride [Klor-Con M20] 20 mEq tablet,ER particles/crystals 20 meq PO DAILY Qty: 90 RF: 3 levothyroxine 112 mcg tablet 112 mcg PO DAILY Qty: 90 RF: 1 warfarin 5 mg tablet 5 mg PO .COMPLEX Qty: 90 RF: 1 triamterene-hydrochlorothiazid 75-50 mg tablet 1 tab PO DAILY Qty: 90 RF: 3 metoprolol tartrate 50 mg tablet 50 mg PO BID Qty: 180 RF: 1 coenzyme Q10 200 mg capsule 200 mg PO Q OTHER DAY RF: 0 ascorbic acid (vitamin C) 1,000 mg tablet 1 gm PO DAILY RF: 0 clindamycin phosphate 1 % gel 1 applic topical DAILY PRN (Reason: folliculitis) Qty: 60 RF: 1 vitamin B complex Tablet 1 tab PO DAILY RF: 0 Discharge Orders: Discharge Order (Routine); Ordered 10/05/21 Ordered By: Beth Berman Admission Data Admit Date/Time: 10/03/21 04:03 Attending Provider: Beth Berman Admit Provider: Leesa Hickman Primary Care Provider: Julia Waller Other Providers: Vini Carl ; Leesa Hickman ; Martir Chatman ; Rusty Maria Coding Level of Care Code D/C DAY MANAGEMENT >30 MINS Diagnoses Acute cholecystitis K81.0 Ascending cholangitis K83.09 Choledocholithiasis K80.50 Hypokalemia E87.6 Atrial fibrillation I48.20 Atrial fibrillation type: unspecified chronic Hypertension I10 Hypothyroidism E03.9
[2021-10-05] MEDS ORDERED: WARFARIN SOD 5 MG TAB PO SCH (18:00)
[2021-10-10] MEDS ORDERED: WARFARIN SOD 2.5 MG TAB PO SCH (16:00)
== END 2021-10-05 15:45 | disposition home or self-care (01) | DRG 418 ==
LOC: ED 23:49 → EDINP 10-03 04:03 → SUATTDRO 10-03 04:03 → 3E 10-03 06:00